=== PATIENT | female | born 1945 | race Caucasian/White ===

== ENCOUNTER 2017-10-21 12:08 | Observation (INO) | payer MEDICARE, MEDICAID ==
[~2017-10-21] VITALS: Ht 160 cm; Wt 92.6 kg
[~2017-10-21 12:08] MED LIST changes: -APIX5TAB PO; -HUM100VI2 SC; -LEVO500T83 PO
[2017-10-21] MEDS ORDERED: NS(*) 0.9% 1000 ML BAG 1,000 ML IV ONE (12:24)
[2017-10-21] MEDS ORDERED: ACETAMINOPHEN(*)1000 MG/100 ML 100 ML IVPB ONE (12:25)
[2017-10-21 12:33] LABS: PLATELET COUNT, AUTOMATED 121 K/uL (150-450)
--- NOTE | 2017-10-21 12:47 | ER Report ---
History and Physical Time Seen By MD: 12:16 Hx. of Stated Complaint: FEVER, AMS HPI/ROS CHIEF COMPLAINT: Fever, altered mental status HISTORY OF PRESENT ILLNESS: 72-year-old female patient presents to emergency room with complaint of altered mental status. Patient states that she is just gotten back from [place]. She was visiting family there. She states that she' s been having a cough. She states she's also had fever. On admission to the emergency room patient had fever 102.5. Patient did take her morning medications with some milk. Other than that she's not had anything to eat or drink. Patient has had no appetite. The niece was there with her who acts as a historian states that she is unsure when the last time the patient ate anything. Patient has been nauseated but denies having any vomiting, diarrhea. REVIEW OF SYSTEMS: Respiratory: As noted above Cardiovascular: No chest pain, no palpitations. Gastrointestinal: No vomiting, no abdominal pain. Musculoskeletal: No back pain. Allergies: Coded Allergies: Penicillins (Verified Allergy, Intermediate, HIVES, 10/21/17) codeine (Verified Allergy, Intermediate, HIVES, 10/21/17) lisinopril (Verified Allergy, Intermediate, ITCHING, RASH, 10/21/17) Iodinated Contrast- Oral and IV Dye (Verified Allergy, Unknown, 10/21/17) fluconazole (Verified Adverse Reaction, Intermediate, DIARRHEA, 10/21/17) hydromorphone HCl (Verified Adverse Reaction, Intermediate, NAUSEA/ VOMITING. "HEAD SPINNING", 10/21/17) Home Meds Active Scripts Clonidine Hcl (CLONIDINE HCL) 0.1 Mg Tablet, 1 TAB PO BID, #180 TAB 0 Refills Prov:SANTOS HAMLIN APRN 10/13/17 Allopurinol (Allopurinol) 300 Mg Tablet, 1 TAB PO QDAY, #90 TAB 2 Refills Prov:SANTOS HAMLIN APRN 10/13/17 Gabapentin (GABAPENTIN) 600 Mg Tablet, 1 TAB PO QHS, #90 TAB 2 Refills Prov:SANTOS HAMLIN APRN-Grace 09/27/17 Lidocaine (Lidocaine) 5 % Adh..patch, 1 PATCH TOP DAILY, #30 PATCH [address] for 12 hours then remove and leave off for 12 hours prior to replacing with a new patch Prov:SANTOS AHMLIN APRNP-C 09/12/17 Atorvastatin Calcium (ATORVASTATIN CALCIUM) 40 Mg Tablet, 1 TAB PO QDAY, #90 TAB 2 Refills Prov:SANTOS HAMLIN APRNP-C 08/12/17 Insulin NPH Hum/Reg Insulin Hm (Humulin 70-30 Vial) 100 Unit/Ml (70-30) Vial, 65 UNITS SUBQ BID, #4 VIAL 5 Refills Sliding Scale Prov:SANTOS HAMLIN APRNP-C 07/25/17 Furosemide (FUROSEMIDE) 40 Mg Tablet, 1 TAB PO BID, #180 TAB 1 Refill Prov:SANTOS HAMLIN APRNP-C 07/21/17 Carvedilol (CARVEDILOL) 12.5 Mg Tablet, 1 TAB PO BID, #180 TAB 3 Refills Prov:SANTOS HAMLIN APRNP-C 05/30/17 Rivaroxaban 15 Mg (XARELTO 15 MG) 15 Mg Tablet, 1 TAB PO DAILY, #90 TAB 1 Refill Prov:SANTOS HAMLIN APRNP-C 05/17/17 Wheelchair (WHEELCHAIR) 1 Each Each, EACH MC, #1 Prov:SANTOS HAMLIN APRNP-C 04/08/17 Amlodipine Besylate (AMLODIPINE BESYLATE) 10 Mg Tablet, 1 TAB PO QDAY, #90 TAB 3 Refills Prov:SANTOS HAMLIN APRN INTEGRATED MARKETING SPECIALIST-C 03/11/17 [Diabetic Supplies] No Conflict Check, 1 [facility] MC 2-3XD, #300 EACH Prov:SANTOS HAMLIN APRN INTEGRATED MARKETING SPECIALIST-C 08/27/16 Reported Medications Oxybutynin Chloride (DITROPAN XL) 10 Mg Tab.er.24, 10 MG PO QDAY, TAB 07/11/17 Potassium Chloride (KLOR-CON M10) 10 Meq Tab.er.prt, 10 MEQ PO QDAY 07/01/17 Nitroglycerin (NITROGLYCERIN) 0.4 Mg Tab.subl, 0.4 MG SL Q5MIN Y for CHEST PAIN 12/09/16 Ipratropium/Albuterol Sulfate (IPRAT-ALBUT 0.5-3(2.5) MG/3 ML) 3 Ml Ampul.neb, 1 VIAL IH Q6H Y for SHORTNESS OF BREATH 12/09/16 Carboxymethylcellulose Sodium (LUBRICANT EYE DROPS) 1 Each Droperette, 1 DROP OP Q4H 12/09/16 Ranitidine Hcl (RANITIDINE HCL) 150 Mg Capsule, 1 CAP PO QDAY, CAPSULE 12/09/16 Vit C/E/Zn/Coppr/Lutein/Zeaxan (Preservision Areds 2 Softgel) 1 Each Capsule, 1 CAP PO BID 12/09/16 Calcium Carb & Cit/Vitamin D3 (CALCIUM + D3 ER TABLET) 1 Each Tablet.er, 1 EACH PO QDAY 12/09/16 Aspirin (ASPIRIN) 81 Mg Tab.chew, 1 TAB PO QDAY, TAB.CHEW 06/02/15 Oxygen (OXYGEN) 2 L Inha, 2 L INH CONTINUOUS, L 02/13/15 Docusate Sodium (Colace 100 Mg) 100 Mg Cap, 1 CAP PO BID, 0 Refills 03/31/12 Past Medical/Surgical History Patient has a past medical history of a cardiac arrest approximately one year ago, [place], angina, CHF, hypertension, hyperlipidemia, shortness of breath with exertion, pneumonia, COPD, 41 year pack history of smoking, chronic constipation , reflux, hiatal hernia, kidney stones, stents, frequent UTIs, arthritis, leg fracture, ankle fracture, back pain, diabetes, bruises easily, skin cancer. Patient has surgical history of aortic valve replacement, pacemaker, abdominal surgery, appendectomy, cholecystectomy, surgery, back surgery, tonsillectomy , cataract surgery, skin cancer removal, hernia repair. Patient has a family medical history of cancer, CAD, diabetes. Reviewed Nurses Notes: Yes Hx Smoking: Yes ("SMOKED A LONG TIME". "I STARTED VERY YOUNG AND QUIT AT AGE 60 ) Smoking Status: Former Smoker Exposure to Second Hand Smoke?: No Hx Substance Use Disorder: No Hx Alcohol Use: No Constitutional Vital Sign - Last 24 Hours 10/21/17 10/21/17 10/21/17 10/21/17 12:16 12:30 12:38 12:38 Temp 102.5 Pulse 99 99 Resp 17 21 B/P (MAP) 124/66 (85) 134/65 (88) 134/65 Pulse Ox 94 95 O2 Delivery Nasal Cannula 10/21/17 10/21/17 10/21/17 10/21/17 13:00 13:08 13:30 13:38 Pulse 97 95 Resp 20 21 B/P (MAP) 137/69 (91) 114/65 (81) Pulse Ox 97 98 10/21/17 10/21/17 14:00 14:55 Temp 99.6 B/P (MAP) 111/54 (73) Physical Exam General Appearance: The patient is alert, has no immediate need for airway protection and no current signs of toxicity. Respiratory: Chest is non tender, lungs are clear to auscultation. Cardiac: regular rate and rhythm Gastrointestinal: Abdomen is soft and non tender, no masses, bowel sounds normal. Musculoskeletal: Neck: Neck is supple and non tender. Extremities have full range of motion and are non tender. Skin: No rashes or lesions. Patient does have some redness to the right side of the abdomen, on exam the skin is warm to the touch, however it is warm all over. DIFFERENTIAL DIAGNOSIS: After history and physical exam differential diagnosis was considered for fever in adults including but not limited to pneumonia, urinary tract infection, viral syndrome, and influenza. Medical Decision Making Data Points Result Diagram: 10/21/17 1206 10/21/17 1206 Laboratory Hematology Test 10/21/17 12:06 10/21/17 12:20 10/21/17 12:34 Red Blood Count 3.50 M/uL (4.17-5.56) Mean Corpuscular Volume 97.7 fL (80.0-96.0) Mean Corpuscular Hemoglobin 32.3 pg (26.0-33.0) Mean Corpuscular Hemoglobin Concent 33.1 g/dL (32.0-36.0) Red Cell Distribution Width 16.6 % (11.5-14.5) Mean Platelet Volume 7.2 fL (7.2-11.1) Neutrophils (%) (Auto) 87.1 % (39.4-72.5) Lymphocytes (%) (Auto) 4.4 % (17.6-49.6) Monocytes (%) (Auto) 7.4 % (4.1-12.4) Eosinophils (%) (Auto) 0.6 % (0.4-6.7) Basophils (%) (Auto) 0.5 % (0.3-1.4) Nucleated RBC Relative Count (auto) 0.0 /100WBC Neutrophils # (Auto) 12.4 K/uL (2.0-7.4) Lymphocytes # (Auto) 0.6 K/uL (1.3-3.6) Monocytes # (Auto) 1.1 K/uL (0.3-1.0) Eosinophils # (Auto) 0.1 K/uL (0.0-0.5) Basophils # (Auto) 0.1 K/uL (0.0-0.1) Nucleated RBC Absolute Count (auto) 0.00 K/uL Erythrocyte Sedimentation Rate 34 mm/HOUR (0-30) Sodium Level 137 mmol/L (137-145) Potassium Level 4.5 mmol/L (3.5-5.0) Chloride Level 97 mmol/L (98-107) Carbon Dioxide Level 31 mmol/L (22-31) Blood Urea Nitrogen 40 mg/dl (7-18) Creatinine 1.10 mg/dl (0.52-1.04) Glomerular Filtration Rate Calc 48.6 Random Glucose 250 mg/dl (75-110) Calcium Level 9.2 mg/dl (8.4-10.2) Total Bilirubin 0.9 mg/dl (0.2-1.3) Aspartate Amino Transf (AST/SGOT) 23 U/L (0-35) Alanine Aminotransferase (ALT/SGPT) 29 U/L (0-56) Alkaline Phosphatase 92 U/L (0-126) C-Reactive Protein 1.4 mg/dl (<1.0) Total Protein 6.7 gm/dl (6.3-8.2) Albumin 3.7 g/dl (3.5-5.0) Influenza Type A Antigen Negative (NEGATIVE) Influenza Type B Antigen Negative (NEGATIVE) Urine Color Yellow Urine Clarity Slightly-cloudy Urine pH 5.0 pH (4.8-9.5) Urine Specific [place] 1.010 Urine Protein 100 mg/dL (NEGATIVE) Urine Glucose (UA) 50 mg/dL (NEGATIVE) Urine Ketones Negative mg/dL (NEGATIVE) Urine Blood Large (NEGATIVE) Urine Nitrite Negative (NEGATIVE) Urine Bilirubin Negative (NEGATIVE) Urine Urobilinogen Negative mg/dL (0.2-1.9) Urine Leukocyte Esterase Moderate (NEGATIVE) Urine RBC 69 /HPF (0-2/HPF) Urine WBC 93 /HPF (0-5/HPF) Urine WBC Clumps Few /HPF Urine Squamous Epithelial Cells Few /LPF (</=FEW) Urine Amorphous Crystals Few /HPF Urine Bacteria Few /HPF (NONE-FEW) Urine Mucus None /HPF (NONE-FEW) Chemistry Test 10/21/17 12:06 10/21/17 12:20 10/21/17 12:34 White Blood Count 14.3 k/uL (4.5-11.0) Red Blood Count 3.50 M/uL (4.17-5.56) Hemoglobin 11.3 g/dL (12.0-16.0) Hematocrit 34.2 % (34.0-47.0) Mean Corpuscular Volume 97.7 fL (80.0-96.0) Mean Corpuscular Hemoglobin 32.3 pg (26.0-33.0) Mean Corpuscular Hemoglobin Concent 33.1 g/dL (32.0-36.0) Red Cell Distribution Width 16.6 % (11.5-14.5) Platelet Count 121 K/uL (150-450) Mean Platelet Volume 7.2 fL (7.2-11.1) Neutrophils (%) (Auto) 87.1 % (39.4-72.5) Lymphocytes (%) (Auto) 4.4 % (17.6-49.6) Monocytes (%) (Auto) 7.4 % (4.1-12.4) Eosinophils (%) (Auto) 0.6 % (0.4-6.7) Basophils (%) (Auto) 0.5 % (0.3-1.4) Nucleated RBC Relative Count (auto) 0.0 /100WBC Neutrophils # (Auto) 12.4 K/uL (2.0-7.4) Lymphocytes # (Auto) 0.6 K/uL (1.3-3.6) Monocytes # (Auto) 1.1 K/uL (0.3-1.0) Eosinophils # (Auto) 0.1 K/uL (0.0-0.5) Basophils # (Auto) 0.1 K/uL (0.0-0.1) Nucleated RBC Absolute Count (auto) 0.00 K/uL Erythrocyte Sedimentation Rate 34 mm/HOUR (0-30) Glomerular Filtration Rate Calc 48.6 Calcium Level 9.2 mg/dl (8.4-10.2) Total Bilirubin 0.9 mg/dl (0.2-1.3) Aspartate Amino Transf (AST/SGOT) 23 U/L (0-35) Alanine Aminotransferase (ALT/SGPT) 29 U/L (0-56) Alkaline Phosphatase 92 U/L (0-126) C-Reactive Protein 1.4 mg/dl (<1.0) Total Protein 6.7 gm/dl (6.3-8.2) Albumin 3.7 g/dl (3.5-5.0) Influenza Type A Antigen Negative (NEGATIVE) Influenza Type B Antigen Negative (NEGATIVE) Urine Color Yellow Urine Clarity Slightly-cloudy Urine pH 5.0 pH (4.8-9.5) Urine Specific [place] 1.010 Urine Protein 100 mg/dL (NEGATIVE) Urine Glucose (UA) 50 mg/dL (NEGATIVE) Urine Ketones Negative mg/dL (NEGATIVE) Urine Blood Large (NEGATIVE) Urine Nitrite Negative (NEGATIVE) Urine Bilirubin Negative (NEGATIVE) Urine Urobilinogen Negative mg/dL (0.2-1.9) Urine Leukocyte Esterase Moderate (NEGATIVE) Urine RBC 69 /HPF (0-2/HPF) Urine WBC 93 /HPF (0-5/HPF) Urine WBC Clumps Few /HPF Urine Squamous Epithelial Cells Few /LPF (</=FEW) Urine Amorphous Crystals Few /HPF Urine Bacteria Few /HPF (NONE-FEW) Urine Mucus None /HPF (NONE-FEW) Urinalysis Test 10/21/17 12:34 Urine Color Yellow Urine Clarity Slightly-cloudy Urine pH 5.0 pH (4.8-9.5) Urine Specific [place] 1.010 Urine Protein 100 mg/dL (NEGATIVE) Urine Glucose (UA) 50 mg/dL (NEGATIVE) Urine Ketones Negative mg/dL (NEGATIVE) Urine Blood Large (NEGATIVE) Urine Nitrite Negative (NEGATIVE) Urine Bilirubin Negative (NEGATIVE) Urine Urobilinogen Negative mg/dL (0.2-1.9) Urine Leukocyte Esterase Moderate (NEGATIVE) Urine RBC 69 /HPF (0-2/HPF) Urine WBC 93 /HPF (0-5/HPF) Urine WBC Clumps Few /HPF Urine Squamous Epithelial Cells Few /LPF (</=FEW) Urine Amorphous Crystals Few /HPF Urine Bacteria Few /HPF (NONE-FEW) Urine Mucus None /HPF (NONE-FEW) EKG/Imaging Imaging EXAMINATION: CT abdomen without IV contrast CT pelvis without IV contrast HISTORY: Fever. Abdominal tenderness. COMPARISON: 08/24/2017. TECHNIQUE: Axial images were taken through the abdomen and pelvis without intravenous contrast. Sagittal and coronal reformatted images are also submitted. One of the following dose optimization techniques was utilized in the performance of this exam: Automated exposure control; adjustment of the mA and/ or kV according to the patient's size; or use of an iterative reconstruction technique. Specific details can be referenced in the facility's radiology CT exam operational policy. FINDINGS: Please note that without intravenous contrast, sensitivity to detection of parenchymal disease is limited. Liver/biliary: Postcholecystectomy. The liver is unremarkable. Pancreas: Pancreas is atrophic. Spleen: Negative. Adrenal glands: Negative. Kidneys: Multiple small nonobstructing calculi in the left kidney, similar to prior examination, the largest measuring 6 mm. Cortical atrophy of both kidneys. There are multiple cysts in both kidneys. Stable stranding in the perinephric fat. No hydronephrosis or ureteral calculi. Pelvic structures: Negative. Bowel: Colonic diverticulosis without evidence of diverticulitis. Appendix is not identified. The bowel is normal caliber without obvious focal wall thickening. Peritoneum/retroperitoneum/mesenteries: Stable stranding in the perinephric fat. No intraperitoneal free air or free fluid. Vessels: Coronary artery calcifications. Extensive calcification of the aorta, iliofemoral arteries, celiac trunk and its branches, and superior and inferior mesenteric arteries. Musculoskeletal/body wall: No significant change in the fluid collection in the lower anterior abdominal wall extending across the anterior abdomen, measuring up to 2.1 cm in AP thickness. There is skin thickening and subcutaneous stranding in the anterior abdominal wall, similar to prior examination. Advanced disc and facet degenerative changes in the thoracolumbar spine. Fusion of the L2 and L3 vertebral bodies, unchanged. Dense material within the subcutaneous soft tissues in the lower back posterior to the spine at the L1 level, unchanged. Laxity in the anterior abdominal wall. Lymph node assessment: Negative. Lower chest: Trace right pleural effusion. Mild subsegmental atelectasis at the lung bases. AICD/pacer leads are partially visualized at the heart. Aortic valve prosthesis. Mitral annulus calcifications. IMPRESSION: No significant change in the fluid collection in the lower anterior abdominal wall. Infection of this fluid collection cannot be excluded on this exam. Small nonobstructing calculi in the left kidney. No hydronephrosis or ureteral calculi. Colonic diverticulosis without evidence of diverticulitis. Trace right pleural effusion. Multiple other chronic findings as detailed in the body of report. Report Dictated By: Martinez Ziegler MD at 10/21/2017 2:28 PM Report E-Signed By: Martinez Ziegler MD at 10/21/2017 2:51 PM CHEST SINGLE AP Indication: Fever, cough and shortness breath for 2 days.. Comparison: 11/06/2016. Findings: Cardiac silhouette remains mildly enlarged but unchanged. Valve replacement changes are again identified. Left subclavian 2-lead pacemaker is in place. Recess silhouette and pulmonary vessels within normal limits. There is no focal infiltrate or lobar consolidation. No pneumothorax or pleural effusion. No nodule. Chronic interstitial changes. Upper abdomen is unremarkable. No acute bony abnormality. IMPRESSION: 1. Stable enlarged cardiac silhouette without indication of edema or infiltrate. Report Dictated By: Jason Nick at 10/21/2017 1:00 PM Report E-Signed By: Jason Nick at 10/21/2017 1:01 PM ED Course/Re-evaluation ED Course Patient was admitted to the exam room, history and physical were obtained. Differential diagnoses were considered. On examination patient has obvious fever she is warm to touch, she also has erythema to the lower abdomen. A CBC, CMP, urinalysis, chest x-ray were done. Patient had obvious urinary tract infection. Patient had a fever 102.5 on admission to the emergency room. Urinalysis was positive for urinary tract infection. Patient had a white count of 14,000 with left shift. A CT scan of abdomen and pelvis was done which showed a collection of fluid in the anterior abdominal wall. I reevaluated the patient, at that time the erythema is warm to the touch. I discussed the findings with the patient and her family. I discussed with them that I felt that she probably should be admitted to the hospital. I spoke with Dr. Banks, hospitalist who agreed to accept the patient for admission. Patient be except the hospital with diagnosis of urinary tract infection, cellulitis and fever. Decision to Disposition Date: Oct 21, 2017 Decision to Disposition Time: 15:22 Depart Departure Latest Vital Signs Vital Signs Date Time Temp Pulse Resp B/P (MAP) Pulse Ox O2 Delivery O2 Flow Rate FiO2 10/21/17 14:55 99.6 10/21/17 14:00 111/54 (73) 10/21/17 13:38 95 21 98 10/21/17 12:38 Nasal Cannula Impression: Primary Impression: UTI (urinary tract infection) Additional Impressions: Cellulitis Fever Condition: Condition Unchanged Disposition: Admitted from ER Referrals: SANTOS HAMLIN APRN INTEGRATED MARKETING SPECIALIST-C (PCP) Problem Qualifiers Primary Impression: UTI (urinary tract infection) Urinary tract infection type: acute cystitis Hematuria presence: with hematuria Qualified Codes: N30.01 - Acute cystitis with hematuria Additional Impressions: Cellulitis Site of cellulitis: trunk Site of cellulitis of trunk: abdominal wall Qualified Codes: L03.311 - Cellulitis of abdominal wall Fever Fever type: unspecified Qualified Codes: R50.9 - Fever, unspecified SCOTTIE PORTER INTEGRATED MARKETING SPECIALIST Oct 21, 2017 12:47
--- NOTE | 2017-10-21 13:05 | RADIOLOGY IMAGING REPORT ---
FACILITY: [facility] PATIENT NAME: Eugenia Rushing : 1945 MR: [id number] V: [id number] EXAM DATE: ORDERING PHYSICIAN: SCOTTIE PORTER TECHNOLOGIST: Location: [facility] [place] Patient: Eugenia Rushing : 1945 Visit/Account:[id number] Date of Sevice: 10/21/2017 CHEST SINGLE AP Indication: Fever, cough and shortness breath for 2 days.. Comparison: 11/06/2016. Findings: Cardiac silhouette remains mildly enlarged but unchanged. Valve replacement changes are again identif ied. Left subclavian 2-lead pacemaker is in place. Recess silhouette and pulmonary vessels within nor mal limits. There is no focal infiltrate or lobar consolidation. No pneumothorax or pleural effusion. No nodule. Chronic interstitial changes. Upper abdomen is unremarkable. No acute bony abnormality. IMPRESSION: 1. Stable enlarged cardiac silhouette without indication of edema or infiltrate. Report Dictated By: Jason Nick at 10/21/2017 1:00 PM Report E-Signed By: Jason Nick at 10/21/2017 1:01 PM WSN:[id number]
[2017-10-21] MEDS ORDERED: IOPAMIDOL 76% 75 ML INFUS BTL 0 ML ONE (13:33)
[2017-10-21] MEDS ORDERED: NS 0.9% 50 ML VIAL 0 ML ONE (13:33)
--- NOTE | 2017-10-21 14:55 | RADIOLOGY IMAGING REPORT ---
[place] [facility] [place]IENT NAME: Eugenia Rushing : 1945 MR: [id number] V: [id number] EXAM DATE: ORDERING PHYSICIAN: SCOTTIE PORTER TECHNOLOGIST: Location: [facility] - [place] Patient: Eugenia Rushing : 1945 Visit/Account:[id number] Date of Sevice: 10/21/2017 EXAMINATION: CT abdomen without IV contrast CT pelvis without IV contrast HISTORY: Fever. Abdominal tenderness. COMPARISON: 08/24/2017. TECHNIQUE: Axial images were taken through the abdomen and pelvis without intravenous contrast. Sag ittal and coronal reformatted images are also submitted. One of the following dose optimization techniques was utilized in the performance of this exam: Autom ated exposure control; adjustment of the mA and/or kV according to the patient's size; or use of an i terative reconstruction technique. Specific details can be referenced in the facility's radiology C T exam operational policy. FINDINGS: Please note that without intravenous contrast, sensitivity to detection of parenchymal disease is francisco ited. Liver/biliary: Postcholecystectomy. The liver is unremarkable. Pancreas: Pancreas is atrophic. Spleen: Negative. Adrenal glands: Negative. Kidneys: Multiple small nonobstructing calculi in the left kidney, similar to prior examination, the largest measuring 6 mm. Cortical atrophy of both kidneys. There are multiple cysts in both kidneys. S table stranding in the perinephric fat. No hydronephrosis or ureteral calculi. Pelvic structures: Negative. Bowel: Colonic diverticulosis without evidence of diverticulitis. Appendix is not identified. The bow el is normal caliber without obvious focal wall thickening. Peritoneum/retroperitoneum/mesenteries: Stable stranding in the perinephric fat. No intraperitoneal f ree air or free fluid. Vessels: Coronary artery calcifications. Extensive calcification of the aorta, iliofemoral arteries, celiac trunk and its branches, and superior and inferior mesenteric arteries. Musculoskeletal/body wall: No significant change in the fluid collection in the lower anterior abdomi nal wall extending across the anterior abdomen, measuring up to 2.1 cm in AP thickness. There is skin thickening and subcutaneous stranding in the anterior abdominal wall, similar to prior examination. Advanced disc and facet degenerative changes in the thoracolumbar spine. Fusion of the L2 and L3 vert ebral bodies, unchanged. Dense material within the subcutaneous soft tissues in the lower back customer support consultant ior to the spine at the L1 level, unchanged. Laxity in the anterior abdominal wall. Lymph node assessment: Negative. Lower chest: Trace right pleural effusion. Mild subsegmental atelectasis at the lung bases. AICD/pace r leads are partially visualized at the heart. Aortic valve prosthesis. Mitral annulus calcifications . IMPRESSION: No significant change in the fluid collection in the lower anterior abdominal wall. Infection of this fluid collection cannot be excluded on this exam. Small nonobstructing calculi in the left kidney. No hydronephrosis or ureteral calculi. Colonic diverticulosis without evidence of diverticulitis. Trace right pleural effusion. Multiple other chronic findings as detailed in the body of report. Report Dictated By: Martinez Ziegler MD at 10/21/2017 2:28 PM Report E-Signed By: Martinez Ziegler MD at 10/21/2017 2:51 PM WSN:[id number]
[2017-10-21 16:36] VITALS: BP 127/63
[2017-10-21] MEDS: INSULIN HUM LISPRO 100 UN/ML 3 ML VIAL SUBQ PRN ×2 (17:37→22:15)
--- NOTE | 2017-10-21 17:54 | History & Physical ---
History of Present Illness Chief Complaint Cough and fever History of Present Illness This patient presented to the emergency room complaining of cough and fever. She reports that her symptoms started approximately 3 days ago when she returned from [place]. She has also had redness of her abdomen. History Problems: (1) DM2 (diabetes mellitus, type 2) (2) Essential hypertension (3) COPD (chronic obstructive pulmonary disease) Status: Chronic (4) Hyperlipidemia Status: Chronic (5) CAD (coronary artery disease) Status: Chronic (6) Gout Status: Chronic (7) Hx of cholecystectomy Status: Chronic (8) Hx of ventral hernia repair Status: Chronic (9) Hx of tonsillectomy Status: Chronic (10) History of aortic valve replacement with bioprosthetic valve Status: Chronic Home Meds Active Scripts Clonidine Hcl (CLONIDINE HCL) 0.1 Mg Tablet, 1 TAB PO BID, #180 TAB 0 Refills Prov:SANTOS HAMLIN APRN-C 10/13/17 Allopurinol (Allopurinol) 300 Mg Tablet, 1 TAB PO QDAY, #90 TAB 2 Refills Prov:SANTOS HAMLIN APRNC 10/13/17 Gabapentin (GABAPENTIN) 600 Mg Tablet, 1 TAB PO QHS, #90 TAB 2 Refills Prov:SANTOS HAMLIN APRN-C 09/27/17 Lidocaine (Lidocaine) 5 % Adh..patch, 1 PATCH TOP DAILY, #30 PATCH [address] in [address] for 12 hours then remove and leave off for 12 hours prior to replacing with a new patch Prov:SANTOS HAMLIN APRN 09/12/17 Atorvastatin Calcium (ATORVASTATIN CALCIUM) 40 Mg Tablet, 1 TAB PO QDAY, #90 TAB 2 Refills Prov:SANTOS HAMLIN APRNC 08/12/17 Insulin NPH Hum/Reg Insulin Hm (Humulin 70-30 Vial) 100 Unit/Ml (70-30) Vial, 65 UNITS SUBQ BID, #4 VIAL 5 Refills Sliding Scale Prov:SANTOS HAMLIN APRN-C 07/25/17 Furosemide (FUROSEMIDE) 40 Mg Tablet, 1 TAB PO BID, #180 TAB 1 Refill Prov:SANTOS HAMLIN APRNC 07/21/17 Carvedilol (CARVEDILOL) 12.5 Mg Tablet, 1 TAB PO BID, #180 TAB 3 Refills Prov:SANTOS HAMLIN APRN-C 05/30/17 Rivaroxaban 15 Mg (XARELTO 15 MG) 15 Mg Tablet, 1 TAB PO DAILY, #90 TAB 1 Refill Prov:SANTOS HAMLIN APRN-C 05/17/17 Wheelchair (WHEELCHAIR) 1 Each Each, EACH MC, #1 Prov:SANTOS HAMLIN APRN-C 04/08/17 Amlodipine Besylate (AMLODIPINE BESYLATE) 10 Mg Tablet, 1 TAB PO QDAY, #90 TAB 3 Refills Prov:SANTOS HAMLIN APRN-C 03/11/17 [Diabetic Supplies] No Conflict Check, 1 [facility] 2-3XD, #300 EACH Prov:SANTOS HAMLIN APRN-C 08/27/16 Reported Medications Oxybutynin Chloride (DITROPAN XL) 10 Mg Tab.er.24, 10 MG PO QDAY, TAB 07/11/17 Potassium Chloride (KLOR-CON M10) 10 Meq Tab.er.prt, 10 MEQ PO QDAY 07/01/17 Nitroglycerin (NITROGLYCERIN) 0.4 Mg Tab.subl, 0.4 MG SL Q5MIN Y for CHEST PAIN 12/09/16 Ipratropium/Albuterol Sulfate (IPRAT-ALBUT 0.5-3(2.5) MG/3 ML) 3 Ml Ampul.neb, 1 VIAL IH Q6H Y for SHORTNESS OF BREATH 12/09/16 Carboxymethylcellulose Sodium (LUBRICANT EYE DROPS) 1 Each Droperette, 1 DROP OP Q4H 12/09/16 Ranitidine Hcl (RANITIDINE HCL) 150 Mg Capsule, 1 CAP PO QDAY, CAPSULE 12/09/16 Vit C/E/Zn/Coppr/Lutein/Zeaxan (Preservision Areds 2 Softgel) 1 Each Capsule, 1 CAP PO BID 12/09/16 Calcium Carb & Cit/Vitamin D3 (CALCIUM + D3 ER TABLET) 1 Each Tablet.er, 1 EACH PO QDAY 12/09/16 Aspirin (ASPIRIN) 81 Mg Tab.chew, 1 TAB PO QDAY, TAB.CHEW 06/02/15 Oxygen (OXYGEN) 2 L Inha, 2 L INH CONTINUOUS, L 02/13/15 Docusate Sodium (Colace 100 Mg) 100 Mg Cap, 1 CAP PO BID, 0 Refills 03/31/12 Allergies: Coded Allergies: Penicillins (Verified Allergy, Intermediate, HIVES, 10/21/17) codeine (Verified Allergy, Intermediate, HIVES, 10/21/17) lisinopril (Verified Allergy, Intermediate, ITCHING, RASH, 10/21/17) Iodinated Contrast- Oral and IV Dye (Verified Allergy, Unknown, 10/21/17) fluconazole (Verified Adverse Reaction, Intermediate, DIARRHEA, 10/21/17) hydromorphone HCl (Verified Adverse Reaction, Intermediate, NAUSEA/ VOMITING. "HEAD SPINNING", 10/21/17) Patient History: FH: diabetes mellitus MOTHER, , Age:72 Hx Smoking: Yes ("SMOKED A LONG TIME". "I STARTED VERY YOUNG AND QUIT AT AGE 60 ) Smoking Status: Former Smoker Exposure to Second Hand Smoke?: No Caffeine Intake: Soda Caffeine/Cups Per Day: 2-3 Hx Alcohol Use: No Hx Substance Use Disorder: No Social Drug Use: Never Review of Systems All Systems Reviewed/Normal: Yes, Except as Noted Constitutional: Fever Respiratory: Shortness of Breath, Cough Exam Vital Signs Vital Signs Date Time Temp Pulse Resp B/P (MAP) Pulse Ox O2 Delivery O2 Flow Rate FiO2 10/21/17 16:36 100.5 93 16 127/63 (84) 94 Nasal Cannula 3.0 Neuro: No Gross deficits Eyes: PERRLA Cardiovascular: Regular Rate and Rhythm Respiratory: Other (Bilateral rhonchi.) GI: Other (Distended, but nontender.) Extremities: Edema Integumentary: Other (petechia on abdominal wall.) Medical Decision Making Data Points Result Diagram: 10/21/17 1206 10/21/17 1206 Item Value Date Time Influenza Type A Antigen Negative 10/21/17 1220 Influenza Type B Antigen Negative 10/21/17 1220 EKG / Imaging Imaging Chest x-ray reviewed CT abdomen/pelvis reviewed. Assessment and Plan Problems: (1) Fever Status: Acute Assessment & Plan: She did present with cough and fever. Her initial chest x- ray is negative, but she does have rhonchi on clinical exam. We have started her on empiric treatment with levofloxacin. Blood cultures are pending. She did recently return from visiting family in [place], therefore, we have ordered testing for coccoides. A repeat chest x-ray has also been ordered. (2) Dermatitis Assessment & Plan: She does have petechia on the abdominal wall, but it doesn' t have the appearance of infection. A CT scan of the abdomen did detect a large fluid collection in the abdominal wall, but this has been present since a previous surgery for panniculitis and is unchanged. (3) Pyuria Assessment & Plan: She did have leukocytes and WBC clumps on her urinalysis, but is not having urinary symptoms. She is on levofloxacin as above. A culture is pending. (4) Essential hypertension Assessment & Plan: She is on chronic treatment for hypertension, but we are awaiting an updated medication list. (5) DM2 (diabetes mellitus, type 2) Assessment & Plan: She is on chronic treatment with 70/30 insulin. We have also started her on sliding scale level #2. (6) Diabetic neuropathy Status: Chronic (7) COPD (chronic obstructive pulmonary disease) Status: Chronic (8) Gout Status: Chronic (9) CAD (coronary artery disease) Status: Chronic (10) Nephrolithiasis Status: Acute (11) Chronic renal disease, stage 3, moderately decreased glomerular filtration rate between 30-59 mL/min/1.73 square meter (12) Obesity (BMI 30-39.9) Copies to: CHARLES GONSALVES MD Venous Thromboembolism Antithrombotics Is Pt On Any Antithrombotics?: Yes Exam Sepsis Risk: No Definite Risk Problem Qualifiers (1) Fever: Fever type: unspecified Qualified Codes: R50.9 - Fever, unspecified JENNY ALFONSO DO Oct 21, 2017 17:54
[2017-10-21] MEDS: NS(*) 0.9% 1000 ML BAG 1,000 ML IV PRN (17:57)
[2017-10-21] MEDS: LEVOFLOXACIN/D5W*500 MG/100 ML 100 ML IVPB SCH (18:11)
[2017-10-21 20:00] VITALS: BP 119/65
[2017-10-21] MEDS: guaiFENesin SYRP 100MG/5ML UDC PO PRN (20:47)
[2017-10-21] MEDS: DOCUSATE SODIUM 100 MG CAP PO SCH (21:58)
[2017-10-21] MEDS: CARVEDILOL 6.25 MG TAB PO SCH (21:58)
[2017-10-21] MEDS: GABAPENTIN 300 MG CAP PO SCH (21:58)
[2017-10-21] MEDS: ACETAMINOPHEN 325 MG TAB PO PRN (21:59)
[2017-10-21] MEDS: cloNIDine HCL 0.1 MG TAB PO SCH (22:00)
[2017-10-21] MEDS: LIDOCAINE 5% PATCH TP SCH (22:00)
[2017-10-21] MEDS: INS HUMAN ISOPH/INS REG 70/30 100 UNIT/ML 3ML VIAL SUBQ SCH (22:18)
[2017-10-21] MEDS: RIVAROXABAN 10 MG TAB PO SCH (22:42)
[2017-10-21 23:30] VITALS: BP 118/75
[2017-10-22 04:59] VITALS: BP 130/71
[2017-10-22] MEDS: guaiFENesin SYRP 100MG/5ML UDC PO PRN (05:06)
[2017-10-22] MEDS: NS(*) 0.9% 1000 ML BAG 1,000 ML IV PRN (05:06)
[2017-10-22 06:04] LABS: PLATELET COUNT, AUTOMATED 108 K/uL (150-450)
--- NOTE | 2017-10-22 06:40 | RADIOLOGY IMAGING REPORT ---
FACILITY: [facility] - [place] PATIENT NAME: Eugenia Rushing : 1945 MR: [id number] V: [id number] EXAM DATE: ORDERING PHYSICIAN: JENNY ALFONSO TECHNOLOGIST: [place] [facility] [place] Patient: Eugenia Rushing : 1945 Visit/Account:[id number] Date of Sevice: 10/22/2017 CHEST PA AND LATERAL 10/22/2017 6:00 AM. INDICATION: Cough. COMPARISON: Yesterday. FINDINGS: Lungs are well-expanded. New peripheral interstitial opacities. No pneumothorax or pleura l effusion. Pulmonary vasculature is unremarkable. Heart size is unchanged. Implanted pacer/defibr illator and aortic valve prosthesis. IMPRESSION: Newly apparent mild pulmonary edema and small pleural effusions; question mild CHF. Report Dictated By: Ramon Garcia MD at 10/22/2017 6:33 AM Report E-Signed By: Ramon Garcia MD at 10/22/2017 6:35 AM WSN:[id number]
[2017-10-22] MEDS ORDERED: ALBUTEROL 2.5 MG/3 ML NEB NEB PRN (08:45)
[2017-10-22] MEDS ORDERED: RIVAROXABAN 10 MG TAB PO SCH (09:00)
[2017-10-22] MEDS ORDERED: FUROSEMIDE 20 MG/2 ML VIAL IVP ONE ×2 (09:00)
[2017-10-22] MEDS ORDERED: LIDOCAINE 5% PATCH TP SCH (09:00)
[2017-10-22 09:38] VITALS: BP 138/57
[2017-10-22] MEDS: CARVEDILOL 6.25 MG TAB PO SCH ×2 (09:42→21:09)
[2017-10-22] MEDS: POTASSIUM CHL 10 MEQ TABCR PO SCH (09:42)
[2017-10-22] MEDS: INS HUMAN ISOPH/INS REG 70/30 100 UNIT/ML 3ML VIAL SUBQ SCH ×2 (09:43→21:10)
[2017-10-22] MEDS: amLODIPine BESYL(*) 5 MG TAB PO SCH (09:43)
[2017-10-22] MEDS: ALLOPURINOL 300 MG TAB PO SCH (09:43)
[2017-10-22] MEDS: OXYBUTYNIN CHL XL 5 MG TABCR PO SCH (09:43)
[2017-10-22] MEDS: RANITIDINE HCL 150 MG TAB PO SCH (09:43)
[2017-10-22] MEDS: PATCH REMOVAL 1 EA TP SCH (09:44)
[2017-10-22] MEDS: cloNIDine HCL 0.1 MG TAB PO SCH ×2 (09:44→21:08)
[2017-10-22] MEDS: DOCUSATE SODIUM 100 MG CAP PO SCH ×2 (09:44→21:08)
[2017-10-22 10:24] VITALS: Ht 160 cm; Wt 92.6 kg
[2017-10-22] MEDS: ALBUTEROL/IPRATROPIUM 3 ML NEB NEB SCH ×2 (11:37→17:48)
--- NOTE | 2017-10-22 12:13 | Hospitalist Progress Note ---
Subjective Progress Notes Subjective The patient states she is breathing better today. Physical Exam Vital Signs Date Time Temp Pulse Resp B/P (MAP) Pulse Ox O2 Delivery O2 Flow Rate FiO2 10/22/17 11:40 75 14 10/22/17 11:35 96 Nasal Cannula 2.0 10/22/17 09:38 98.3 138/57 (84) Intake and Output 10/23/17 07:01 # Voids 1 General Appearance: Alert, Awake, No Acute Distress, Afebrile Neuro: No Gross deficits Cardiovascular: Regular Rate and Rhythm Respiratory: Other (Few very faint crackles L base.) GI: Soft and Non-Tender Extremities: Warm, Perfused, Other (Trace edema.) Integumentary: Skin Intact without Lesion / Mass Psych: Appropriate Mood & Affect Result Diagram: 10/22/1753710/22/17537 Assessment and Plan Problems: (1) Fever Status: Acute Assessment & Plan: She did present with cough and fever. Her initial chest x- ray was negative, but she does have rhonchi on clinical exam. Repeat CXR today does show interstitial changes and the radiologist felt she could have CHF. Clinically, however, her picture is more consistent with an interstitial pneumonia. We have started her on empiric treatment with levofloxacin. Blood cultures are pending. She did recently return from visiting family in [place], therefore, we have ordered testing for coccoides. (2) Dermatitis Assessment & Plan: She does have petechiae on the abdominal wall, but it doesn 't have the appearance of infection. A CT scan of the abdomen did detect a large fluid collection in the abdominal wall, but this has been present since a previous surgery for panniculitis and is unchanged. (3) Pyuria Assessment & Plan: She did have leukocytes and WBC clumps on her urinalysis, but is not having urinary symptoms. She has been on levofloxacin as above. Her urine is growing gram + cocci, greater than 100,000 colonies.HPF. Will add Vanco until ID and sensitivity are available. (4) Essential hypertension Assessment & Plan: She is on chronic treatment for hypertension with carvedilol 12.5mg bid, clonidine 0.1mg bid, amlodipine 10mg daily and Lasix 40mg bid. (5) DM2 (diabetes mellitus, type 2) Assessment & Plan: She is on chronic treatment with 70/30 insulin 65u bid. We have also started her on sliding scale level #2. She is on gabapentin 600mg at HS for diabetic neuropathy. (6) Diabetic neuropathy Status: Chronic Assessment & Plan: Continue gabapentin 600mg at HS. (7) COPD (chronic obstructive pulmonary disease) Status: Chronic Assessment & Plan: Continue O2. The patient has Duonebs at home to use prn. (8) Gout Status: Chronic Assessment & Plan: Continue allopurinol 300mg daily. (9) CAD (coronary artery disease) Status: Chronic Assessment & Plan: Continue ASA 81mg daily and carvedilol 12.5mg bid. NTG prn. (10) Nephrolithiasis Status: Chronic (11) Chronic renal disease, stage 3, moderately decreased glomerular filtration rate between 30-59 mL/min/1.73 square meter Status: Chronic (12) Obesity (BMI 30-39.9) Status: Chronic Time Spent on Plan of Care: < 30 min Copies to: SANTOS HAMLIN APRN DIE MAKER-C Exam Sepsis Risk: No Definite Risk Problem Qualifiers (1) Fever: Fever type: unspecified Qualified Codes: R50.9 - Fever, unspecified FRANCESCA MANSFIELD MD Oct 22, 2017 12:13
[2017-10-22 14:44] VITALS: BP 132/66
[2017-10-22] MEDS: VANCOMYCIN(*) 1 GM VIAL 1 GM, VANCOMYCIN (*) 0.5 GM VIAL 0.25 GM in NS(*) 0.9% 250 ML B... IVPB SCH (14:56)
[2017-10-22] MEDS: LEVOFLOXACIN/D5W*500 MG/100 ML 100 ML IVPB SCH (18:21)
[2017-10-22 19:05] VITALS: BP 119/92
[2017-10-22] MEDS ORDERED: PATCH REMOVAL 1 EA TP SCH (21:00)
[2017-10-22] MEDS: LIDOCAINE 5% PATCH TP SCH (21:07)
[2017-10-22] MEDS: RIVAROXABAN 10 MG TAB PO SCH (21:08)
[2017-10-22] MEDS: GABAPENTIN 300 MG CAP PO SCH (21:08)
[2017-10-22] MEDS: INSULIN HUM LISPRO 100 UN/ML 3 ML VIAL SUBQ PRN (21:14)
[2017-10-22] MEDS: ACETAMINOPHEN 325 MG TAB PO PRN (21:53)
[2017-10-22] MEDS ORDERED: GABA-549 PO (22:48)
[2017-10-22] MEDS ORDERED: HUM100VI2 SC (22:48)
[2017-10-22 22:57] VITALS: BP 119/70
[2017-10-23] MEDS: VANCOMYCIN(*) 1 GM VIAL 1 GM, VANCOMYCIN (*) 0.5 GM VIAL 0.25 GM in NS(*) 0.9% 250 ML B... IVPB SCH (02:15)
[2017-10-23 03:16] VITALS: BP 115/61
[2017-10-23] MEDS: ALBUTEROL/IPRATROPIUM 3 ML NEB NEB SCH ×3 (05:43→17:39)
[2017-10-23 06:10] LABS: PLATELET COUNT, AUTOMATED 125 K/uL (150-450)
[2017-10-23 07:36] VITALS: BP 130/69
[2017-10-23] MEDS: ACETAMINOPHEN 325 MG TAB PO PRN ×2 (07:40→20:16)
[2017-10-23] MEDS: INSULIN HUM LISPRO 100 UN/ML 3 ML VIAL SUBQ PRN ×3 (08:33→21:08)
[2017-10-23] MEDS: PATCH REMOVAL 1 EA TP SCH (08:33)
[2017-10-23] MEDS: cloNIDine HCL 0.1 MG TAB PO SCH ×2 (08:35→21:03)
[2017-10-23] MEDS: ALLOPURINOL 300 MG TAB PO SCH (08:35)
[2017-10-23] MEDS: DOCUSATE SODIUM 100 MG CAP PO SCH ×2 (08:35→21:03)
[2017-10-23] MEDS: RANITIDINE HCL 150 MG TAB PO SCH (08:35)
[2017-10-23] MEDS: amLODIPine BESYL(*) 5 MG TAB PO SCH (08:36)
[2017-10-23] MEDS: POTASSIUM CHL 10 MEQ TABCR PO SCH (08:39)
[2017-10-23] MEDS: CARVEDILOL 6.25 MG TAB PO SCH ×2 (08:39→21:03)
[2017-10-23] MEDS: OXYBUTYNIN CHL XL 5 MG TABCR PO SCH (08:39)
[2017-10-23] MEDS ORDERED: INFLUENZA VIRUS VAC 0.5 ML SYR IM ONLY ONE (09:00)
[2017-10-23] MEDS: INS HUMAN ISOPH/INS REG 70/30 100 UNIT/ML 3ML VIAL SUBQ SCH ×2 (10:54→21:09)
--- NOTE | 2017-10-23 13:04 | Hospitalist Progress Note ---
Subjective Progress Notes Subjective She reports feeling improved. No fever. She has had some left shoulder pain. Physical Exam Vital Signs Date Time Temp Pulse Resp B/P (MAP) Pulse Ox O2 Delivery O2 Flow Rate FiO2 10/23/17 11:33 100 Nasal Cannula 2.0 10/23/17 11:33 69 10/23/17 11:21 16 10/23/17 07:36 98.2 130/69 (89) Intake and Output 10/24/17 07:01 Intake Total 236 ml Balance 236 ml Intake Oral 236 ml General Appearance: Alert, Awake Cardiovascular: Regular Rate and Rhythm (distant tones) Respiratory: Other (few scattered rhonchi) Chest: No Tenderness GI: Soft and Non-Tender Musculoskeletal: Other (some mild left shoulder discomfort with ROM/no trigger points elicited) Extremities: Warm, Perfused Psych: Alert & Oriented X3 Result Diagram: 10/23/17 0549 10/23/17 0549 Assessment and Plan Problems: (1) Fever Status: Acute Assessment & Plan: She did present with cough and fever. Her initial chest x- ray was negative, but she does have rhonchi on exam. Repeat CXR yesterday did show interstitial changes and the radiologist felt she could have CHF. Clinically, however, her picture is more consistent with an interstitial pneumonia. We have started her on empiric treatment with levofloxacin. Blood cultures are pending. She did recently return from visiting family in [place], therefore she may have been exposed to coccidiomycosis. We did order coccidioides titers. Unfortunately, if she did need treatment, she has had an adverse reaction (diarrhea) to fluconazole. (2) Pyuria Assessment & Plan: She did have leukocytes and WBC clumps on her urinalysis, but was not having much in the way of urinary symptoms. She has been on levofloxacin and vancomycin. Her urine is growing group B streptococcus, which is sensitive to the levofloxacin. Will now stop the vancomycin. (3) Dermatitis Assessment & Plan: She does have petechiae on the abdominal wall, but it doesn' t have the appearance of infection. A CT scan of the abdomen did detect a large fluid collection in the abdominal wall, but this has been present since a previous surgery for panniculitis and is unchanged. (4) Essential hypertension Assessment & Plan: She is on chronic treatment for hypertension with carvedilol 12.5mg bid, clonidine 0.1mg bid, amlodipine 10mg daily and Lasix 40mg bid. (5) DM2 (diabetes mellitus, type 2) Assessment & Plan: She has been on chronic treatment with 70/30 insulin 45-50u bid. We have also started her on sliding scale insulin. She is on gabapentin 600mg at HS for diabetic neuropathy. (6) Diabetic neuropathy Status: Chronic Assessment & Plan: Continue gabapentin 600mg at HS. (7) COPD (chronic obstructive pulmonary disease) Status: Chronic Assessment & Plan: Continue O2. The patient has Duo-Neb at home to use prn. (8) Gout Status: Chronic Assessment & Plan: Continue allopurinol 300mg daily. (9) CAD (coronary artery disease) Status: Chronic Assessment & Plan: Continue ASA 81mg daily and carvedilol 12.5mg bid. NTG prn. (10) Nephrolithiasis Status: Chronic (11) Chronic renal disease, stage 3, moderately decreased glomerular filtration rate between 30-59 mL/min/1.73 square meter Status: Chronic Assessment & Plan: Her creatinine is 1.2 today, which is just below her baseline. (12) Obesity (BMI 30-39.9) Status: Chronic Exam Sepsis Risk: No Definite Risk Problem Qualifiers (1) Fever: Fever type: unspecified Qualified Codes: R50.9 - Fever, unspecified JOSE E MANSFIELD MD Oct 23, 2017 13:04
[2017-10-23 14:56] VITALS: BP 129/70
[2017-10-23] MEDS: LEVOFLOXACIN/D5W*500 MG/100 ML 100 ML IVPB SCH (17:30)
[2017-10-23 19:01] VITALS: BP 154/83
[2017-10-23] MEDS: PHENAZOPYRIDINE 200 MG TAB PO SCH (21:03)
[2017-10-23] MEDS: LIDOCAINE 5% PATCH TP SCH (21:04)
[2017-10-23] MEDS: guaiFENesin SYRP 100MG/5ML UDC PO PRN (21:04)
[2017-10-23] MEDS: RIVAROXABAN 10 MG TAB PO SCH (21:04)
[2017-10-23] MEDS: GABAPENTIN 300 MG CAP PO SCH (21:04)
[2017-10-23] MEDS: [UNRECOGNIZED DRUG - OTHER] PO SCH (21:05)
[2017-10-23 22:20] VITALS: BP 126/95
[2017-10-24 04:30] VITALS: BP 128/74
[2017-10-24] MEDS: ALBUTEROL/IPRATROPIUM 3 ML NEB NEB SCH ×2 (05:21→11:02)
[2017-10-24 06:01] LABS: PLATELET COUNT, AUTOMATED 122 K/uL (150-450)
[2017-10-24 07:29] VITALS: BP 132/73
--- NOTE | 2017-10-24 08:33 | RADIOLOGY IMAGING REPORT ---
FACILITY: [facility] - [place] PATIENT NAME: SHANTE ROME : [id number] MR: [id number] V: [id number] EXAM DATE: ORDERING PHYSICIAN: FRANCESCA MANSFIELD TECHNOLOGIST: Stacie Bradley EXAMINATION:TWO-DIMENSIONAL ECHOCARDIOGRAPH REASON:HISTORY OF AORTIC VALVE REPLACECMENT, CONGESTIVE HEART FAILURE, PACE,MALER AMD DEFIBRILLATOR. 2D Measurements (normal values in centimeters) LV endLV endRV endVent.LV PostAorticLeftPercent DiastolicSystolicDiastolicSeptumWallRootAtriumShortening (3.5-5.7)(0.9-2.6)(0.6-1.1)(0.6-1.1)(2.0-3.7)(1.9-4.0)(25-35%) [id number]% STROKE VOLUME: 63 mL ESTIMATED EJECTION FRACTION:57% PARASTERNAL LONG AXIS: Overall left ventricular function appears to be normal. There is mild concentric left ventricular thickening. The right ventricle appears to contract normally. The left atrium appears to be markedly enlarged. The aortic valve appears to be a bioprosthetic valve. Color examination of the valves reveals some mitral insufficiency as well as some tricuspid insufficiency present. Color examination of the aortic valve was unremarkable. PARASTERNAL SHORT AXIS: Overall left ventricular function again appears to be normal. The patient is in a bundle branch or paced rhythm. Mild flattening along the interventricular septum. Mild concentric left ventricular thickening is noted. APICAL FOUR AND TWO CHAMBER: Again, left ventricular systolic function appears to be normal. The right ventricle is enlarged. The right atrium is enlarged. The left atrium is enlarged. Aortic valve area was measured at 1.6 cm2 with mean pressure gradient across the valve of 12 mmHg. The dimensionless index was 0.6. The mitral valve area was measured at 1.8 cm2. Left atrial and right atrial volumes are severely increased at 48 and 43 ml/m2. Color examination of the mitral valve reveals a moderate amount of mitral insufficiency. Color examination of the tricuspid valve revealed mild to moderate tricuspid insufficiency present. Tricuspid regurgitation V-max is measured at 3.5 m/sec. The estimated right atrial pressure is 15 mmHg. Trace to mild amount of pulmonic insufficiency is noted. SUBCOSTAL VIEW: No pericardial effusion was noted. No atrial septal or ventricular septal defects were appreciated. The patient could possibly be underlying rhythm of atrial fibrillation/flutter. No thrombi are noted in any of the chambers but the left atrial appendage was not seen. Doppler examination of the mitral valve in diastole does reveal a normal pattern but the medial and lateral E prime velocities are decreased at 6.4 cm2 respectively. IVC is enlarged at 2.48 cm. OVERALL IMPRESSION: 1. Normal left ventricular ejection fraction of 57%. There is a grade 2/4 decrease in diastolic function. 2. Mild concentric left ventricular thickening with no evidence for any outflow tract obstruction. 3. There is enlargement of the right ventricle,a mild to moderate enlargement with severe enlargement of the right atrium and the left atrium. The left ventricle is normal in size. 4. A bioprosthetic aortic valve with a valve area of 1.6 cm2 with mean pressure gradient across the valve of 12 mmHg and a dimensionless index of 0.6 indicating mild aortic stenosis. No aortic insufficiency was noted. 5. Mitral annular calcification. No mitral stenosis was noted. There is a mild to borderline moderate amount of mitral insufficiency present. 6. A mild amount of tricuspid and pulmonic insufficiency present. The estimated right ventricular systolic pressure is 64 mmHg which does include an estimated right atrial pressure of 15 mmHg indicating severe pulmonary hypertension and increased right ventricular systolic pressures. 7. Pacemaker present in the right sided heart chambers. 8. At times it appears the patient may be in atrial flutter. No thrombi were noted but the left atrial appendage was not seen. 9. In comparison to the examination done on 06/24/16, the only significant change is that the right sided heart pressures have increased substantially. It increased from a normal range of 30 mmHg to 64 mmHg. The right atrial pressure is increased from normal of 5 to 15 mmHg. 10. The aortic valve area appears to be approximately the same as well as the mitral valve area. There is now a pacemaker defibrillator present in the right sided heart chambers Dictated by: Denia March M.D. on 10/22/2017 at 19:52 Transcribed by: BOBO on 10/23/2017 at 20:21 Approved by: Denia March M.D. on 10/24/2017 at 8:31 [facility] [employer]
[2017-10-24] MEDS: PATCH REMOVAL 1 EA TP SCH (08:44)
[2017-10-24] MEDS: PHENAZOPYRIDINE 200 MG TAB PO SCH (08:45)
[2017-10-24] MEDS: amLODIPine BESYL(*) 5 MG TAB PO SCH (08:45)
[2017-10-24] MEDS: OXYBUTYNIN CHL XL 5 MG TABCR PO SCH (08:45)
[2017-10-24] MEDS: cloNIDine HCL 0.1 MG TAB PO SCH (08:45)
[2017-10-24] MEDS: DOCUSATE SODIUM 100 MG CAP PO SCH (08:45)
[2017-10-24] MEDS: POTASSIUM CHL 10 MEQ TABCR PO SCH (08:45)
[2017-10-24] MEDS: CARVEDILOL 6.25 MG TAB PO SCH (08:45)
[2017-10-24] MEDS: ALLOPURINOL 300 MG TAB PO SCH (08:46)
[2017-10-24] MEDS: RANITIDINE HCL 150 MG TAB PO SCH (08:46)
[2017-10-24] MEDS: [UNRECOGNIZED DRUG - OTHER] PO SCH (08:49)
[2017-10-24] MEDS: INS HUMAN ISOPH/INS REG 70/30 100 UNIT/ML 3ML VIAL SUBQ SCH (08:50)
[2017-10-24] MEDS ORDERED: FUROSEMIDE 40 MG TAB PO SCH (09:00)
[2017-10-24] MEDS ORDERED: ASPIRIN 81 MG ENTERIC COATED PO SCH (09:05)
[2017-10-24] MEDS ORDERED: GABAPENTIN 300 MG CAP PO SCH ×2 (09:05→21:00)
[2017-10-24] MEDS ORDERED: LEVO500T83 PO (09:56)
--- NOTE | 2017-10-24 10:04 | Hospitalist Depart ---
Discharge Summary Reason for Hosp/Final Diag: (1) Interstitial pneumonia Hospital Course & Plan: She did present with cough and fever. Her initial chest x-ray was negative, but a subsequent x-ray did show some interstitial changes. We did start her on empiric treatment with levofloxacin. Blood cultures are negative. She did recently return from visiting family in [place], therefore she may have been exposed to coccidiomycosis. We did order testing for coccoides, but these are still pending. She has clinically improved. (2) Pyuria Hospital Course & Plan: She did have leukocytes and WBC clumps on her urinalysis, but did not have urinary symptoms. Her culture grew Staphylococcus epidermidis. She is on levofloxacin as above. (3) Dermatitis Hospital Course & Plan: She did have petechiae on the abdominal wall, but it didn't have the appearance of infection. A CT scan of the abdomen did detect a large fluid collection in the abdominal wall, but this has been present since a previous surgery for panniculitis and is unchanged. (4) Essential hypertension Hospital Course & Plan: She is on chronic treatment for hypertension with carvedilol, clonidine, amlodipine, and Lasix. (5) DM2 (diabetes mellitus, type 2) Hospital Course & Plan: She has been on chronic treatment with 70/30. (6) Diabetic neuropathy Status: Chronic Hospital Course & Plan: She is on chronic treatment with gabapentin. (7) COPD (chronic obstructive pulmonary disease) Status: Chronic Hospital Course & Plan: She is on chronic treatment with oxygen and nebulizers (8) Gout Status: Chronic Hospital Course & Plan: She is on chronic treatment with allopurinol. (9) CAD (coronary artery disease) Status: Chronic Hospital Course & Plan: She is on chronic treatment with aspirin and carvedilol. (10) Nephrolithiasis Status: Chronic (11) Chronic renal disease, stage 3, moderately decreased glomerular filtration rate between 30-59 mL/min/1.73 square meter Status: Chronic (12) Obesity (BMI 30-39.9) Status: Chronic Departure Latest Vital Signs Vital Signs 10/24/17 07:29 Temp 98.0 Pulse 67 Resp 16 B/P (MAP) 132/73 (92) Pulse Ox 94 O2 Delivery Nasal Cannula O2 Flow Rate 2.0 Weight (Pounds): 204 Weight (Ounces): 2.0 Result Diagram: 10/24/1753010/24/17530 Condition: Improved Discharge: Home, Self Care Discharge Instructions Home Meds Active Scripts Levofloxacin 500 Mg Tab (LEVOFLOXACIN 500 MG TAB) 500 Mg Tablet, 500 MG PO QDAY , #4 TAB Prov:JENNY ALFONSO 10/24/17 Clonidine Hcl (CLONIDINE HCL) 0.1 Mg Tablet, 1 TAB PO BID, #180 TAB 0 Refills Prov:[facility]OS HAMLIN [facility] 10/13/17 Allopurinol (Allopurinol) 300 Mg Tablet, 1 TAB PO QDAY, #90 TAB 2 Refills Prov:[facility]OS HAMLIN [facility] 10/13/17 Gabapentin (GABAPENTIN) 600 Mg Tablet, 1 TAB PO QHS, #90 TAB 2 Refills Prov:SANTOS HAMLIN APRN [facility] 09/27/17 Lidocaine (Lidocaine) 5 % Adh..patch, 1 PATCH TOP DAILY, #30 PATCH [address] in [address] for 12 hours then remove and leave off for 12 hours prior to replacing with a new patch Prov:SANTOS HAMLIN [facility] 09/12/17 Atorvastatin Calcium (ATORVASTATIN CALCIUM) 40 Mg Tablet, 1 TAB PO QDAY, #90 TAB 2 Refills Prov:SANTOS HAMLIN [facility] 08/12/17 Furosemide (FUROSEMIDE) 40 Mg Tablet, 1 TAB PO BID, #180 TAB 1 Refill Prov:SANTOS HAMLIN APRN [facility] 07/21/17 Carvedilol (CARVEDILOL) 12.5 Mg Tablet, 1 TAB PO BID, #180 TAB 3 Refills Prov:SANTOS HAMLIN APRN [facility] 05/30/17 Rivaroxaban 15 Mg (XARELTO 15 MG) 15 Mg Tablet, 1 TAB PO DAILY, #90 TAB 1 Refill Prov:[facility]OS [facility]AMLIN [facility] 05/17/17 Wheelchair (WHEELCHAIR) 1 Each Each, EACH , #1 Prov:SANTOS HAMLIN APRNC 04/08/17 Amlodipine Besylate (AMLODIPINE BESYLATE) 10 Mg Tablet, 1 TAB PO QDAY, #90 TAB 3 Refills Prov:SANTOS HAMLIN APRN-C 03/11/17 [Diabetic Supplies] No Conflict Check, 1 [facility] 2-3XD, #300 EACH Prov:SANTOS HAMLIN APRN [employer]-C 08/27/16 Reported Medications Insulin NPH Hum/Reg Insulin Hm (Humulin 70-30 Vial) 100 Unit/Ml (70-30) Vial, 50 SC BID 10/22/17 Gabapentin (GABAPENTIN) 300 Mg Capsule, 300 MG PO DIRECTED, CAPSULE AM and 1500 10/22/17 Oxybutynin Chloride (DITROPAN XL) 10 Mg Tab.er.24, 10 MG PO QDAY, TAB 07/11/17 Potassium Chloride (KLOR-CON M10) 10 Meq Tab.er.prt, 10 MEQ PO QDAY 07/01/17 Nitroglycerin (NITROGLYCERIN) 0.4 Mg Tab.subl, 0.4 MG SL Q5MIN Y for CHEST PAIN 12/09/16 Ipratropium/Albuterol Sulfate (IPRAT-ALBUT 0.5-3(2.5) MG/3 ML) 3 Ml Ampul.neb, 1 VIAL IH Q6H Y for SHORTNESS OF BREATH 12/09/16 Carboxymethylcellulose Sodium (LUBRICANT EYE DROPS) 1 Each Droperette, 1 DROP OP Q4H 12/09/16 Ranitidine Hcl (RANITIDINE HCL) 150 Mg Capsule, 1 CAP PO QDAY, CAPSULE 12/09/16 Vit C/E/Zn/Coppr/Lutein/Zeaxan (Preservision Areds 2 Softgel) 1 Each Capsule, 1 CAP PO BID 12/09/16 Calcium Carb & Cit/Vitamin D3 (CALCIUM + D3 ER TABLET) 1 Each Tablet.er, 1 EACH PO QDAY 12/09/16 Aspirin (ASPIRIN) 81 Mg Tab.chew, 1 TAB PO QDAY, TAB.CHEW 06/02/15 Oxygen (OXYGEN) 2 L Inha, 2 L INH CONTINUOUS, L 02/13/15 Docusate Sodium (Colace 100 Mg) 100 Mg Cap, 1 CAP PO BID, 0 Refills 03/31/12 Discontinued Scripts Insulin NPH Hum/Reg Insulin Hm (Humulin 70-30 Vial) 100 Unit/Ml (70-30) Vial, 65 UNITS SUBQ BID, #4 VIAL 5 Refills Sliding Scale Prov:SANTOS HAMLIN APRN 07/25/17 Diet: Diabetic Activity: As Tolerated Copies to: SANTOS HAMLIN APRN Venous Thromboembolism Antithrombotics Is Pt On Any Antithrombotics?: Yes JENNY ALFONSO DO Oct 24, 2017 10:04
== END 2017-10-24 09:57 | disposition home or self-care (01) ==
LOC: ER 12:08 → INTOOBSV 15:40 → MED 15:40
PROVIDERS: ADMIT Family Medicine; ATTEND Family Medicine
DX: N30.01 Acute cystitis with hematuria (principal); L03.311 Cellulitis of abdominal wall; R50.9 Fever, unspecified; L30.9 Dermatitis, unspecified; I25.10 Atherosclerotic heart disease of native coronary artery without angina pectoris; I10 Essential (primary) hypertension; E11.22 Type 2 diabetes mellitus with diabetic chronic kidney disease; I12.9 Hypertensive chronic kidney disease with stage 1 through stage 4 chronic kidney disease, or unspecified chronic kidney disease; N18.3 Chronic kidney disease, stage 3 (moderate); E66.9 Obesity, unspecified; Z68.30 Body mass index [BMI] 30.0-30.9, adult; N20.0 Calculus of kidney; M1A.9XX0 Chronic gout, unspecified, without tophus (tophi); E11.40 Type 2 diabetes mellitus with diabetic neuropathy, unspecified; Z79.4 Long term (current) use of insulin; J44.9 Chronic obstructive pulmonary disease, unspecified; N39.0 Urinary tract infection, site not specified; J84.9 Interstitial pulmonary disease, unspecified; R06.02 Shortness of breath
CPT/HCPCS: 36415; 36416; 71045; 71046; 74176; 81001; 82948; 83880; 85025; 85651; 86140; 86635; 87040; 87070; 87077; 87088; 87186; 87205; 87502; 93306; 94640; 96372; 99285; A9270; G0378; J0131; J1815; J1940; J1956; J3370; J7030; J7050; J7613; J7620; 82040; 82247; 82310; 82374; 82435; 82565; 82947; 84075; 84132; 84155; 84295; 84450; 84460; 84520; Q9967

== ENCOUNTER → 2017-10-21 | Outpatient (CLI) | payer MEDICARE, MEDICAID ==
[~2017-10-21] MED LIST: ACE325 PO; ALLO-2 PO; AMIO100T PO; AMIO200T47 PO; AMIO200T51 PO; AMLO-96 PO; AMLO-99 PO; ANTIBIOTICS; APIX5TAB PO; ASP325 PO; ASPE325 PO; ASPI81TA15 PO; ASPI81TA94 PO; ATOR40TA69 PO; CAL500 PO; CALC1TAB32 PO; CARB1DRO20 OP; CARV12.578 PO; CEFU250T67 PO; CEP500 PO; CEPH500C24 PO; CIP500 PO; CIPR-214 PO; CIPR250S2 PO; CLON-327 PO; CLOP75TA43 PO; DOC100 PO; DOXY-1 PO; DOXY-179 PO; DOXY-181 PO; DOXY50TA7 PO; Diabetic Supplies MC; FAM20 PO; FAMO20TA28 PO; FEBU40TA2 PO; FLU150 PO; FLUC100T39 PO; FLUC150T40 PO; FLUC200T56 PO; FURO-45 PO; FURO-47 PO; GABA-503 PO; GABA-549 PO; HALO50CR TP; HUM100VI15 SQ; HUM100VI2 SC; HUM100VI2 SUBQ; HUM7030I SC; HYDR-385 PO; HYDR-4308 PO; IBU600 PO; IBUP600T22 PO; INDO-1 PO; INDO25OR3 PO; IPRA3AMP21 IH; LEVO-85 PO; LEVO250T37 PO; LEVO500T83 PO; LEVO750T44 PO; LIDO700A19 TOP; LISI-362 PO; LISI5TAB GT; LOR5 PO; LOR5/325 PO; MECL25TA9 PO; MEPE50TA30 PO; MORP-1 PO; MULT-1203 PO; MULT1CAP41 PO; NIT4 SL; NITR-105 PO; NITR0.4T3 SL; OFLO5DRO45 OT; OTC ACID REDUCER PO; OXYB10TA21 PO; OXYC-865 PO; OXYC1TAB54 PO; OXYGEN; OXYGENHOME INH; PHENA200 PO; PNEI IJ; PNEU0.5D3 IM; POTA-30 PO; POTA20PA10 PO; POTA20TA94 PO; POTC540 PO; PRED-1 PO; PROM-110 PO; RANI-318 PO; RANI-324 PO; RANI150C17 PO; RIVA15TA PO; RIVA20TA PO; SIMV5TAB60 PO; SULF-198 PO; TRIA15CR40 TP; VIT1CAPS9 PO; WHEE1EAC19 MC; [UNRECOGNIZED DRUG - CODE] PO; [UNRECOGNIZED DRUG - CODE] PO; [UNRECOGNIZED DRUG - CODE] PO; [UNRECOGNIZED DRUG - REMARK]
[2017-10-22 10:24] VITALS: BMI 36.1
== END ==
LOC: AMB 11:42
PROVIDERS: ATTEND Nurse Practitioner
DX: R53.1 Weakness (principal); R41.82 Altered mental status, unspecified; R50.9 Fever, unspecified
CPT/HCPCS: A0425; A0427

== ENCOUNTER → 2017-11-02 | Outpatient (CLI) | payer MEDICARE, MEDICAID ==
[2017-10-22 10:24] VITALS: BMI 36.1
[~2017-11-02] MED LIST changes: +APIX5TAB PO; +HUM100VI2 SC; +LEVO500T83 PO
[2017-11-02 10:22] LABS: PLATELET COUNT, AUTOMATED 122 K/uL (150-450)
--- NOTE | 2017-11-02 11:32 | RADIOLOGY IMAGING REPORT ---
FACILITY: [facility] [place] PATIENT NAME: Eugenia Rushing : 1945 MR: [id number] V: [id number] EXAM DATE: ORDERING PHYSICIAN: SANTOS HAMLIN TECHNOLOGIST: Location[place] [facility] [place] Patient: Eugenia Rushing : 1945 Visit/Account:[id number] Date of Sevice: 11/02/2017 Exam type: CHEST PA AND LAT History: Follow-up pneumonia, shortness of breath and coughing Comparison: October 22, 2017. Findings: Mildly prominent bronchovascular markings lower lung young appear some are to the prior study. No n ew areas of consolidation identified. There is no evidence of pleural effusions or overt pulmonary e srini. The cardiac silhouette is mildly enlarged. There is a dual lead cardiac pacemaker/AICD device and prosthetic cardiac valve. IMPRESSION: 1. Mildly prominent bronchial vascular markings in the lower lung young appear similar when compare d the prior study with no new areas of pulmonary consolidation seen Report Dictated By: Negra Mike MD at 11/02/2017 11:26 AM Report E-Signed By: Negra Mike MD at 11/02/2017 11:28 AM WSN:[id number]
== END ==
LOC: RAD 09:59
PROVIDERS: ATTEND Nurse Practitioner Family
DX: R91.8 Other nonspecific abnormal finding of lung field (principal); E87.6 Hypokalemia
CPT/HCPCS: 36415; 71046; 82310; 82374; 82435; 82565; 82947; 84132; 84295; 84520; 85025

== ENCOUNTER 2017-11-21 11:23 | Emergency (ER) | payer MEDICARE, MEDICAID ==
[2017-10-22 10:24] VITALS: Ht 160 cm; Wt 92.6 kg
[~2017-11-21] VITALS: Ht 160 cm; Wt 92.6 kg
--- NOTE | 2017-11-21 11:32 | ER Report ---
History and Physical Time Seen By MD: 11:32 (ARTEM MUNOZ [facility]) HPI/ROS CHIEF COMPLAINT: Cough HISTORY OF PRESENT ILLNESS: This is a 72-year-old female who presents to the emergency department for a cough. Patient states that about 2 days ago she developed a cough had some mild achiness, and has been very tired. Patient states that she's also had some increased oxygen demand she normally wears 2 L of oxygen continuous she's increase that to 3 L of oxygen continuous. Patient also states that she's had some loose stools over the last 2 days as well. Patient denies dysuria, chest pain, shortness of breath, headaches, or a sore throat. Patient is accompanied by her daughter. REVIEW OF SYSTEMS: Constitutional: No fever, no chills. Eyes: No discharge. ENT: No sore throat. Cardiovascular: No chest pain, no palpitations. Respiratory: As above. Gastrointestinal: As above. Genitourinary: No hematuria. Musculoskeletal: As above. Skin: No rashes. Neurological: No headache. (ARTEM MUNOZ [facility]) Allergies: Coded Allergies: Penicillins (Verified Allergy, Intermediate, HIVES, 11/21/17) codeine (Verified Allergy, Intermediate, HIVES, 11/21/17) lisinopril (Verified Allergy, Intermediate, ITCHING, RASH, 11/21/17) Iodinated Contrast- Oral and IV Dye (Verified Allergy, Unknown, 11/21/17) fluconazole (Verified Adverse Reaction, Intermediate, DIARRHEA, 11/21/17) hydromorphone HCl (Verified Adverse Reaction, Intermediate, NAUSEA/ VOMITING. "HEAD SPINNING", 11/21/17) Home Meds Active Scripts Oseltamivir Phosphate (TAMIFLU) 75 Mg Cap, 75 MG PO BID, #10 CAP Prov:ARTEM MUNOZ [facility] 11/21/17 Clonidine Hcl (CLONIDINE HCL) 0.1 Mg Tablet, 1 TAB PO BID, #180 TAB 0 Refills Prov:SANTOS HAMLIN APRNP-C 10/13/17 Allopurinol (Allopurinol) 300 Mg Tablet, 1 TAB PO QDAY, #90 TAB 2 Refills Prov:SANTOS HAMLIN APRNP-C 10/13/17 Gabapentin (GABAPENTIN) 600 Mg Tablet, 1 TAB PO QHS, #90 TAB 2 Refills Prov:SANTOS HAMLIN APRN-C 09/27/17 Lidocaine (Lidocaine) 5 % Adh..patch, 1 PATCH TOP DAILY, #30 PATCH [address] for 12 hours then remove and leave off for 12 hours prior to replacing with a new patch Prov:SANTOS HAMLIN APRN-C 09/12/17 Atorvastatin Calcium (ATORVASTATIN CALCIUM) 40 Mg Tablet, 1 TAB PO QDAY, #90 TAB 2 Refills Prov:SANTOS HAMLIN APRN-C 08/12/17 Furosemide (FUROSEMIDE) 40 Mg Tablet, 1 TAB PO BID, #180 TAB 1 Refill Prov:SANTOS HAMLIN APRN-C 07/21/17 Carvedilol (CARVEDILOL) 12.5 Mg Tablet, 1 TAB PO BID, #180 TAB 3 Refills Prov:SANTOS HAMLIN APRN-C 05/30/17 Wheelchair (WHEELCHAIR) 1 Each Each, EACH MC, #1 Prov:SANTOS HAMLIN APRN-C 04/08/17 Amlodipine Besylate (AMLODIPINE BESYLATE) 10 Mg Tablet, 1 TAB PO QDAY, #90 TAB 3 Refills Prov:SANTOS HAMLIN APRNP-C 03/11/17 [Diabetic Supplies] No Conflict Check, 1 [facility] 2-3XD, #300 EACH Prov:SANTOS HAMLIN APRN-C 08/27/16 Reported Medications Apixaban (ELIQUIS) 5 Mg Tablet, 5 MG PO BID 11/01/17 Insulin NPH Hum/Reg Insulin Hm (Humulin 70-30 Vial) 100 Unit/Ml (70-30) Vial, 50 SC BID 10/22/17 Gabapentin (GABAPENTIN) 300 Mg Capsule, 300 MG PO DIRECTED, CAPSULE AM and 1500 10/22/17 Oxybutynin Chloride (DITROPAN XL) 10 Mg Tab.er.24, 10 MG PO QDAY, TAB 07/11/17 Potassium Chloride (KLOR-CON M10) 10 Meq Tab.er.prt, 10 MEQ PO QDAY 07/01/17 Nitroglycerin (NITROGLYCERIN) 0.4 Mg Tab.subl, 0.4 MG SL Q5MIN Y for CHEST PAIN 12/09/16 Ipratropium/Albuterol Sulfate (IPRAT-ALBUT 0.5-3(2.5) MG/3 ML) 3 Ml Ampul.neb, 1 VIAL IH Q6H Y for SHORTNESS OF BREATH 12/09/16 Carboxymethylcellulose Sodium (LUBRICANT EYE DROPS) 1 Each Droperette, 1 DROP OP Q4H 12/09/16 Ranitidine Hcl (RANITIDINE HCL) 150 Mg Capsule, 1 CAP PO QDAY, CAPSULE 12/09/16 Vit C/E/Zn/Coppr/Lutein/Zeaxan (Preservision Areds 2 Softgel) 1 Each Capsule, 1 CAP PO BID 12/09/16 Calcium Carb & Cit/Vitamin D3 (CALCIUM + D3 ER TABLET) 1 Each Tablet.er, 1 EACH PO QDAY 12/09/16 Aspirin (ASPIRIN) 81 Mg Tab.chew, 1 TAB PO QDAY, TAB.CHEW 06/02/15 Oxygen (OXYGEN) 2 L Inha, 2 L INH CONTINUOUS, L 02/13/15 Docusate Sodium (Colace 100 Mg) 100 Mg Cap, 1 CAP PO BID, 0 Refills 03/31/12 Past Medical/Surgical History Patient has a past medical and surgical history of cardiac arrest in 2017, pacemaker with AICD, angina, congestive heart failure, hypertension, hypercholesterolemia, continuous use of oxygen, COPD, smoker, chronic constipation, GERD, kidney stones, menopause, arthritis, chronic back pain, upper dentures, wears glasses, macular degeneration, insulin-dependent diabetic , skin cancer, abdominal hernia repair, cholecystectomy, appendectomy, tonsillectomy, bilateral cataract surgery, skin cancer removal from lip. (ARTEM MUNOZ-CESAR) Reviewed Nurses Notes: Yes (ARTEM MUNOZ-CESAR) Hx Smoking: Yes ("SMOKED A LONG TIME". "I STARTED VERY YOUNG AND QUIT AT AGE 60 ) Smoking Status: Former Smoker Exposure to Second Hand Smoke?: No Hx Substance Use Disorder: No Hx Alcohol Use: No (ARTEM MUNOZ-BC) Constitutional Vital Sign - Last 24 Hours 11/21/17 11/21/17 11/21/17 11/21/17 11:31 11:31 11:52 11:52 Temp 98.5 Pulse 78 74 Resp 18 18 B/P (MAP) 126/61 Pulse Ox 97 99 O2 Delivery Nasal Cannula Nasal Cannula O2 Flow Rate 3.0 3.0 11/21/17 11/21/17 11:58 11:58 Pulse 78 Resp 18 Pulse Ox 95 O2 Delivery Nasal Cannula O2 Flow Rate 2.0 (EZEQUIEL BILL MD) Physical Exam General Appearance: The patient is alert, has no immediate need for airway protection and no signs of toxicity, smiling and interacting appropriately. Eyes: Pupils equal and round no pallor or injection. ENT, Mouth: Mucous membranes are moist, mild erythema to the posterior oropharynx. Respiratory: There are no retractions, lungs are diminished throughout, expiratory wheezes throughout. Cardiovascular: Distant, regular rate and rhythm. Gastrointestinal: Abdomen is soft and non tender, no masses, bowel sounds normal. Neurological: Alert and oriented 4. Moving all extremities. Following all commands. No focal neuro deficits. Cranial nerves II through XII intact and equal. Skin: Warm and dry, no rashes. Musculoskeletal: Neck is supple non tender. Extremities are nontender, nonswollen and have full range of motion. DIFFERENTIAL DIAGNOSIS: After history and physical exam differential diagnosis was considered for shortness of breath including but not limited to pulmonary infectious process, COPD, asthma, pulmonary embolus and congestive heart failure , influenza. (ARTEM MUNOZ [facility]) Medical Decision Making Data Points Result Diagram: 11/21/17 1134 11/21/17 1134 Laboratory Hematology Test 11/21/17 11:34 Red Blood Count 3.45 M/uL (4.17-5.56) Mean Corpuscular Volume 95.6 fL (80.0-96.0) Mean Corpuscular Hemoglobin 31.9 pg (26.0-33.0) Mean Corpuscular Hemoglobin Concent 33.4 g/dL (32.0-36.0) Red Cell Distribution Width 15.4 % (11.5-14.5) Mean Platelet Volume 7.6 fL (7.2-11.1) Neutrophils (%) (Auto) 64.4 % (39.4-72.5) Lymphocytes (%) (Auto) 16.7 % (17.6-49.6) Monocytes (%) (Auto) 14.8 % (4.1-12.4) Eosinophils (%) (Auto) 3.6 % (0.4-6.7) Basophils (%) (Auto) 0.5 % (0.3-1.4) Nucleated RBC Relative Count (auto) 0.1 /100WBC Neutrophils # (Auto) 3.4 K/uL (2.0-7.4) Lymphocytes # (Auto) 0.9 K/uL (1.3-3.6) Monocytes # (Auto) 0.8 K/uL (0.3-1.0) Eosinophils # (Auto) 0.2 K/uL (0.0-0.5) Basophils # (Auto) 0.0 K/uL (0.0-0.1) Nucleated RBC Absolute Count (auto) 0.00 K/uL Sodium Level 135 mmol/L (137-145) Potassium Level 4.3 mmol/L (3.5-5.0) Chloride Level 94 mmol/L (98-107) Carbon Dioxide Level 29 mmol/L (22-31) Blood Urea Nitrogen 45 mg/dl (7-18) Creatinine 1.30 mg/dl (0.52-1.04) Glomerular Filtration Rate Calc 40.0 Random Glucose 387 mg/dl (75-110) Calcium Level 8.9 mg/dl (8.4-10.2) Total Bilirubin 0.5 mg/dl (0.2-1.3) Aspartate Amino Transf (AST/SGOT) 27 U/L (0-35) Alanine Aminotransferase (ALT/SGPT) 32 U/L (0-56) Alkaline Phosphatase 79 U/L (0-126) B-Type Natriuretic Peptide 269 pg/ml (0-100) Total Protein 6.3 gm/dl (6.3-8.2) Albumin 3.5 g/dl (3.5-5.0) Influenza Virus Type A (PCR) Positive (NEGATIVE) Influenza Virus Type B (PCR) Negative (NEGATIVE) Chemistry Test 11/21/17 11:34 White Blood Count 5.2 k/uL (4.5-11.0) Red Blood Count 3.45 M/uL (4.17-5.56) Hemoglobin 11.0 g/dL (12.0-16.0) Hematocrit 33.0 % (34.0-47.0) Mean Corpuscular Volume 95.6 fL (80.0-96.0) Mean Corpuscular Hemoglobin 31.9 pg (26.0-33.0) Mean Corpuscular Hemoglobin Concent 33.4 g/dL (32.0-36.0) Red Cell Distribution Width 15.4 % (11.5-14.5) Platelet Count 106 K/uL (150-450) Mean Platelet Volume 7.6 fL (7.2-11.1) Neutrophils (%) (Auto) 64.4 % (39.4-72.5) Lymphocytes (%) (Auto) 16.7 % (17.6-49.6) Monocytes (%) (Auto) 14.8 % (4.1-12.4) Eosinophils (%) (Auto) 3.6 % (0.4-6.7) Basophils (%) (Auto) 0.5 % (0.3-1.4) Nucleated RBC Relative Count (auto) 0.1 /100WBC Neutrophils # (Auto) 3.4 K/uL (2.0-7.4) Lymphocytes # (Auto) 0.9 K/uL (1.3-3.6) Monocytes # (Auto) 0.8 K/uL (0.3-1.0) Eosinophils # (Auto) 0.2 K/uL (0.0-0.5) Basophils # (Auto) 0.0 K/uL (0.0-0.1) Nucleated RBC Absolute Count (auto) 0.00 K/uL Glomerular Filtration Rate Calc 40.0 Calcium Level 8.9 mg/dl (8.4-10.2) Total Bilirubin 0.5 mg/dl (0.2-1.3) Aspartate Amino Transf (AST/SGOT) 27 U/L (0-35) Alanine Aminotransferase (ALT/SGPT) 32 U/L (0-56) Alkaline Phosphatase 79 U/L (0-126) B-Type Natriuretic Peptide 269 pg/ml (0-100) Total Protein 6.3 gm/dl (6.3-8.2) Albumin 3.5 g/dl (3.5-5.0) Influenza Virus Type A (PCR) Positive (NEGATIVE) Influenza Virus Type B (PCR) Negative (NEGATIVE) ([facility] SERVICESEZEQUIEL MD) EKG/Imaging Imaging PATIENT NAME: Eugenia Rushing : 1945 MR: [id number] V: [id number] EXAM DATE: ORDERING PHYSICIAN: ARTEM MUNOZ TECHNOLOGIST: Location: [facility] Patient: Eugenia Rushing : 1945 Visit/Account:[id number] Date of Sevice: 11/21/2017 EXAMINATION: Chest radiographs 2 views HISTORY: Productive cough, shortness of breath. History of pneumonia. COMPARISON: 11/02/2017. FINDINGS: PA and lateral views of the chest are submitted. Lines/tubes: Aortic valve replacement. Left subclavian approach AICD/pacer with lead tips in the plane of the right atrium and right ventricle. Lungs/pleura: No focal consolidation or pleural effusion. Heart: Stable heart size. Mediastinum: Calcified plaque of the aortic arch. Stable mediastinal contours. Bony structures/body wall: Multilevel degenerative changes in the spine. IMPRESSION: No radiographic evidence of acute cardiopulmonary disease. Report Dictated By: Martinez Ziegler MD at 11/21/2017 12:27 PM Report E-Signed By: Martinez Ziegler MD at 11/21/2017 12:30 PM WSN:[id number] (ARTEM MUNOZ [employer]-[facility]) ED Course/Re-evaluation Clinical Indication for ER IV: IV Access ED Course The patient was admitted to a room. A history of disc were obtained. Differential diagnoses were considered. An IV was started. A CBC, CMPAnd BNP were obtained. CBC unremarkable, similar to her previous studies. In the history unremarkable except for BUN of 45 creatinine 1.30, random glucose 387, BNP 269. The BUN and creatinine are similar to her previous studies the BNP is within normal limits from her previous studies. Patient was positive for influenza A. Negative two-view chest x-ray. I did review these results with the patient and her niece who is at the bedside. I did tell him that since she was positive for influenza go ahead and start her on Tamiflu. She was concerned about her family and I suggested that she self quarantine and if her family members had any symptoms to follow-up with her primary care providers. A prescription for Tamiflu sent patient's pharmacy. The patient was also encouraged to follow up with her primary care provider in the next 3-5 days for reevaluation. I also encouraged patient to return to the emergency department for any other concerns or worsening symptoms she may have. Patient and her niece had no other questions or concerns or discharged home. Decision to Disposition Date: Nov 21, 2017 Decision to Disposition Time: 13:11 (ARTEM MUNOZP-BC) Depart Departure Latest Vital Signs Vital Signs Date Time Temp Pulse Resp B/P (MAP) Pulse Ox O2 Delivery O2 Flow Rate FiO2 11/21/17 11:58 95 Nasal Cannula 2.0 11/21/17 11:58 78 18 11/21/17 11:31 98.5 126/61 (EZEQUIEL BILL MD) Impression: Primary Impression: Influenza A Condition: Improved Disposition: HOME OR SELF-CARE Referrals: SANTOS HAMLIN APRN-C (PCP) New Scripts Oseltamivir Phosphate (TAMIFLU) 75 Mg Cap 75 MG PO BID, #10 CAP Prov: ARTEM MUNOZ 11/21/17 Patient Instructions: Influenza (ED), Influenza Vaccine (ED) Additional Instructions: Drink plenty of fluids. Get plenty of rest. Follow-up with your primary care provider in 2-5 days. Take ibuprofen or Tylenol for symptom relief. Take the medication as prescribed. May return to the ED for worsening symptoms or any other concerns. EXTENSION SUPERVISOR/PA consult with MD: Verbally (EZEQUIEL BILL MD) ARTEM MUNOZ-BC Nov 21, 2017 11:32 EZEQUIEL BILL MD Nov 21, 2017 13:05
[2017-11-21] MEDS ORDERED: ALBUTEROL/IPRATROPIUM 3 ML NEB NEB ONE (11:45)
[2017-11-21 11:59] LABS: PLATELET COUNT, AUTOMATED 106 K/uL (150-450)
--- NOTE | 2017-11-21 12:33 | RADIOLOGY IMAGING REPORT ---
FACILITY: [facility] [place] PATIENT NAME: Eugenia Rushing : 1945 MR: [id number] V: [id number] EXAM DATE: ORDERING PHYSICIAN: ARTEM MUNOZ TECHNOLOGIST: Location[place] [facility] [place] Patient: Eugenia Rushing : 1945 Visit/Account:[id number] Date of Sevice: 11/21/2017 EXAMINATION: Chest radiographs 2 views HISTORY: Productive cough, shortness of breath. History of pneumonia. COMPARISON: 11/02/2017. FINDINGS: PA and lateral views of the chest are submitted. Lines/tubes: Aortic valve replacement. Left subclavian approach AICD/pacer with lead tips in the alvarado ne of the right atrium and right ventricle. Lungs/pleura: No focal consolidation or pleural effusion. Heart: Stable heart size. Mediastinum: Calcified plaque of the aortic arch. Stable mediastinal contours. Bony structures/body wall: Multilevel degenerative changes in the spine. IMPRESSION: No radiographic evidence of acute cardiopulmonary disease. Report Dictated By: Martinez Ziegler MD at 11/21/2017 12:27 PM Report E-Signed By: Martinez Ziegler MD at 11/21/2017 12:30 PM WSN:[id number]
[2017-11-21] MEDS ORDERED: OSE75 PO (13:12)
[2017-11-21 13:27] VITALS: BP 123/60
== END 2017-11-21 13:30 | disposition home or self-care (01) ==
LOC: ER 11:33
DX: J09.X2 Influenza due to identified novel influenza A virus with other respiratory manifestations (principal); Z87.01 Personal history of pneumonia (recurrent); Z87.891 Personal history of nicotine dependence; R06.02 Shortness of breath
CPT/HCPCS: 71046; 83880; 85025; 87502; 94640; 99284; J7620; 82040; 82247; 82310; 82374; 82435; 82565; 82947; 84075; 84132; 84155; 84295; 84450; 84460; 84520

== ENCOUNTER → 2017-12-06 | Outpatient (CLI) | payer MEDICARE, MEDICAID ==
[2017-10-22 10:24] VITALS: BMI 36.1
[~2017-12-06] MED LIST changes: +OSE75 PO
== END ==
LOC: LAB 08:55
PROVIDERS: ATTEND Nurse Practitioner Family
DX: E11.9 Type 2 diabetes mellitus without complications (principal)
CPT/HCPCS: 36415; 82040; 82247; 82310; 82374; 82435; 82565; 82947; 83036; 84075; 84132; 84155; 84295; 84450; 84460; 84520

== ENCOUNTER → 2018-02-27 | Outpatient (REF) | payer MEDICARE, MEDICAID ==
[2017-10-22 10:24] VITALS: BMI 36.1
[~2018-02-27] MED LIST changes: +BENZ200C15 PO; +CIPDEXPT EACH EAR; +CIPHCO EACH EAR; +CLOP75TA PO; +CORED EACH EAR; +PREG50CA48 PO; -RANI-324 PO; +RANI-366 PO
== END ==
LOC: ZZSENDIN 12:16
PROVIDERS: ATTEND Nurse Practitioner Family
DX: E11.9 Type 2 diabetes mellitus without complications (principal); D64.9 Anemia, unspecified; N18.9 Chronic kidney disease, unspecified
CPT/HCPCS: 82040; 82247; 82310; 82374; 82435; 82565; 82947; 83036; 84075; 84132; 84155; 84295; 84450; 84460; 84520; 85027

== ENCOUNTER → 2018-03-01 | Outpatient (CLI) | payer MEDICARE, MEDICAID ==
[2017-10-22 10:24] VITALS: BMI 36.1
--- NOTE | 2018-03-01 14:40 | RADIOLOGY IMAGING REPORT ---
FACILITY: [facility] - [place], [place] PATIENT NAME: Eugenia Rushing : 1945 MR: [id number] V: [id number] EXAM DATE: ORDERING PHYSICIAN: ANGY LOWE TECHNOLOGIST: Location: [facility] - [place] Patient: Eugenia Rushing : 1945 Visit/Account:[id number] Date of Sevice: 03/01/2018 ABDOMEN PELVIS ESWL CYSTO W/O HISTORY: History of kidney stones TECHNIQUE: Axial images acquired through the abdomen/pelvis. Coronal and sagittal reformatting also performed. No IV contrast administered. Dose Lowering Technique One of the following dose optimization techniques was utilized in the performance of this exam: Autom ated exposure control; adjustment of the mA and/or kV according to the patient's size; or use of an i terative reconstruction technique. Specific details can be referenced in the facility's radiology C T exam operational policy. COMPARISON: October 21, 2017 FINDINGS: Visualized lung bases: Negative. Hepatobiliary: Postsurgical changes from a cholecystectomy, bile duct is dilated up to 1.3 cm which could be related to the postsurgical changes Spleen: Small calcifications within the spleen stable when compared the prior study Adrenals: Negative. Pancreas: Negative. Kidneys ureters and bladder: Bilateral hyper and hypodense renal masses appear unchanged. There are vascular calcifications in both kidneys. Nonobstructing calculi also seen in the left renal collecti ng system with multiple stones ranging in size from 2 mm to 7 mm. No evidence of hydronephrosis or h ydroureter Genitalia: Multiple calcifications seen within the uterus GI: There is diverticulosis left-sided colon although no CT evidence of acute diverticulitis Vessels/spaces/nodes: Extensive vascular calcifications are seen throughout the abdomen and pelvis. Bones/soft tissues: Previously noted fluid collection along the anterior right side of the lower abd ominal wall appears slightly less prominent now measuring approximately 1.45 cm in thickness as oppos ed to 2.1 cm previously. Small elliptical hypodense collection in the right side of the rectus sheat h in the mid abdomen also remains unchanged. . Extensive spondylotic changes in the thoracolumbar spine again seen. Fusion of L2-3 vertebral bodies also again noted. Hyperdense material in the subcutaneous soft tissues just posterior to L1 also ap pears some are to the prior study there are sclerotic changes of the SI joints bilaterally. Additional findings: None pertinent. IMPRESSION: Bilateral hyperinflated hypodense renal masses appear unchanged Nonobstructing calculi in the left renal collecting system again noted with no evidence of hydronephr osis Diverticulosis left-sided colon Postsurgical changes from a cholecystectomy Previous seen noted fluid collections along the anterior abdominal wall inferiorly of appears slightl y decreased.. The small ovoid collection in the right side of the rectus sheath in the midabdomen un changed Extensive spondylotic changes of the thoracolumbar spine. Report Dictated By: Negra Mike MD at 03/01/2018 2:04 PM Report E-Signed By: Negra Mike MD at 03/01/2018 2:36 PM WSN:[id number]
== END ==
LOC: CT 07:33
PROVIDERS: ATTEND Urology
DX: N28.89 Other specified disorders of kidney and ureter (principal); N20.0 Calculus of kidney; K57.30 Diverticulosis of large intestine without perforation or abscess without bleeding; Z90.49 Acquired absence of other specified parts of digestive tract; M47.895 Other spondylosis, thoracolumbar region
CPT/HCPCS: 74176

== ENCOUNTER → 2018-03-21 | Outpatient (CLI) | payer MEDICARE, MEDICAID ==
[2017-10-22 10:24] VITALS: BMI 36.1
[~2018-03-21] MED LIST changes: +CLO10 PO
== END ==
LOC: LAB 14:50
PROVIDERS: ATTEND Nurse Practitioner Family
DX: N18.9 Chronic kidney disease, unspecified (principal)
CPT/HCPCS: 36415; 82310; 82374; 82435; 82565; 82947; 84132; 84295; 84520

== ENCOUNTER 2018-03-31 09:00 | Outpatient (RCR) | payer MEDICARE, MEDICAID ==
[2017-10-22 10:24] VITALS: BMI 36.1
[2018-01-30 15:49] VITALS: BP 130/66
[2018-01-30 15:50] VITALS: BP 126/66
--- NOTE | 2018-01-30 16:23 | CARDIAC REHAB PLAN OF CARE ---
Physician: MD Ileana; OTILIA [place] Patient is being seen: Mary Bhakta Medical Diagnosis: Stent x 3; CHF; COPD Treatment Diagnosis: 01/26/18 Date of Initial Evaluation: 01/30/18 INTERVENTIONS: SHORT TERM GOALS Short Term Goals Due Date: 03/01/18 Short Term Goals: Goals to accomplish over the next month include increasing overall exercise duration and tolerance. Our aim will be to sustain exercise continuously for a total of 20 minutes on the NuStep, with an overall total of 40 minutes accomplished per session. Another goal will be for the patient to be able to walk a total of 3 laps around the track without having to take a break. During exercise we will encourage maintaining a HR between 90-100 bpm, with BP remaining below 180/90mmHg and SPO2 remaining above 88%. Short Term Goals Met: Short Term Goals Not Met Due To: PICTURE FRAMER GOALS Intermediate Goal Due Date: 04/01/18 Grey Percher Goals: Throughout this program intermediate accountant goals include increasing exercise tolerance in order to achieve the recommended duration of exercise ( e.g. 150min/week) which would equal a total of 50 minutes/exercise session. During exercise our goal will be to maintain HR ranges above 90bpm, with a goal of achieving HR targets above 110 at the end of the program. Lastly, another goal will be to improve walking capabilities by improving overall stamina, flexibility in the lower limbs, and overall gait to improve comfort level with walking. Intermediate Goals Met: Grey Percher Goals Not Met Due To: PATIENT'S GOALS Patient Goals Due Date: 03/01/18 Patient Goals: Patient goals through this program include overall quality of life and lose weight to increase comfort levels with daily living. Currently she weighs 192lbs and she would like to ideally weigh 170lbs. More so, she wants to improve her quality of life--to feel more ambitious and improve her overall confidence with physical activity and daily activities. Patient Goals Met: Patient Goals Not Met Due To: Cardiac Rehabilitation Plan of Care Comment: To help accomplish the goals listed above, as a cardiac team we will monitor and progress her exercise at the individual level. Before, during, and after exercise we will monitor HR, BP , SPO2, and ECG for any irregularities. We will also use this information obtained during exercise to continuously update her exercise prescription to progress as the program continues. We will also provide her information on nutrition to help facilitate her healthy behavior change and goal towards losing weight. Lastly, we will help provide social and moral support to help make this a happy and overall positive learning environment by encouraging curiosity and questions. [place]
[2018-02-06 13:33] VITALS: BP 124/62
[2018-02-06 13:37] VITALS: BP 104/62
[2018-02-08 12:53] VITALS: BP_SYST 104; BP_SYST 122; BP_DIAS 58; BP_DIAS 66
[2018-02-10 17:27] VITALS: BP 118/84
[2018-02-10 17:28] VITALS: BP 104/60
[2018-02-13 13:29] VITALS: BP_SYST 118; BP_SYST 132; BP_DIAS 58; BP_DIAS 80
[2018-02-15 13:17] VITALS: BP 122/64
[2018-02-15 13:18] VITALS: BP 100/58
[2018-02-17 13:42] VITALS: BP 126/68
[2018-02-17 13:43] VITALS: BP 104/58
[2018-02-20 13:00] VITALS: BP 124/72
[2018-02-20 13:01] VITALS: BP 110/54
[2018-02-22 13:25] VITALS: BP 122/70
[2018-02-22 13:26] VITALS: BP 104/58
[2018-02-27 13:03] VITALS: BP 120/74
[2018-02-27 13:05] VITALS: BP 115/60
--- NOTE | 2018-02-27 14:20 | CARDIAC REHAB PLAN OF CARE ---
Physician: OTILIA [place] Patient is being seen: LiviaJoeMary Medical Diagnosis: Stent x 3; PM Date of Initial Evaluation: 01/30/18 INTERVENTIONS: SHORT TERM GOALS Short Term Goals Due Date: 03/30/18 Short Term Goals: Goals to accomplish over the next month include increasing overall exercise duration and tolerance. Our aim will be to sustain exercise continuously for a total of 45 minutes on the NuStep, with an overall total of 50 minutes accomplished per session (assuming 5 minutes to complete laps around the track). Another goal will be for the patient to be able to walk a total of 2 laps around the track without having to take a break. During exercise we will encourage maintaining a HR between 85- 90 bpm, with BP remaining below 180/90mmHg and SPO2 remaining above 88%. Short Term Goals Met: The patient has been making gradual progression towards increasing exercise total duration. She has been achieving 35 minutes/session all performed on the NuStep. Her oxygen has remained well saturated during exercise, with no unexpected oxygen drops. Short Term Goals Not Met Due To: The patient is 5 minutes short of reaching our goal of 40 minutes total of exercise. She also does continue to perform at least 1 lap around the track when her back is feeling okay, but it is primarily pain that prevents her from attaining our goal of 3 continuous laps. She also has not been able to achieve her HR target, as her HR during exercise remains around 75-80bpm. SNF GOALS Fpc Goal Due Date: 03/30/18 Configuration Management Administrator Goals: Throughout this program geophysical drafter goals include increasing exercise tolerance in order to achieve the recommended duration of exercise ( e.g. 150min/week) which would equal a total of 50 minutes/exercise session. During exercise our goal will be to maintain HR ranges above 90bpm, with a goal of achieving HR targets above 110 at the end of the program. Lastly, another goal will be to improve walking capabilities by improving overall stamina, flexibility in the lower limbs, and overall gait to improve comfort level with walking. Configuration Management Administrator Goals Met: Fpc Goals Not Met Due To: PATIENT'S GOALS Patient Goals Due Date: 03/30/18 Patient Goals: Patient goals through this program include overall quality of life and lose weight to increase comfort levels with daily living. Currently she weighs 192lbs and she would like to ideally weigh 170lbs. More so, she wants to improve her quality of life--to feel more ambitious and improve her overall confidence with physical activity and daily activities. Patient Goals Met: The patient has feeling better when she comes to exercise, and that positive feeling staying with her when she goes home. Overall improvements thus far have been primarily subjective and psychosocial related. Patient Goals Not Met Due To: Patient has not reported any weightloss, but we will be sure to check this information upon her next visit. She has been discouraged to walk more during her leisure time due to back pain, but says the pain has been subsiding more regularly. This gives hope that we will be able to encourage more leisure time activity. Cardiac Rehabilitation Plan of Care Comment: During the next month we will encourage more ROM exercises as well as flexibility in order to help alleviate any lower back pain. We will also enourage the patient to exercise at higher exercise intensities in hopes of raising her exercising HR range to the perscriped level mentioned above. We will continue to provide information to help her make and create healthy behaviors outside of rehab. [place]
[2018-03-01 12:57] VITALS: BP 122/72
[2018-03-01 12:58] VITALS: BP 118/62
[2018-03-06 13:06] VITALS: BP 110/62
[2018-03-06 13:08] VITALS: BP 98/58
[2018-03-08 13:23] VITALS: BP 118/62
[2018-03-08 13:24] VITALS: BP 112/62
[2018-03-10 13:06] VITALS: BP_SYST 112; BP_SYST 126; BP_DIAS 58; BP_DIAS 72
[2018-03-20 13:10] VITALS: BP 104/68
[2018-03-20 13:11] VITALS: BP 114/62
[2018-03-22 17:05] VITALS: BP 120/68
[2018-03-22 17:06] VITALS: BP 112/58
[2018-03-24 10:44] VITALS: BP 114/68
[2018-03-24 10:45] VITALS: BP 114/66
[2018-03-27 10:31] VITALS: BP 116/64
[2018-03-27 10:32] VITALS: BP 118/70
--- NOTE | 2018-03-29 10:59 | CARDIAC REHAB PLAN OF CARE ---
Physician: JENNY SCHILLING MD Patient is being seen: EMANUEL ACEVES [facility] Diagnosis: STENT X3; PM Date of Initial Evaluation: 30 January 2018 Date patient was last seen: 29 March 2018 Number of treatments: 19 INTERVENTIONS: SHORT TERM GOALS Short Term Goals Due Date: 04/28/18 Short Term Goals: Goals to accomplish over the next month include increasing overall exercise intensity. Our aim will be to sustain exercise continuously for a total of 45 minutes, with a overall total of 50 minutes accomplished per session (assuming 5 minutes to complete laps around the track) . Another goal will be for the patient to be able to walk at least one lap per session around the track taking as many breaks as needed. During exercise we will encourage maintaining a HR between 85-90 bpm, with SPO2 remaining above 88%. Short Term Goals Met: Patient has made a moderate increase in overall exercise duration. She has increased her duration to 41 minutes (up from 35, but not quite to our goal of 45). She has been able to maintain our heart rate goal with an average heart rate between 79 and 90bpm. Short Term Goals Not Met Due To: The patient has failed to increase exercise intensity. She began the program at a resistance level on the NuStep of 5, but has since decreased that to level 4, with only intervals of level 5 from time to time. Her overall RPE has also failed to increase, with a regular reporting of a level 3 effort. Lastly, she has discontinued her laps around the track where she used to be doing 1 lap per session. HALFWAY GOALS Structural Steel Equipment Erector Goal Due Date: 04/28/18 Penitentiary Goals: Throughout this program tank terminal gauger goals include increasing exercise tolerance in order to achieve the recommendeed duration of exercise ( e.g. 150min/week) which would equal a total of 50 minutes/exercise session-- including time spent walking around the track to complete at least 1 lap per session. During exercise our goal will be to maintain HR ranges above 90bpm, with a goal of achieving HR targets above 100bpm at the end of the program. Lastly,we will aim toimprove walking capabilities by improving overall stamina, flexibility in the lower limbs, and overall gait to improve comfort level with walking by encouraging flexibility stretches post exercise and ROM while walking around the track Structural Steel Equipment Erector Goals Met: The patient has gradually increased her exercise duration, and is currently totaling 123 minutes/week of continuous exercise. Penitentiary Goals Not Met Due To: The patient has not been able to maintain HR ranges about 90bpm, so we will adjust our retirement goal (previously 110bpm) to now reaching at least 100bpm on average by the end of the program. Lastly, the patient has not made any strides towards increasing flexibility in the limbs to air conditioner installer helper in walking capabilities. We will move forward by trying to encourage walking around the track and lower limb flexibility exercises to help with ROM. PATIENT'S GOALS Patient Goals Due Date: 04/28/18 Patient Goals: Patient goals through this program include overall quality of life and lose weight to increase comfort levels with daily living. Currently she weighs 192lbs and she would like to ideally weigh 170lbs. More so, she wants to improve her quality of life--to feel more ambitious and improve her overall confidence with physical activity and daily activities. Patient Goals Met: None of the above listed goals have been met. Patient Goals Not Met Due To: As of recent, the patient has appeared to have made degressions in her exercise tolerance. She has not reported any weight loss and she tends to report ill-feelings in recent classes. She appears more tired and lacking ambition when attending exercise sessions. We will further investigate upon her next visit to [facility]. Cardiac Rehabilitation Plan of Care Comment: The current patient needs more individualized attention and encouragement. She needs to have more direction given to her upon entering her cardiac rehab session. From here forward our individualized attention to her will be focused on increasing her resistance level on the NuStep (aiming for level 7 by the end of the next month) and having her take at least one lap around the track during each session--if she does not want to walk one lap then she should continue on the NuStep for an additional 5 minutes (aiming towards 50 minutes of exercise per session). We will continue to monitor her for signs/symptoms of cardiac abnormalities and be sure her BP (below 180/90) and SPO2 (above 88%) remain in safe ranges. We will encourage her HR to be above 90bpm whenever possible. From an emotional and mental health standpoint we will follow up with the patient about her overall mood, energy levels, and affect. We will encourage with positive reinforcement and help provide information to both herself and her granddaughter to air conditioner installer helper in positive mental health at home. [place]
[2018-03-29 13:02] VITALS: BP 116/72
[2018-03-29 13:03] VITALS: BP 120/72
[~2018-03-31 09:00] MED LIST changes: -AMIO200T47 PO; +AMIO200T49 PO; -INDO-1 PO; +INDO-21 PO; +IPRA3AMP10 IH; -IPRA3AMP21 IH
[2018-03-31 13:41] VITALS: BP 110/60
[2018-03-31 13:42] VITALS: BP 122/68
[2018-04-20] MEDS ORDERED: FERR324T16 PO (15:51)
[2018-04-24] MEDS ORDERED: CLON-327 PO (17:09)
[2018-04-28] MEDS ORDERED: FERR325T24 PO (12:07)
[2018-04-28] MEDS ORDERED: CALC625T57 PO (19:17)
[2018-04-29] MEDS ORDERED: POTA20TA94 PO (07:10)
[2018-04-29] MEDS ORDERED: HUM100VI15 SQ (07:10)
[2018-04-29] MEDS ORDERED: CLON-327 PO (07:10)
== END 2018-04-30 ==
LOC: CARD 09:00
PROVIDERS: ATTEND Internal Medicine Cardiovascular Disease
DX: I20.9 Angina pectoris, unspecified (principal); I50.9 Heart failure, unspecified; I25.2 Old myocardial infarction; I10 Essential (primary) hypertension; M06.9 Rheumatoid arthritis, unspecified; Z95.0 Presence of cardiac pacemaker
CPT/HCPCS: 93798

== ENCOUNTER → 2018-04-20 | Outpatient (CLI) | payer MEDICARE, MEDICAID ==
[2017-10-22 10:24] VITALS: BMI 36.1
[~2018-04-20] MED LIST changes: +AMIO200T47 PO; -AMIO200T49 PO; +FERR324T16 PO; +INDO-1 PO; -INDO-21 PO; -IPRA3AMP10 IH; +IPRA3AMP21 IH
[2018-04-20 15:05] LABS: PLATELET COUNT, AUTOMATED 113 K/uL (150-450)
== END ==
LOC: LAB 14:45
PROVIDERS: ATTEND Emergency Medicine
DX: D69.6 Thrombocytopenia, unspecified (principal)
CPT/HCPCS: 36415; 82607; 82746; 83540; 83550; 85025

== ENCOUNTER → 2018-04-25 | Outpatient (REF) | payer MEDICARE, MEDICAID ==
[2017-10-22 10:24] VITALS: BMI 36.1
== END ==
LOC: ZZSENDIN 11:27
PROVIDERS: ATTEND Emergency Medicine
DX: E61.1 Iron deficiency (principal); R19.7 Diarrhea, unspecified
CPT/HCPCS: 87324; 87449; G0328; 82274

== ENCOUNTER 2018-04-28 15:30 | Inpatient (IN) | payer MEDICARE, MEDICAID ==
[~2018-04-28] VITALS: Ht 157.5 cm; Wt 95.1 kg
[~2018-04-28 15:30] MED LIST changes: -CALC625T57 PO
--- NOTE | 2018-04-28 16:02 | ER Report ---
History and Physical Time Seen By MD: 16:02 Hx. of Stated Complaint: SENT FOR CRITICALLY LOW HGB. POSITIVE OCCULT STOOL LAST WEEK. C/O ABDO PAIN WITH PALPATION, "IT FEELS TIGHT AND MISERABLE" (KALPESH PHAN MD) HPI/ROS CHIEF COMPLAINT: low blood count and abdominal pain and bloating HISTORY OF PRESENT ILLNESS: This is a 73 year old female. She has been having several weeks of abdominal symptoms. Was seen in the office by Dr. Sun on the for diarrhea. She had improvement with some Imodium and they thought that this might be gastroenteritis. They ordered stool studies, but these were not obtained until the . Stool positive for occult blood in the stool and negative for C. diff. She has had improvement of the diarrhea, but is now having abdominal bloating and pain. She denies nausea or vomiting at this time. She has urinary urgency all the time, but denies dysuria. No blood in the urine or stool noted by the patient. She does have a chronic anemia, which has been worsening over the last few months and workup for chronic anemia including iron deficiency and anemia or chronic disease. She had a repeat blood test today and showed a critically low H/H. She is always on oxygen, but has had to increase it from 2 liters to 3 liters by nasal canula. She gets extremely short of breath with even light exertion. She is also very pale. She is fatigued with very little energy as well. Has a history of chronic kidney disease. Patient is on Eliquis, Aspirin. REVIEW OF SYSTEMS: Constitutional: No fever or chills. Eyes: very poor vision chronically ENT: No sore throat. Cardiovascular: No chest pain. Respiratory: As above. Gastrointestinal: As above. Genitourinary: As above. Musculoskeletal: No musculoskeletal pain. Skin: No rashes. Neurological: No numbness or focal weakness. (KALPESH PHAN MD) Allergies: Coded Allergies: Penicillins (Verified Allergy, Intermediate, HIVES, 04/28/18) codeine (Verified Allergy, Intermediate, HIVES, 04/28/18) lisinopril (Verified Allergy, Intermediate, ITCHING, RASH, 04/28/18) Iodinated Contrast- Oral and IV Dye (Verified Allergy, Unknown, 04/28/18) fluconazole (Verified Adverse Reaction, Intermediate, DIARRHEA, 04/28/18) hydromorphone HCl (Verified Adverse Reaction, Intermediate, NAUSEA/ VOMITING. "HEAD SPINNING", 04/28/18) Home Meds Active Scripts Ferrous Sulfate (IRON) 325 Mg Tablet, 1 TAB PO BID, #60 TAB 0 Refills Prov:SANTOS HAMLIN APRNP-C 04/28/18 Pregabalin (LYRICA) 50 Mg Capsule, 1 CAP PO TID, #90 CAPSULE 5 Refills Prov:SANTOS HAMLIN APRNP-C 03/22/18 Amlodipine Besylate (AMLODIPINE BESYLATE) 10 Mg Tablet, 1 TAB PO QDAY, #90 TAB 1 Refill Prov:SANTOS HAMLIN APRN-C 03/09/18 Furosemide (FUROSEMIDE) 40 Mg Tablet, 1 TAB PO BID, #180 TAB 2 Refills Prov:SANTOS HAMLIN APRN-C 01/25/18 [Diabetic Supplies] No Conflict Check, 1 [facility] 2-3XD, #300 EACH Prov:SANTOS HAMLIN APRNP-C 12/08/17 Allopurinol (Allopurinol) 300 Mg Tablet, 1 TAB PO QDAY, #90 TAB 2 Refills Prov:SANTOS HAMLIN APRNP-C 10/13/17 Atorvastatin Calcium (ATORVASTATIN CALCIUM) 40 Mg Tablet, 1 TAB PO QDAY, #90 TAB 2 Refills Prov:SANTOS HAMLIN APRNP-C 08/12/17 Carvedilol (CARVEDILOL) 12.5 Mg Tablet, 1 TAB PO BID, #180 TAB 3 Refills Prov:SANTOS HAMLIN APRNP-C 05/30/17 Reported Medications Potassium Chloride (POTASSIUM CHLORIDE) 20 Meq Tab.er.prt, 20 MEQ PO QDAY 04/29/18 Hum Insulin Nph/Reg Insulin Hm (NOVOLIN 70-30 100 UNIT/ML VIAL) 100 Unit/1 Ml Vial, 50 UNIT SQ BID, VIAL 50 units in am, 30 units HS 04/29/18 Clonidine Hcl (CLONIDINE HCL) 0.1 Mg Tablet, 0.1 MG PO BID, TAB 0.5 tab BID 04/29/18 Calcium Polycarbophil (FIBERCON) 625 Mg Tablet, 625 MG PO 04/28/18 Clopidogrel Bisulfate (CLOPIDOGREL) 75 Mg Tablet, 1 TAB PO QDAY, TAB 02/09/18 Apixaban (ELIQUIS) 5 Mg Tablet, 5 MG PO BID 11/01/17 Nitroglycerin (NITROGLYCERIN) 0.4 Mg Tab.subl, 0.4 MG SL Q5MIN Y for CHEST PAIN 12/09/16 Ranitidine Hcl (RANITIDINE HCL) 150 Mg Capsule, 1 CAP PO QDAY, CAPSULE 12/09/16 Vit C/E/Zn/Coppr/Lutein/Zeaxan (Preservision Areds 2 Softgel) 1 Each Capsule, 1 CAP PO BID 12/09/16 Calcium Carb & Cit/Vitamin D3 (CALCIUM + D3 ER TABLET) 1 Each Tablet.er, 1 EACH PO QDAY 12/09/16 Aspirin (ASPIRIN) 81 Mg Tab.chew, 1 TAB PO QDAY, TAB.CHEW 06/02/15 Oxygen (OXYGEN) 2 L Inha, 2 L INH CONTINUOUS, L 02/13/15 Docusate Sodium (Colace 100 Mg) 100 Mg Cap, 1 CAP PO BID, 0 Refills 03/31/12 Discontinued Reported Medications Potassium Chloride (KLOR-CON M10) 10 Meq Tab.er.prt, 10 MEQ PO QDAY 07/01/17 Oxybutynin Chloride (DITROPAN XL) 10 Mg Tab.er.24, 10 MG PO QDAY, TAB 07/11/17 Carboxymethylcellulose Sodium (LUBRICANT EYE DROPS) 1 Each Droperette, 1 DROP OP Q4H 12/09/16 Discontinued Scripts Clonidine Hcl (CLONIDINE HCL) 0.1 Mg Tablet, 1 TAB PO BID, #180 TAB 1 Refill Prov:SANTOS HAMLIN APRN-C 04/24/18 Hum Insulin Nph/Reg Insulin Hm (NOVOLIN 70-30 100 UNIT/ML VIAL) 100 Unit/1 Ml Vial, 55-60 UNIT SQ BID, #3 VIAL 12 Refills 60 units every morning and 55 units every evening Prov:SANTOS HAMLIN APRNP-C 12/23/17 Ferrous Sulfate (FERROUS SULFATE) 324 Mg Tablet.dr, 324 MG PO DAILY, #90 TAB 1 Refill Prov:CHARLES SUN MD 04/20/18 Clotrimazole (CLOTRIMAZOLE) 10 Mg Troc, 1 EACH PO 5XD, #70 ALBERTINA 0 Refills Prov:SANTOS HAMLIN APRN-C 03/21/18 Ipratropium/Albuterol Sulfate (IPRAT-ALBUT 0.5-3(2.5) MG/3 ML) 3 Ml Ampul.neb, 1 VIAL IH Q6H Y for SHORTNESS OF BREATH, #30 VIAL 2 Refills Prov:SANTOS HAMLIN APRN-C 12/23/17 Lidocaine (Lidocaine) 5 % Adh..patch, 1 PATCH TOP DAILY, #30 PATCH [address] for 12 hours then remove and leave off for 12 hours prior to replacing with a new patch Prov:SANTOS HAMLIN APRN-Grace 09/12/17 Past Medical/Surgical History Insulin-dependent diabetes, hypertension, hyperlipidemia, coronary artery disease, atrial fibrillation, congestive heart failure, COPD, age 1 chronic kidney disease, history of multiple kidney stones and stents and lithotripsies, arthritis. Surgical history includes the kidney stents, cardiac stents, defibrillator, appendectomy, cholecystectomy, back surgery, cataract surgery, tonsillectomy, hernia repairs (KALPESH PHAN MD) Reviewed Nurses Notes: Yes (KALPESH PHAN MD) Hx Smoking: Yes ("SMOKED A LONG TIME". "I STARTED VERY YOUNG AND QUIT AT AGE 60 ) Smoking Status: Former Smoker Exposure to Second Hand Smoke?: No Hx Substance Use Disorder: No Hx Alcohol Use: No (KALPESH PHAN MD) Constitutional Vital Sign - Last 24 Hours 04/28/18 04/28/18 04/28/18 04/28/18 15:39 15:39 16:00 17:01 Temp 97.7 Pulse 82 71 Resp 18 B/P (MAP) 104/58 (73) 104/58 115/58 (77) 127/57 (80) Pulse Ox 94 97 O2 Delivery Room Air 04/28/18 04/28/18 04/28/18 04/28/18 17:06 17:21 17:30 17:36 Pulse 85 75 78 B/P (MAP) 117/73 (88) Pulse Ox 99 100 97 04/28/18 04/28/18 04/28/18 04/28/18 17:51 18:00 18:06 18:21 Pulse 77 75 69 B/P (MAP) 108/77 (87) Pulse Ox 98 98 100 04/28/18 04/28/18 04/28/18 04/28/18 18:30 18:36 18:51 18:56 Pulse 76 78 75 B/P (MAP) 123/71 (88) Pulse Ox 97 96 97 04/28/18 04/28/18 04/28/18 04/28/18 19:00 19:11 19:26 19:30 Pulse 77 79 B/P (MAP) 112/64 (80) ???/??? (1665) Pulse Ox 94 99 (COLLEEN BHAKTA DO) Physical Exam General Appearance: The patient is alert. No acute distress. weak and pale. Eyes: Pupils are equal, round. Has pallor, but no injection. Reactive to light. Extraocular movements are intact. ENT: Mucous membranes are dry. Normal oral mucosa. Neck: Supple and non tender. No lymphadenopathy. Respiratory: Lungs are clear to auscultation. Cardiovascular: Regular rate and rhythm. Has a 3/6 systolic murmur. Trace bilateral edema. Gastrointestinal: Abdomen is soft, diffuse discomfort with palpation, no focal pain. Distended. No rebound or guarding. Normal active bowel sounds. No costovertebral angle tenderness with percussion. Neurological: Alert and oriented x3. Poor vision, otherwise no focal changes noted. Skin: Warm and dry. No rashes. Musculoskeletal: Extremities are nontender. Full range of motion. Generalized weakness. DIFFERENTIAL DIAGNOSIS: After history and physical exam, differential diagnosis was considered for anemia, weak and short of breath, recent GI problems with guaiac positive stool, however multiple other medical problems. Suspect GI blood loss causing the worsening anemia which is also multifactorial. ([facility]) Medical Decision Making Data Points Result Diagram: 04/29/18 0533 04/29/18 0533 Laboratory Hematology Test 04/28/18 17:00 04/28/18 18:30 Urine Color Yellow Urine Clarity Slightly-cloudy Urine pH 5.0 pH (4.8-9.5) Urine Specific [place] 1.010 Urine Protein Negative mg/dL (NEGATIVE) Urine Glucose (UA) Negative mg/dL (NEGATIVE) Urine Ketones Negative mg/dL (NEGATIVE) Urine Blood Moderate (NEGATIVE) Urine Nitrite Negative (NEGATIVE) Urine Bilirubin Negative (NEGATIVE) Urine Urobilinogen Negative mg/dL (0.2-1.9) Urine Leukocyte Esterase Large (NEGATIVE) Urine RBC 27 /HPF (0-2/HPF) Urine WBC 148 /HPF (0-5/HPF) Urine WBC Clumps Mod /HPF Urine Squamous Epithelial Cells Many /LPF (</=FEW) Urine Transitional Epithelial Cells Few /LPF (NONE-FEW) Urine Bacteria Few /HPF (NONE-FEW) Urine Hyaline Casts Few /LPF (NONE-FEW) Urine Mucus None /HPF (NONE-FEW) Urine Yeast Few /HPF (NONE) Chemistry Test 04/28/18 17:00 04/28/18 18:30 Urine Color Yellow Urine Clarity Slightly-cloudy Urine pH 5.0 pH (4.8-9.5) Urine Specific [place] 1.010 Urine Protein Negative mg/dL (NEGATIVE) Urine Glucose (UA) Negative mg/dL (NEGATIVE) Urine Ketones Negative mg/dL (NEGATIVE) Urine Blood Moderate (NEGATIVE) Urine Nitrite Negative (NEGATIVE) Urine Bilirubin Negative (NEGATIVE) Urine Urobilinogen Negative mg/dL (0.2-1.9) Urine Leukocyte Esterase Large (NEGATIVE) Urine RBC 27 /HPF (0-2/HPF) Urine WBC 148 /HPF (0-5/HPF) Urine WBC Clumps Mod /HPF Urine Squamous Epithelial Cells Many /LPF (</=FEW) Urine Transitional Epithelial Cells Few /LPF (NONE-FEW) Urine Bacteria Few /HPF (NONE-FEW) Urine Hyaline Casts Few /LPF (NONE-FEW) Urine Mucus None /HPF (NONE-FEW) Urine Yeast Few /HPF (NONE) Urinalysis Test 04/28/18 17:00 Urine Color Yellow Urine Clarity Slightly-cloudy Urine pH 5.0 pH (4.8-9.5) Urine Specific [place] 1.010 Urine Protein Negative mg/dL (NEGATIVE) Urine Glucose (UA) Negative mg/dL (NEGATIVE) Urine Ketones Negative mg/dL (NEGATIVE) Urine Blood Moderate (NEGATIVE) Urine Nitrite Negative (NEGATIVE) Urine Bilirubin Negative (NEGATIVE) Urine Urobilinogen Negative mg/dL (0.2-1.9) Urine Leukocyte Esterase Large (NEGATIVE) Urine RBC 27 /HPF (0-2/HPF) Urine WBC 148 /HPF (0-5/HPF) Urine WBC Clumps Mod /HPF Urine Squamous Epithelial Cells Many /LPF (</=FEW) Urine Transitional Epithelial Cells Few /LPF (NONE-FEW) Urine Bacteria Few /HPF (NONE-FEW) Urine Hyaline Casts Few /LPF (NONE-FEW) Urine Mucus None /HPF (NONE-FEW) Urine Yeast Few /HPF (NONE) (COLLEEN BHAKTA DO) Microbiology Microbiology Date/Time Source Procedure Growth Status 04/28/18 00:00 Clean Catch Midstream Ur Urine Culture - Preliminary NO GROWTH SO FAR, SET LATE. REINCUBATED Resulted (OCLLEEN BHAKTA ) EKG/Imaging Imaging EXAMINATION: CT abdomen and pelvis without IV contrast HISTORY: Abdominal pain and bloating. Nausea. TECHNIQUE: Axial CT images of the abdomen and pelvis were obtained without IV contrast, with coronal and sagittal 2D reconstructed images. One of the following dose optimization techniques was utilized in the performance of this exam: Automated exposure control; adjustment of the mA and/ or kV according to the patient's size; or use of an iterative reconstruction technique. Specific details can be referenced in the facility's radiology CT exam operational policy. COMPARISON: 03/01/2018. FINDINGS: Hepatobiliary: The gallbladder is surgically absent. Stable hepatic size and morphology. New small amount of perihepatic ascites. The hepatic vasculature is poorly evaluated without the benefit of IV contrast. Peripheral portal venous branches in the right and left hepatic lobes however appear more prominent than on prior imaging studies, with increased periportal edema. Portal vein thrombus is not excluded on this noncontrast exam. Spleen: Negative. Pancreas: Negative. Adrenal glands: Negative. Kidneys: Mild diffuse cortical thinning. No hydronephrosis. Stable nonobstructing calculi in the left kidney measuring up to 7 mm, along with vascular calcifications along both renal tory. Small hypodense and hyperdense lesions in both kidneys appear grossly stable and may represent small cysts including complex hemorrhagic cysts. Bowel and peritoneum: The small bowel and colon are normal in caliber. No bowel obstruction. No localized bowel wall thickening by noncontrast CT imaging. Colonic diverticulosis along the descending and sigmoid colon, without evidence of diverticulitis. Trace perihepatic ascites as noted above. No free fluid elsewhere. No free intraperitoneal air. Pelvic structures: Negative. Lymph node assessment: Multiple mildly prominent retroperitoneal lymph nodes are nonspecific and appear stable, measuring up to 1.7 x 1.2 cm. Vessels: Extensive atherosclerotic vascular calcification. Normal caliber abdominal aorta. Musculoskeletal: No acute osseous findings. Advanced multilevel degenerative changes throughout the spine. Prior interbody fusion at L2-L3. Body wall: Prior ventral hernia repair along the lower right abdominal wall. Stable small linear fluid collection along the lower right abdominal wall measuring 1.4 cm in thickness and approximately 10 cm in transverse length. This may represent a chronic postsurgical seroma. Lung bases: New small layering right pleural effusion, with atelectasis in the right lung base. Mild left basilar atelectasis. IMPRESSION: 1. Intrahepatic portal vein branches appear more prominent than on prior examinations with some increased periportal edema. This is not well characterized by noncontrast CT examination, but portal vein thrombus is not excluded. Patient has renal insufficiency and a documented contrast allergy which precludes contrast-enhanced CT imaging. Doppler ultrasound of the liver could be performed for further evaluation to assess for possible portal vein thrombosis. 2. New small amount of perihepatic ascites, along with a new small right pleural effusion. 3. No other new intra-abdominal findings by noncontrast CT imaging. 4. Cholecystectomy. 5. Nonobstructing left renal calculi. 6. Colonic diverticulosis. The small bowel and colon are normal in caliber. Findings were discussed with KALPESH PHAN at 04/28/2018 5:10 PM. Report Dictated By: Roland Nolan MD at 04/28/2018 4:51 PM EXAMINATION: Right upper quadrant abdominal ultrasound with Doppler HISTORY: Abnormal CT. Evaluate for portal vein thrombus. COMPARISON: CT abdomen/pelvis without contrast performed earlier today. FINDINGS: Liver: Normal hepatic echotexture. No focal liver lesions identified. Doppler evaluation demonstrates patency of the main portal vein and right and left portal veins with normal flow direction. Segmentally visualized intrahepatic portal vein branches appear patent. The central hepatic veins also appear patent with normal flow direction. Gallbladder: Surgically absent. Bile Ducts: The common bile duct is mildly dilated measuring 9 mm, which may be due to the postcholecystectomy state. No evidence of intrahepatic ductal dilatation. Pancreas: Poorly visualized, mostly obscured by overlying bowel gas. Right kidney: Diffuse cortical thinning with mild increased echogenicity of the cortical parenchyma compatible with medical renal disease. No hydronephrosis. The right kidney measures 10.9 cm in length. 2.1 cm cyst along the mid right kidney. Aorta: Visualized proximally. Patent and normal in caliber where seen. IVC: Patent. Ascites: Small amount of perihepatic fluid noted on earlier CT is not well demonstrated on this ultrasound exam. IMPRESSION: 1. The portal veins and hepatic veins appear patent by Doppler ultrasound. Appearance on the prior CT could be due to nonspecific periportal edema. 2. Cholecystectomy. Mild dilatation of the common bile duct may be due to the postcholecystectomy state. 3. Cortical thinning of the right kidney with increased echogenicity suggesting medical renal disease. No hydronephrosis. Report Dictated By: Roland Nolan MD at 04/28/2018 6:47 PM ([facility],KALPESH Ann MD) EKG Interpretation 12 lead EK Rhythm: Demand pacemaker, rate of 70 bpm, atrial fibrillation with PAC [place]: Left axis deviation QRS: Incomplete right bundle branch block or fall injury ST segments: normal, comparison to previous EKGs dated 11/06/16 and . There is no significant morphologic change with compared to previous EKG . Imaging Results: Ultrasound of the liver was obtained. The results of the study are EXAMINATION: Right upper quadrant abdominal ultrasound with Doppler HISTORY: Abnormal CT. Evaluate for portal vein thrombus. COMPARISON: CT abdomen/pelvis without contrast performed earlier today. FINDINGS: Liver: Normal hepatic echotexture. No focal liver lesions identified. Doppler evaluation demonstrates patency of the main portal vein and right and left portal veins with normal flow direction. Segmentally visualized intrahepatic portal vein branches appear patent. The central hepatic veins also appear patent with normal flow direction. Gallbladder: Surgically absent. Bile Ducts: The common bile duct is mildly dilated measuring 9 mm, which may be due to the postcholecystectomy state. No evidence of intrahepatic ductal dilatation. Pancreas: Poorly visualized, mostly obscured by overlying bowel gas. Right kidney: Diffuse cortical thinning with mild increased echogenicity of the cortical parenchyma compatible with medical renal disease. No hydronephrosis. The right kidney measures 10.9 cm in length. 2.1 cm cyst along the mid right kidney. Aorta: Visualized proximally. Patent and normal in caliber where seen. IVC: Patent. Ascites: Small amount of perihepatic fluid noted on earlier CT is not well demonstrated on this ultrasound exam. IMPRESSION: 1. The portal veins and hepatic veins appear patent by Doppler ultrasound. Appearance on the prior CT could be due to nonspecific periportal edema. 2. Cholecystectomy. Mild dilatation of the common bile duct may be due to the postcholecystectomy state. 3. Cortical thinning of the right kidney with increased echogenicity suggesting medical renal disease. No hydronephrosis. The study was read by the radiologist. I viewed the images myself on the PACS system. (COLLEEN BHAKTA DO) ED Course/Re-evaluation Clinical Indication for ER IV: IV Access ED Course After my initial evaluation, I talked with the patient and family that she would likely need to stay and get a blood transfusion. She had labs earlier today and I reviewed these with them. Anemia has been chronically decreasing over the last few months, but down to critical level today causing the weakness , fatigue and shortness of breath. Likely GI blood loss. CT scan ordered non- contrast due to allergy and kidney function. This showed some periportal edema. She has diverticulosis, but no inflammation, no changes in large or small bowel , and had non-obstruction kidney stones. Concern for possible portal vein thrombus, but ultrasound done after this did not demonstrate a problem. She is on blood thinners, Eliquis and aspirin. IV started and 2 units of PRBCs were ordered. Troponin and EKG ordered. Discussed case with Dr. Penny who will be admitting as long as no acute coronary syndrome is present. Turned Over The care of the patient was turned over to Dr. Bhakta. Kalpesh Phan M.D. I authorize my typed signature that I authenticated this report. (KALPESH PHAN MD) ED Course Care assumed at shift change from Dr. Phan with pending. EKG and troponin to rule out occult ischemic disease as the etiology of her dizziness and shortness of breath. Her EKG is unchanged from previous EKGs on comparison to old EKGs from 11/06/16. She has a demand pacer rhythm now. Her troponin returns unremarkable. 04/28/2018 7:22:44 pm case discussed with Dr. Shelby Baker who accepts patient for admission. Decision to Disposition Date: Apr 28, 2018 Decision to Disposition Time: 19:14 (COLLEEN BHAKTA DO) Depart Departure Latest Vital Signs Vital Signs Date Time Temp Pulse Resp B/P (MAP) Pulse Ox O2 Delivery O2 Flow Rate FiO2 04/28/18 19:30 ???/??? (1665) 04/28/18 19:26 79 99 04/28/18 15:39 97.7 18 Room Air (COLLEEN BHAKTA DO) Impression: Primary Impression: Anemia Additional Impressions: GI bleed Prerenal acute renal failure Condition: Improved Disposition: Admitted from ER Referrals: SANTOS HAMLIN APRN [employer] [facility] (PCP) Problem Qualifiers Primary Impression: Anemia Anemia type: iron deficiency Iron deficiency anemia type: chronic blood loss Qualified Codes: D50.0 - Iron deficiency anemia secondary to blood loss ( chronic) Additional Impressions: GI bleed GI bleed type/associated pathology: unspecified gastrointestinal hemorrhage type Qualified Codes: K92.2 - Gastrointestinal hemorrhage, unspecified KALPESH PHAN MD Apr 28, 2018 16:02 COLLEEN BHAKTA DO Apr 28, 2018 18:46
--- NOTE | 2018-04-28 17:17 | RADIOLOGY IMAGING REPORT ---
FACILITY: [facility] - [place] PATIENT NAME: Eugenia Rushing : 1945 MR: [id number] V: [id number] EXAM DATE: ORDERING PHYSICIAN: EZEQUIEL BILL TECHNOLOGIST: Location: [facility] [place] Patient: Eugenia Rushing : 1945 Visit/Account:[id number] Date of Sevice: 04/28/2018 EXAMINATION: CT abdomen and pelvis without IV contrast HISTORY: Abdominal pain and bloating. Nausea. TECHNIQUE: Axial CT images of the abdomen and pelvis were obtained without IV contrast, with hickey l and sagittal 2D reconstructed images. One of the following dose optimization techniques was utilized in the performance of this exam: Autom ated exposure control; adjustment of the mA and/or kV according to the patient's size; or use of an i terative reconstruction technique. Specific details can be referenced in the facility's radiology C T exam operational policy. COMPARISON: 03/01/2018. FINDINGS: Hepatobiliary: The gallbladder is surgically absent. Stable hepatic size and morphology. New small am ount of perihepatic ascites. The hepatic vasculature is poorly evaluated without the benefit of IV co ntrast. Peripheral portal venous branches in the right and left hepatic lobes however appear more pro minent than on prior imaging studies, with increased periportal edema. Portal vein thrombus is not ex cluded on this noncontrast exam. Spleen: Negative. Pancreas: Negative. Adrenal glands: Negative. Kidneys: Mild diffuse cortical thinning. No hydronephrosis. Stable nonobstructing calculi in the lef t kidney measuring up to 7 mm, along with vascular calcifications along both renal tory. Small hypode nse and hyperdense lesions in both kidneys appear grossly stable and may represent small cysts includ ing complex hemorrhagic cysts. Bowel and peritoneum: The small bowel and colon are normal in caliber. No bowel obstruction. No loca lized bowel wall thickening by noncontrast CT imaging. Colonic diverticulosis along the descending an d sigmoid colon, without evidence of diverticulitis. Trace perihepatic ascites as noted above. No casie e fluid elsewhere. No free intraperitoneal air. Pelvic structures: Negative. Lymph node assessment: Multiple mildly prominent retroperitoneal lymph nodes are nonspecific and maría ear stable, measuring up to 1.7 x 1.2 cm. Vessels: Extensive atherosclerotic vascular calcification. Normal caliber abdominal aorta. Musculoskeletal: No acute osseous findings. Advanced multilevel degenerative changes throughout the spine. Prior interbody fusion at L2-L3. Body wall: Prior ventral hernia repair along the lower right abdominal wall. Stable small linear flu id collection along the lower right abdominal wall measuring 1.4 cm in thickness and approximately 10 cm in transverse length. This may represent a chronic postsurgical seroma. Lung bases: New small layering right pleural effusion, with atelectasis in the right lung base. Mild left basilar atelectasis. IMPRESSION: 1. Intrahepatic portal vein branches appear more prominent than on prior examinations with some incre ased periportal edema. This is not well characterized by noncontrast CT examination, but portal vein thrombus is not excluded. Patient has renal insufficiency and a documented contrast allergy which pre cludes contrast-enhanced CT imaging. Doppler ultrasound of the liver could be performed for further e valuation to assess for possible portal vein thrombosis. 2. New small amount of perihepatic ascites, along with a new small right pleural effusion. 3. No other new intra-abdominal findings by noncontrast CT imaging. 4. Cholecystectomy. 5. Nonobstructing left renal calculi. 6. Colonic diverticulosis. The small bowel and colon are normal in caliber. Findings were discussed with EZEQUIEL BILL at 04/28/2018 5:10 PM. Report Dictated By: Roland Nolan MD at 04/28/2018 4:51 PM Report E-Signed By: Roland Nolan MD at 04/28/2018 5:13 PM WSN:[id number]
--- NOTE | 2018-04-28 18:57 | RADIOLOGY IMAGING REPORT ---
FACILITY: [facility] [place] PATIENT NAME: Eugenia Rushing : 1945 MR: [id number] V: [id number] EXAM DATE: ORDERING PHYSICIAN: EZEQUIEL BILL TECHNOLOGIST: Location: [facility] [place] Patient: Eugenia Rushing : 1945 Visit/Account:[id number] Date of Sevice: 04/28/2018 EXAMINATION: Right upper quadrant abdominal ultrasound with Doppler HISTORY: Abnormal CT. Evaluate for portal vein thrombus. COMPARISON: CT abdomen/pelvis without contrast performed earlier today. FINDINGS: Liver: Normal hepatic echotexture. No focal liver lesions identified. Doppler evaluation demonstrat es patency of the main portal vein and right and left portal veins with normal flow direction. Segmen tally visualized intrahepatic portal vein branches appear patent. The central hepatic veins also appe ar patent with normal flow direction. Gallbladder: Surgically absent. Bile Ducts: The common bile duct is mildly dilated measuring 9 mm, which may be due to the postcholec ystectomy state. No evidence of intrahepatic ductal dilatation. Pancreas: Poorly visualized, mostly obscured by overlying bowel gas. Right kidney: Diffuse cortical thinning with mild increased echogenicity of the cortical parenchyma c ompatible with medical renal disease. No hydronephrosis. The right kidney measures 10.9 cm in length. 2.1 cm cyst along the mid right kidney. Aorta: Visualized proximally. Patent and normal in caliber where seen. IVC: Patent. Ascites: Small amount of perihepatic fluid noted on earlier CT is not well demonstrated on this ultr asound exam. IMPRESSION: 1. The portal veins and hepatic veins appear patent by Doppler ultrasound. Appearance on the prior CT could be due to nonspecific periportal edema. 2. Cholecystectomy. Mild dilatation of the common bile duct may be due to the postcholecystectomy sta te. 3. Cortical thinning of the right kidney with increased echogenicity suggesting medical renal disease . No hydronephrosis. Report Dictated By: Roland Nolan MD at 04/28/2018 6:47 PM Report E-Signed By: Roland Nolan MD at 04/28/2018 6:54 PM WSN:[id number]
[2018-04-28] MEDS ORDERED: CALC625T57 PO (19:17)
[2018-04-28 20:01] LABS: PLATELET COUNT, AUTOMATED 107 K/uL (150-450)
[2018-04-28 20:09] VITALS: BP 129/84
[2018-04-28] MEDS ORDERED: FLUSH 10 ML SYR IVP PRN (20:40)
[2018-04-28] MEDS ORDERED: INFLUENZA VIRUS VAC 0.5 ML SYR IM ONLY ONE (20:40)
--- NOTE | 2018-04-28 20:44 | EKG ---
FACILITY: [facility] [place] PATIENT NAME: SHANTE ROME : [id number] MR: [id number] V: [id number] EXAM DATE: ORDERING PHYSICIAN: EZEQUIEL BILL TECHNOLOGIST: FRANCOIS Test Reason : DYSPNEA Blood Pressure : / mmHG Vent. Rate : 070 BPM Atrial Rate : 069 BPM P-R Int : 000 ms QRS Dur : 116 ms QT Int : 406 ms P-R-T Axes : 000 -68 064 degrees QTc Int : 438 ms Atrial fibrillation with demand pacemaker Left axis deviation Incomplete right bundle branch block Abnormal ECG Confirmed by JOSE E MANSFIELD ([id number]) on 04/29/2018 5:44:33 AM Referred By: Confirmed By:JOSE E MANSFIELD
[2018-04-28] MEDS: CARVEDILOL 6.25 MG TAB PO SCH (21:00)
--- NOTE | 2018-04-28 21:19 | History & Physical ---
History of Present Illness Chief Complaint Weak and short of breath History of Present Illness 73yo female with extensive PMHx including CAD s/p PTCA and stents, TAVR, a-fib, ventricular fibrillation s/p AICD placement, CRF, type 2 DM. She reports onset of nausea and diarrhea about 10 days ago. She had multiple BMs/day over approximately 2-3 days. She was unable to characterize the stools other than loose as her vision is "not very good". She denied any associated fevers or chills. The GI symptoms have resolved, but she now reports she has had increasing dyspnea and generalized weakness. She denies any CP. She has not had any syncopal or presyncopal sensations. Her AICD has not fired. She denies any cough or sputum. She has not had significant LE edema. She was evaluated in the outpatient clinic and ER. She was found to be anemic and recommended for admission. History Problems: (1) HTN (hypertension) Status: Chronic (2) COPD (chronic obstructive pulmonary disease) Status: Chronic (3) Diabetic neuropathy Status: Chronic (4) Gout Status: Chronic (5) CAD (coronary artery disease) Status: Chronic (6) Nephrolithiasis Status: Chronic (7) Hyperlipidemia Status: Chronic (8) CKD (chronic kidney disease), stage III Status: Chronic (9) Insulin-requiring or dependent type II diabetes mellitus Status: Chronic (10) Obesity (BMI 30.0-34.9) Status: Chronic (11) Persistent atrial fibrillation Status: Chronic (12) Cardiac arrest with ventricular fibrillation Status: Resolved (13) Chronic anticoagulation Status: Chronic (14) Chronic diastolic heart failure Status: Chronic (15) Hx of cholecystectomy Status: Chronic (16) Hx of ventral hernia repair Status: Chronic (17) Hx of tonsillectomy Status: Chronic (18) H/O hernia repair Status: Chronic (19) S/P TAVR (transcatheter aortic valve replacement) Status: Chronic Home Meds Active Scripts Ferrous Sulfate (IRON) 325 Mg Tablet, 1 TAB PO BID, #60 TAB 0 Refills Prov:SANTOS HAMLIN APRN PHARMACY GENERAL MANAGER-C 04/28/18 Clonidine Hcl (CLONIDINE HCL) 0.1 Mg Tablet, 1 TAB PO BID, #180 TAB 1 Refill Prov:SANTOS HAMLIN APRN PHARMACY GENERAL MANAGER-C 04/24/18 Pregabalin (LYRICA) 50 Mg Capsule, 1 CAP PO TID, #90 CAPSULE 5 Refills Prov:SANTOS HAMLIN APRNP-C 03/22/18 Amlodipine Besylate (AMLODIPINE BESYLATE) 10 Mg Tablet, 1 TAB PO QDAY, #90 TAB 1 Refill Prov:SANTOS HAMLIN APRNP-C 03/09/18 Furosemide (FUROSEMIDE) 40 Mg Tablet, 1 TAB PO BID, #180 TAB 2 Refills Prov:SANTOS HAMLIN APRN PHARMACY GENERAL MANAGER-C 01/25/18 Hum Insulin Nph/Reg Insulin Hm (NOVOLIN 70-30 100 UNIT/ML VIAL) 100 Unit/1 Ml Vial, 55-60 UNIT SQ BID, #3 VIAL 12 Refills 60 units every morning and 55 units every evening Prov:SANTOS HAMLIN APRNP-C 12/23/17 [Diabetic Supplies] No Conflict Check, [facility] MC 2-3XD, #300 EACH Prov:SANTOS HAMLIN APRNP-C 12/08/17 Allopurinol (Allopurinol) 300 Mg Tablet, 1 TAB PO QDAY, #90 TAB 2 Refills Prov:SANTOS HAMLIN APRN PHARMACY GENERAL MANAGER-C 10/13/17 Atorvastatin Calcium (ATORVASTATIN CALCIUM) 40 Mg Tablet, 1 TAB PO QDAY, #90 TAB 2 Refills Prov:SANTOS HAMLIN APRN PHARMACY GENERAL MANAGER-C 08/12/17 Carvedilol (CARVEDILOL) 12.5 Mg Tablet, 1 TAB PO BID, #180 TAB 3 Refills Prov:SANTOS HAMLIN APRN [facility] 05/30/17 Reported Medications Calcium Polycarbophil (FIBERCON) 625 Mg Tablet, 625 MG PO 04/28/18 Clopidogrel Bisulfate (CLOPIDOGREL) 75 Mg Tablet, 1 TAB PO QDAY, TAB 02/09/18 Apixaban (ELIQUIS) 5 Mg Tablet, 5 MG PO BID 11/01/17 Potassium Chloride (KLOR-CON M10) 10 Meq Tab.er.prt, 10 MEQ PO QDAY 07/01/17 Nitroglycerin (NITROGLYCERIN) 0.4 Mg Tab.subl, 0.4 MG SL Q5MIN Y for CHEST PAIN 12/09/16 Ranitidine Hcl (RANITIDINE HCL) 150 Mg Capsule, 1 CAP PO QDAY, CAPSULE 12/09/16 Vit C/E/Zn/Coppr/Lutein/Zeaxan (Preservision Areds 2 Softgel) 1 Each Capsule, 1 CAP PO BID 12/09/16 Calcium Carb & Cit/Vitamin D3 (CALCIUM + D3 ER TABLET) 1 Each Tablet.er, 1 EACH PO QDAY 12/09/16 Aspirin (ASPIRIN) 81 Mg Tab.chew, 1 TAB PO QDAY, TAB.CHEW 06/02/15 Oxygen (OXYGEN) 2 L Inha, 2 L INH CONTINUOUS, L 02/13/15 Docusate Sodium (Colace 100 Mg) 100 Mg Cap, 1 CAP PO BID, 0 Refills 03/31/12 Discontinued Reported Medications Oxybutynin Chloride (DITROPAN XL) 10 Mg Tab.er.24, 10 MG PO QDAY, TAB 07/11/17 Carboxymethylcellulose Sodium (LUBRICANT EYE DROPS) 1 Each Droperette, 1 DROP OP Q4H 12/09/16 Discontinued Scripts Ferrous Sulfate (FERROUS SULFATE) 324 Mg Tablet.dr, 324 MG PO DAILY, #90 TAB 1 Refill Prov:CHARLES GONSALVES MD 04/20/18 Clotrimazole (CLOTRIMAZOLE) 10 Mg Troc, 1 EACH PO 5XD, #70 ALBERTINA 0 Refills Prov:SANTOS HAMLIN APRN-Grace 03/21/18 Ipratropium/Albuterol Sulfate (IPRAT-ALBUT 0.5-3(2.5) MG/3 ML) 3 Ml Ampul.neb, 1 VIAL IH Q6H Y for SHORTNESS OF BREATH, #30 VIAL 2 Refills Prov:SANTOS HAMLIN APRN-C 12/23/17 Lidocaine (Lidocaine) 5 % Adh..patch, 1 PATCH TOP DAILY, #30 PATCH [address] for 12 hours then remove and leave off for 12 hours prior to replacing with a new patch Prov:SANTOS HAMLIN APRN 09/12/17 Allergies: Coded Allergies: Penicillins (Verified Allergy, Intermediate, HIVES, 04/28/18) codeine (Verified Allergy, Intermediate, HIVES, 04/28/18) lisinopril (Verified Allergy, Intermediate, ITCHING, RASH, 04/28/18) Iodinated Contrast- Oral and IV Dye (Verified Allergy, Unknown, 04/28/18) fluconazole (Verified Adverse Reaction, Intermediate, DIARRHEA, 04/28/18) hydromorphone HCl (Verified Adverse Reaction, Intermediate, NAUSEA/ VOMITING. "HEAD SPINNING", 04/28/18) Patient History: FH: diabetes mellitus MOTHER, , Age:72 Hx Smoking: Yes Smoking Status: Former Smoker Exposure to Second Hand Smoke?: No Caffeine Intake: Soda Caffeine/Cups Per Day: occasional Hx Alcohol Use: No Hx Substance Use Disorder: No Social Drug Use: Never Review of Systems Constitutional: No Fever, No Chills Cardiovascular: No Chest Pain, No Palpitations Respiratory: Shortness of Breath, No Cough, No Wheezing Gastrointestinal: Nausea, No Vomiting, Diarrhea, No Abdominal Pain Genitourinary: Urinary Incontinence, No Dysuria, No Hematuria Exam Vital Signs Vital Signs Date Time Temp Pulse Resp B/P (MAP) Pulse Ox O2 Delivery O2 Flow Rate FiO2 04/28/18 20:09 97.9 78 15 129/84 (99) 97 Nasal Cannula 3.0 General Appearance: Alert, Awake Neuro: Other (No focal motor deficits) Eyes: Other (vision diminished) ENT: Oropharynx Clear, Other (face symmetric) Neck: Other (short/thick/difficult to assess for JVD) Cardiovascular: Regular Rate and Rhythm (with systolic murmur) Respiratory: Other (diminished throughout/no wheezes) Chest: No Tenderness, Other (pacer/defibrillator left upper chest) GI: Other (Obese/slightly distended/some mild diffuse tendrness reported with palpation) Extremities: Warm, Perfused Integumentary: Generalized Fragile Skin Psych: Alert & Oriented X3 Medical Decision Making Data Points Result Diagram: 04/28/18 1830 04/28/18 183 Item Value Date Time Albumin 3.6 g/dl 04/28/181829 Total Protein 6.0 g/dl L 04/28/181829 Troponin I < 0.012 ng/ml 04/28/18 183 Alkaline Phosphatase 64 U/L 04/28/18 183 Alanine Aminotransferase (ALT/SGPT) 18 U/L 04/28/18 183 Aspartate Amino Transf (AST/SGOT) 24 U/L 04/28/18 183 Total Bilirubin 0.5 mg/dl 04/28/18 1830 Calcium Level 8.4 mg/dl 04/28/18 1830 Hemoglobin A1c 6.9 % H 04/28/18 1440 White Blood Count 5.5 k/uL 04/28/18 1440 Hemoglobin 8.9 g/dL *L 04/28/18 1440 Hematocrit 28.6 % L 04/28/18 1440 Platelet Count 101 K/uL L 04/28/18 1440 Urine Yeast Few /HPF H 04/28/18 1700 Urine Mucus None /HPF 04/28/18 1700 Urine Hyaline Casts Few /LPF 04/28/18 1700 Urine Bacteria Few /HPF 04/28/18 1700 Urine Transitional Epithelial Cells Few /LPF 04/28/18 1700 Urine Squamous Epithelial Cells Many /LPF H 04/28/18 1700 Urine WBC Clumps Mod /HPF 04/28/18 1700 Urine WBC 148 /HPF 04/28/18 1700 Urine RBC 27 /HPF 04/28/18 1700 Urine Leukocyte Esterase Large H 04/28/18 1700 Urine Urobilinogen Negative mg/dL 04/28/18 1700 Urine Bilirubin Negative 04/28/18 1700 Urine Nitrite Negative 04/28/18 1700 Urine Blood Moderate 04/28/18 1700 Urine Ketones Negative mg/dL 04/28/18 1700 Urine Glucose (UA) Negative mg/dL 04/28/18 1700 Urine Protein Negative mg/dL 04/28/18 1700 Urine Specific [place] 1.010 04/28/18 1700 Urine pH 5.0 pH 04/28/18 1700 Urine Clarity Slightly-cloudy 04/28/18 1700 Urine Color Yellow 04/28/18 1700 Stool Occult Blood Screen Positive H 04/25/18 1043 Clostridium Difficile Toxin A & B Negative 04/25/18 1043 Clostridium difficile Antigen Negative 04/25/18 1043 EKG / Imaging Imaging PATIENT NAME: Eugenia Rushing : 1945 MR: [id number] V: [id number] EXAM DATE: ORDERING PHYSICIAN: EZEQUIEL BILL TECHNOLOGIST: Location: [facility] [place] Patient: Eugenia Rushing : 1945 Visit/Account:[id number] Date of Sevice: 04/28/2018 EXAMINATION: CT abdomen and pelvis without IV contrast HISTORY: Abdominal pain and bloating. Nausea. TECHNIQUE: Axial CT images of the abdomen and pelvis were obtained without IV contrast, with coronal and sagittal 2D reconstructed images. One of the following dose optimization techniques was utilized in the performance of this exam: Automated exposure control; adjustment of the mA and/ or kV according to the patient's size; or use of an iterative reconstruction technique. Specific details can be referenced in the facility's radiology CT exam operational policy. COMPARISON: 03/01/2018. FINDINGS: Hepatobiliary: The gallbladder is surgically absent. Stable hepatic size and morphology. New small amount of perihepatic ascites. The hepatic vasculature is poorly evaluated without the benefit of IV contrast. Peripheral portal venous branches in the right and left hepatic lobes however appear more prominent than on prior imaging studies, with increased periportal edema. Portal vein thrombus is not excluded on this noncontrast exam. Spleen: Negative. Pancreas: Negative. Adrenal glands: Negative. Kidneys: Mild diffuse cortical thinning. No hydronephrosis. Stable nonobstructing calculi in the left kidney measuring up to 7 mm, along with vascular calcifications along both renal tory. Small hypodense and hyperdense lesions in both kidneys appear grossly stable and may represent small cysts including complex hemorrhagic cysts. Bowel and peritoneum: The small bowel and colon are normal in caliber. No bowel obstruction. No localized bowel wall thickening by noncontrast CT imaging. Colonic diverticulosis along the descending and sigmoid colon, without evidence of diverticulitis. Trace perihepatic ascites as noted above. No free fluid elsewhere. No free intraperitoneal air. Pelvic structures: Negative. Lymph node assessment: Multiple mildly prominent retroperitoneal lymph nodes are nonspecific and appear stable, measuring up to 1.7 x 1.2 cm. Vessels: Extensive atherosclerotic vascular calcification. Normal caliber abdominal aorta. Musculoskeletal: No acute osseous findings. Advanced multilevel degenerative changes throughout the spine. Prior interbody fusion at L2-L3. Body wall: Prior ventral hernia repair along the lower right abdominal wall. Stable small linear fluid collection along the lower right abdominal wall measuring 1.4 cm in thickness and approximately 10 cm in transverse length. This may represent a chronic postsurgical seroma. Lung bases: New small layering right pleural effusion, with atelectasis in the right lung base. Mild left basilar atelectasis. IMPRESSION: 1. Intrahepatic portal vein branches appear more prominent than on prior examinations with some increased periportal edema. This is not well characterized by noncontrast CT examination, but portal vein thrombus is not excluded. Patient has renal insufficiency and a documented contrast allergy which precludes contrast-enhanced CT imaging. Doppler ultrasound of the liver could be performed for further evaluation to assess for possible portal vein thrombosis. 2. New small amount of perihepatic ascites, along with a new small right pleural effusion. 3. No other new intra-abdominal findings by noncontrast CT imaging. 4. Cholecystectomy. 5. Nonobstructing left renal calculi. 6. Colonic diverticulosis. The small bowel and colon are normal in caliber. Findings were discussed with EZEQUIEL BILL at 04/28/2018 5:10 PM. Report Dictated By: Roland Nolan MD at 04/28/2018 4:51 PM Report E-Signed By: Roland Nolan MD at 04/28/2018 5:13 PM WSN:[id number] PATIENT NAME: Eugenia Rushing : 1945 MR: [id number] V: [id number] EXAM DATE: ORDERING PHYSICIAN: EZEQUIEL BILL TECHNOLOGIST: Location: [facility] [place] Patient: Eugenia Rushing : 1945 Visit/Account:[id number] Date of Sevice: 04/28/2018 EXAMINATION: Right upper quadrant abdominal ultrasound with Doppler HISTORY: Abnormal CT. Evaluate for portal vein thrombus. COMPARISON: CT abdomen/pelvis without contrast performed earlier today. FINDINGS: Liver: Normal hepatic echotexture. No focal liver lesions identified. Doppler evaluation demonstrates patency of the main portal vein and right and left portal veins with normal flow direction. Segmentally visualized intrahepatic portal vein branches appear patent. The central hepatic veins also appear patent with normal flow direction. Gallbladder: Surgically absent. Bile Ducts: The common bile duct is mildly dilated measuring 9 mm, which may be due to the postcholecystectomy state. No evidence of intrahepatic ductal dilatation. Pancreas: Poorly visualized, mostly obscured by overlying bowel gas. Right kidney: Diffuse cortical thinning with mild increased echogenicity of the cortical parenchyma compatible with medical renal disease. No hydronephrosis. The right kidney measures 10.9 cm in length. 2.1 cm cyst along the mid right kidney. Aorta: Visualized proximally. Patent and normal in caliber where seen. IVC: Patent. Ascites: Small amount of perihepatic fluid noted on earlier CT is not well demonstrated on this ultrasound exam. IMPRESSION: 1. The portal veins and hepatic veins appear patent by Doppler ultrasound. Appearance on the prior CT could be due to nonspecific periportal edema. 2. Cholecystectomy. Mild dilatation of the common bile duct may be due to the postcholecystectomy state. 3. Cortical thinning of the right kidney with increased echogenicity suggesting medical renal disease. No hydronephrosis. Report Dictated By: Roland Nolan MD at 04/28/2018 6:47 PM Report E-Signed By: Roland Nolan MD at 04/28/2018 6:54 PM WSN:[id number] Assessment and Plan Problems: (1) Symptomatic anemia Status: Acute Assessment & Plan: She has had a drop in her Hgb/Hct over past few weeks. She did have a heme positive stool as an outpatient a couple of days ago. Will re- check stool. Will hold her aspirin, Plavix, and Eliquis for now. Will check erythropoietin level as she does have chronic renal failure. Watch labs closely. Will transfuse if she trends down any further. May need to consider endoscopy as well. (2) Chronic diastolic heart failure Status: Chronic Assessment & Plan: It appears she may have a mild exacerbation, which could be related to the anemia as well. May need to consider transfusion due to her significant concomitant illnesses. Will check echocardiogram (most recent approximately 6 months ago with EF ~57%/pulmonary hypertension). (3) CAD (coronary artery disease) Status: Chronic Assessment & Plan: She appears reasonably stable from this standpoint. Will need to hold her aspirin and Plavix initially, but will need to consider re- starting very soon as she had PTCA with stenting just a little over 2 months ago. Will continue her beta kait and statin therapy. (4) Persistent atrial fibrillation Status: Chronic Assessment & Plan: She has been anticoagulated with Eliquis. Will need to hold acutely due to potential for GI bleeding. (5) Insulin-requiring or dependent type II diabetes mellitus Status: Chronic Assessment & Plan: ADA diet, monitor glucoses, continue insulin regimen, use SSI as needed. (6) CKD (chronic kidney disease), stage III Status: Chronic Assessment & Plan: Her creatinine is 1.3 today, which is her baseline. Will monitor. Check erythropoietin level as noted above. (7) UTI (urinary tract infection) Status: Acute Assessment & Plan: It appears she may have UTI, but sample may be contaminated (many squamous epis). Will culture and cover acutely with Levaquin. Copies to: CHARLES GONSALVES MD Venous Thromboembolism Antithrombotics Is Pt On Any Antithrombotics?: Yes (but will be held) Prophylaxis Tx Contraindicated Pharmacological Contraindicati: Active Bleeding Exam Sepsis Risk: No Definite Risk JOSE E MANSFIELD MD Apr 28, 2018 21:19
[2018-04-28] MEDS: cloNIDine HCL 0.1 MG TAB PO SCH (21:45)
[2018-04-28] MEDS: RANITIDINE HCL 150 MG TAB PO SCH (21:45)
[2018-04-28] MEDS: PREGABALIN 50 MG CAP PO SCH (21:48)
[2018-04-28] MEDS: PANTOPRAZOLE SOD 40 MG IV VIAL IVP SCH (21:48)
[2018-04-28] MEDS: LEVOFLOXACIN 500 MG TAB PO SCH (21:52)
[2018-04-28] MEDS: NS(*) 0.9% 1000 ML BAG 1,000 ML IV PRN (21:52)
[2018-04-29] VITALS (7 sets, daily range): BP systolic 104–141; BP diastolic 48–84; BMI 37.5
[2018-04-29 06:22] LABS: PLATELET COUNT, AUTOMATED 101 K/uL (150-450)
[2018-04-29] MEDS ORDERED: HUM100VI15 SQ (07:10)
[2018-04-29] MEDS ORDERED: POTA20TA94 PO (07:10)
[2018-04-29] MEDS ORDERED: CLON-327 PO (07:10)
[2018-04-29] MEDS: amLODIPine BESYL(*) 5 MG TAB PO SCH (09:00)
[2018-04-29] MEDS: ATORVASTATIN 40 MG TAB PO SCH (09:06)
[2018-04-29] MEDS: ALLOPURINOL 300 MG TAB PO SCH (09:06)
[2018-04-29] MEDS: PREGABALIN 50 MG CAP PO SCH ×3 (09:06→21:02)
[2018-04-29] MEDS: RANITIDINE HCL 150 MG TAB PO SCH ×2 (09:06→21:02)
[2018-04-29] MEDS: CARVEDILOL 6.25 MG TAB PO SCH ×2 (09:06→21:03)
[2018-04-29] MEDS: LEVOFLOXACIN 500 MG TAB PO SCH (09:07)
[2018-04-29] MEDS: cloNIDine HCL 0.1 MG TAB PO SCH ×2 (09:08→21:01)
[2018-04-29] MEDS: PANTOPRAZOLE SOD 40 MG IV VIAL IVP SCH ×2 (09:09→21:06)
[2018-04-29] MEDS: INS HUMAN ISOPH/INS REG 70/30 100 UNIT/ML 3ML VIAL SUBQ SCH ×2 (09:10→16:49)
[2018-04-29] MEDS: INSULIN HUM LISPRO 100 UN/ML 3 ML VIAL SUBQ PRN ×3 (09:10→16:49)
--- NOTE | 2018-04-29 10:11 | Hospitalist Progress Note ---
Subjective Progress Notes Subjective The patient complains of ongoing abdominal discomfort. Nausea is better. No further diarrhea. Physical Exam Vital Signs Date Time Temp Pulse Resp B/P (MAP) Pulse Ox O2 Delivery O2 Flow Rate FiO2 04/29/18 07:53 98.1 80 16 109/67 (81) 96 Nasal Cannula 1.5 General Appearance: Alert, Awake, No Acute Distress, Afebrile Neuro: No Gross deficits Cardiovascular: Other (Irregularly irregular) Respiratory: No Respiratory Distress, Clear to Auscultation GI: Soft and Non-Tender Extremities: Warm, Perfused Psych: Alert & Oriented X3, Appropriate Mood & Affect Result Diagram: 04/29/1853204/29/18532 Assessment and Plan Problems: (1) Symptomatic anemia Status: Acute Assessment & Plan: She has had a drop in her Hgb/Hct over past few weeks. She did have a heme positive stool as an outpatient a couple of days ago. Will re- check stool. Will hold her aspirin, Plavix, and Eliquis for now. Will check erythropoietin level as she does have chronic renal failure. Watch labs closely. Will transfuse if she trends down any further. May need to consider endoscopy as well. (2) Chronic diastolic heart failure Status: Chronic Assessment & Plan: It appears she may have a mild exacerbation, which could be related to the anemia as well. She feels a bit better today. Consider transfusion due to her significant concomitant illnesses if she continues to be symptomatic. Will check echocardiogram (most recent approximately 6 months ago with EF ~57%/pulmonary hypertension). (3) CAD (coronary artery disease) Status: Chronic Assessment & Plan: She appears reasonably stable from this standpoint. Will need to hold her aspirin and Plavix initially, but will need to consider re- starting very soon as she had PTCA with stenting just a little over 2 months ago. Will continue her beta kait and statin therapy. (4) Persistent atrial fibrillation Status: Chronic Assessment & Plan: She has been anticoagulated with Eliquis. Will need to hold acutely due to potential for GI bleeding. (5) Insulin-requiring or dependent type II diabetes mellitus Status: Chronic Assessment & Plan: ADA diet, monitor glucoses, continue insulin regimen, use SSI as needed. (6) CKD (chronic kidney disease), stage III Status: Chronic Assessment & Plan: Her creatinine is 1.1 today, which is her baseline. Will monitor. Check erythropoietin level as noted above. (7) UTI (urinary tract infection) Status: Acute Assessment & Plan: It appears she may have UTI, but sample may be contaminated (many squamous epis). Will culture and cover acutely with Levaquin. Time Spent on Plan of Care: < 30 min Exam Sepsis Risk: No Definite Risk FRANCESCA MANSFIELD MD Apr 29, 2018 10:11
[2018-04-29] MEDS: LUTEIN PO SCH ×2 (10:26→21:02)
[2018-04-29] MEDS: ZEAXANTHIN PO SCH ×2 (10:26→21:02)
[2018-04-29] MEDS ORDERED: MAGNESIUM SUL* 2 GM/50 ML IVPB 50 ML IVPB ONE (20:00)
[2018-04-29] MEDS: ACETAMINOPHEN 325 MG TAB PO PRN (21:14)
--- NOTE | 2018-04-29 22:50 | EKG ---
FACILITY: [facility] - [place] PATIENT NAME: SHANTE ROME : [id number] MR: [id number] V: [id number] EXAM DATE: ORDERING PHYSICIAN: FRANCESCA MANSFIELD TECHNOLOGIST: FRANCOIS Test Reason : ? PROLONGED QT Blood Pressure : / mmHG Vent. Rate : 084 BPM Atrial Rate : 094 BPM P-R Int : 000 ms QRS Dur : 110 ms QT Int : 390 ms P-R-T Axes : 000 -70 088 degrees QTc Int : 460 ms Atrial fibrillation Left axis deviation Anterolateral infarct (cited on or before 29-APR-2018) Abnormal ECG Confirmed by FRANCESCA LOBO ([id number]) on 04/30/2018 6:51:19 AM Referred By: Confirmed By:FRANCESCA LOBO
[2018-04-30] VITALS (13 sets, daily range): BP systolic 108–183; BP diastolic 48–113
[2018-04-30 06:15] LABS: PLATELET COUNT, AUTOMATED 93 K/uL (150-450)
[2018-04-30] MEDS: INS HUMAN ISOPH/INS REG 70/30 100 UNIT/ML 3ML VIAL SUBQ SCH ×2 (08:17→17:30)
[2018-04-30] MEDS: INSULIN HUM LISPRO 100 UN/ML 3 ML VIAL SUBQ PRN ×3 (08:18→21:11)
[2018-04-30] MEDS: amLODIPine BESYL(*) 5 MG TAB PO SCH (09:00)
[2018-04-30] MEDS: ATORVASTATIN 40 MG TAB PO SCH (09:37)
[2018-04-30] MEDS: ALLOPURINOL 300 MG TAB PO SCH (09:37)
[2018-04-30] MEDS: RANITIDINE HCL 150 MG TAB PO SCH ×2 (09:37→21:11)
[2018-04-30] MEDS: cloNIDine HCL 0.1 MG TAB PO SCH ×2 (09:37→21:11)
[2018-04-30] MEDS: PREGABALIN 50 MG CAP PO SCH ×3 (09:38→21:11)
[2018-04-30] MEDS: PANTOPRAZOLE SOD 40 MG IV VIAL IVP SCH ×2 (09:38→21:11)
[2018-04-30] MEDS: CARVEDILOL 6.25 MG TAB PO SCH ×2 (09:40→21:11)
[2018-04-30] MEDS: ZEAXANTHIN PO SCH ×2 (10:23→21:11)
[2018-04-30] MEDS: LUTEIN PO SCH ×2 (10:23→21:11)
--- NOTE | 2018-04-30 10:35 | Hospitalist Progress Note ---
Subjective Progress Notes Subjective She denies any CP/SOB. She did not appreciate any symptoms with burst of v-tach/ Torsades late yesterday. AICD did not fire. Physical Exam Vital Signs Date Time Temp Pulse Resp B/P (MAP) Pulse Ox O2 Delivery O2 Flow Rate FiO2 04/30/18 09:39 128/52 (77) 04/30/18 07:32 98.4 81 11 92 Nasal Cannula 1.5 Intake and Output 05/01/18 07:00 Intake Total 320 ml Balance 320 ml Intake Oral 320 ml # Voids 1 # Bowel Movements 1 General Appearance: Alert, Awake Cardiovascular: Other (Regular with systolic murmur) Respiratory: Clear to Auscultation GI: Soft and Non-Tender Extremities: Warm, Perfused Psych: Alert & Oriented X3 Result Diagram: 04/30/18 0510 04/30/18 0510 Assessment and Plan Problems: (1) Torsades de pointes Status: Acute Assessment & Plan: Short burst yesterday. She did get magnesium and Levaquin stopped. AICD did not fire. Will continue monitoring. Discuss with cardiology. (2) Symptomatic anemia Status: Acute Assessment & Plan: She has had a drop in her Hgb/Hct over past few weeks. She did have a heme positive stool as an outpatient a couple of days ago and re- check here is positive. Will continue to hold her aspirin, Plavix, and Eliquis. Erythropoietin level pending. Watch labs closely. Will transfuse 2 units PRBC ( to keep Hgb >10) as she has significant cardiac disease. We do need to consider endoscopy as well, but given her current cardiac issues will hold off for now. She does not appear to be having significant active bleeding, but we will need to restart her anti-platelet and anticoagulation soon. (3) Chronic diastolic heart failure Status: Chronic Assessment & Plan: It appears she may have a mild exacerbation, which could be related to the anemia as well. Will transfuse as noted above due to her significant concomitant illnesses. Repeat echocardiogram pending (most recent approximately 6 months ago with EF ~57%/pulmonary hypertension). (4) CAD (coronary artery disease) Status: Chronic Assessment & Plan: She appears reasonably stable from this standpoint. Will need to hold her aspirin and Plavix initially, but will need to consider re- starting very soon as she had PTCA with stenting just a little over 2 months ago. Will continue her beta kait and statin therapy. (5) Persistent atrial fibrillation Status: Chronic Assessment & Plan: She has been anticoagulated with Eliquis. Will need to hold acutely due to potential for GI bleeding. (6) Insulin-requiring or dependent type II diabetes mellitus Status: Chronic Assessment & Plan: ADA diet, monitor glucoses, continue insulin regimen, use SSI as needed. (7) CKD (chronic kidney disease), stage III Status: Chronic Assessment & Plan: Her creatinine is 1.2 today, which is near her baseline. Will monitor. Checking erythropoietin level as noted above. (8) UTI (urinary tract infection) Status: Acute Assessment & Plan: It appears she may have UTI, but sample may be contaminated (many squamous epis). Await culture. She did get a dose of Levaquin, but it has been stopped due to short burst of Torsades/V-tach. Exam Sepsis Risk: No Definite Risk JOSE E MANSFIELD MD Apr 30, 2018 10:35
[2018-04-30] MEDS ORDERED: NS(*) 0.9% 500 ML BAG 500 ML ONE (11:02)
[2018-04-30] MEDS: NS(*) 0.9% 1000 ML BAG 1,000 ML IV PRN (11:42)
--- NOTE | 2018-04-30 13:08 | Miscellaneous Provider Note ---
Miscellaneous Provider Note Note I spoke with Dr. Rodriguez (cardiology). He was able to review the monitor strips and the pacer/AICD interrogation. The event was not recorded by her device. He now feels it may have been artifact. He will have Dr. Narvaez review this as well. JOSE E MANSFIELD MD Apr 30, 2018 13:08
[2018-04-30] MEDS ORDERED: FUROSEMIDE 20 MG/2 ML VIAL IVP PRN (13:10)
[2018-04-30] MEDS ORDERED: PEG (High)/E-LYTE SOLN 4000 ML PO ONE (14:00)
[2018-04-30] MEDS: ACETAMINOPHEN 325 MG TAB PO PRN (16:18)
[2018-05-01] VITALS (7 sets, daily range): BP systolic 115–142; BP diastolic 64–92
[2018-05-01 06:10] LABS: PLATELET COUNT, AUTOMATED 91 K/uL (150-450)
[2018-05-01] MEDS: INS HUMAN ISOPH/INS REG 70/30 100 UNIT/ML 3ML VIAL SUBQ SCH ×2 (08:00→16:39)
--- NOTE | 2018-05-01 08:31 | General Surgery Consultation ---
History of Present Illness Requesting Physician Dr. Baker, hospitalist service Reason for Consult Anemia, positive fecal occult blood test Chief Complaint Feeling poorly History of Present Illness 73-year-old female is admitted to the hospitalist service for several days with worsening anemia. The anemia has been worsening over the last couple of months. The patient has not noticed any blood in her stools but her vision is poor. A fecal occult blood test was completed which was positive. She's never had a history of peptic ulcer disease or upper GI complaints. Her last colonoscopy was 6 years ago and was normal. No abdominal pain. She does have a history of atrial fibrillation and a aortic valve replacement. She is chronically on Plavix , aspirin, and Eliquis. These have been stopped for this admission. History Problems: (1) HTN (hypertension) Status: Chronic (2) COPD (chronic obstructive pulmonary disease) Status: Chronic (3) Diabetic neuropathy Status: Chronic (4) Gout Status: Chronic (5) CAD (coronary artery disease) Status: Chronic (6) Nephrolithiasis Status: Chronic (7) Hyperlipidemia Status: Chronic (8) CKD (chronic kidney disease), stage III Status: Chronic (9) Obesity (BMI 30.0-34.9) Status: Chronic (10) Insulin-requiring or dependent type II diabetes mellitus Status: Chronic (11) Persistent atrial fibrillation Status: Chronic (12) Chronic anticoagulation Status: Chronic (13) Urinary incontinence Status: Chronic (14) Chronic diastolic heart failure Status: Chronic (15) Chronic respiratory failure with hypoxia Status: Chronic (16) S/P TAVR (transcatheter aortic valve replacement) Status: Chronic (17) Hx of cholecystectomy Status: Chronic (18) Hx of ventral hernia repair Status: Chronic (19) Hx of tonsillectomy Status: Chronic (20) History of aortic valve replacement with bioprosthetic valve Status: Chronic (21) H/O hernia repair Status: Chronic (22) History of aortic valve replacement * Optional Permanent Comment*: For Aortic stenosis , s/p TAVR in 2013 Last Edited By: Sherine Sun MD on Mar 25, 2017 14:36 Status: Acute Home Meds Active Scripts Ferrous Sulfate (IRON) 325 Mg Tablet, 1 TAB PO BID, #60 TAB 0 Refills Prov:SANTOS HAMLIN APRN [employer] WORK[employer] 04/28/18 Pregabalin (LYRICA) 50 Mg Capsule, 1 CAP PO TID, #90 CAPSULE 5 Refills Prov:LEAHSANTOS WEST APRN [employer] WORKER-C 03/22/18 Amlodipine Besylate (AMLODIPINE BESYLATE) 10 Mg Tablet, 1 TAB PO QDAY, #90 TAB 1 Refill Prov:SANTOS HAMLIN APRN [employer] WORK[employer] 03/09/18 Furosemide (FUROSEMIDE) 40 Mg Tablet, 1 TAB PO BID, #180 TAB 2 Refills Prov:SANTOS HAMLIN APRN [facility] 01/25/18 [Diabetic Supplies] No Conflict Check, 1 [facility] 2-3XD, #300 EACH Prov:SANTOS HAMLIN APRN [employer] WORKER[employer]C 12/08/17 Allopurinol (Allopurinol) 300 Mg Tablet, 1 TAB PO QDAY, #90 TAB 2 Refills Prov:SANTOS HAMLIN APRN [employer] WORK[employer] 10/13/17 Atorvastatin Calcium (ATORVASTATIN CALCIUM) 40 Mg Tablet, 1 TAB PO QDAY, #90 TAB 2 Refills Prov:SANTOS HAMLIN APRN [facility] 08/12/17 Carvedilol (CARVEDILOL) 12.5 Mg Tablet, 1 TAB PO BID, #180 TAB 3 Refills Prov:SANTOS HAMLIN APRN [employer] WORK[employer] 05/30/17 Reported Medications Potassium Chloride (POTASSIUM CHLORIDE) 20 Meq Tab.er.prt, 20 MEQ PO QDAY 04/29/18 Hum Insulin Nph/Reg Insulin Hm (NOVOLIN 70-30 100 UNIT/ML VIAL) 100 Unit/1 Ml Vial, 50 UNIT SQ BID, VIAL 50 units in am, 30 units HS 04/29/18 Clonidine Hcl (CLONIDINE HCL) 0.1 Mg Tablet, 0.1 MG PO BID, TAB 0.5 tab BID 04/29/18 Calcium Polycarbophil (FIBERCON) 625 Mg Tablet, 625 MG PO 04/28/18 Clopidogrel Bisulfate (CLOPIDOGREL) 75 Mg Tablet, 1 TAB PO QDAY, TAB 02/09/18 Apixaban (ELIQUIS) 5 Mg Tablet, 5 MG PO BID 11/01/17 Nitroglycerin (NITROGLYCERIN) 0.4 Mg Tab.subl, 0.4 MG SL Q5MIN Y for CHEST PAIN 12/09/16 Ranitidine Hcl (RANITIDINE HCL) 150 Mg Capsule, 1 CAP PO QDAY, CAPSULE 12/09/16 Vit C/E/Zn/Coppr/Lutein/Zeaxan (Preservision Areds 2 Softgel) 1 Each Capsule, 1 CAP PO BID 12/09/16 Calcium Carb & Cit/Vitamin D3 (CALCIUM + D3 ER TABLET) 1 Each Tablet.er, 1 EACH PO QDAY 12/09/16 Aspirin (ASPIRIN) 81 Mg Tab.chew, 1 TAB PO QDAY, TAB.CHEW 06/02/15 Oxygen (OXYGEN) 2 L Inha, 2 L INH CONTINUOUS, L 02/13/15 Docusate Sodium (Colace 100 Mg) 100 Mg Cap, 1 CAP PO BID, 0 Refills 03/31/12 Discontinued Reported Medications Potassium Chloride (KLOR-CON M10) 10 Meq Tab.er.prt, 10 MEQ PO QDAY 07/01/17 Oxybutynin Chloride (DITROPAN XL) 10 Mg Tab.er.24, 10 MG PO QDAY, TAB 07/11/17 Carboxymethylcellulose Sodium (LUBRICANT EYE DROPS) 1 Each Droperette, 1 DROP OP Q4H 12/09/16 Discontinued Scripts Clonidine Hcl (CLONIDINE HCL) 0.1 Mg Tablet, 1 TAB PO BID, #180 TAB 1 Refill Prov:SANTOS HAMLIN APRN 04/24/18 Hum Insulin Nph/Reg Insulin Hm (NOVOLIN 70-30 100 UNIT/ML VIAL) 100 Unit/1 Ml Vial, 55-60 UNIT SQ BID, #3 VIAL 12 Refills 60 units every morning and 55 units every evening Prov:SANTOS HAMLIN APRN 12/23/17 Ferrous Sulfate (FERROUS SULFATE) 324 Mg Tablet.dr, 324 MG PO DAILY, #90 TAB 1 Refill Prov:SHERINE SUN MD 04/20/18 Clotrimazole (CLOTRIMAZOLE) 10 Mg Troc, 1 EACH PO 5XD, #70 ALBERTINA 0 Refills Prov:SANTOS HAMLIN APRN 03/21/18 Ipratropium/Albuterol Sulfate (IPRAT-ALBUT 0.5-3(2.5) MG/3 ML) 3 Ml Ampul.neb, 1 VIAL IH Q6H Y for SHORTNESS OF BREATH, #30 VIAL 2 Refills Prov:SANTOS HAMLIN NELIA END WORKER-C 12/23/17 Lidocaine (Lidocaine) 5 % Adh..patch, 1 PATCH TOP DAILY, #30 PATCH [address] for 12 hours then remove and leave off for 12 hours prior to replacing with a new patch Prov:SANTOS HAMLIN NELIA END WORKER-C 09/12/17 Allergies: Coded Allergies: Penicillins (Verified Allergy, Intermediate, HIVES, 04/28/18) codeine (Verified Allergy, Intermediate, HIVES, 04/28/18) lisinopril (Verified Allergy, Intermediate, ITCHING, RASH, 04/28/18) Iodinated Contrast- Oral and IV Dye (Verified Allergy, Unknown, 04/28/18) fluconazole (Verified Adverse Reaction, Intermediate, DIARRHEA, 04/28/18) hydromorphone HCl (Verified Adverse Reaction, Intermediate, NAUSEA/ VOMITING. "HEAD SPINNING", 04/28/18) Family History: FH: diabetes mellitus MOTHER, , Age:72 Review of Systems All Systems Reviewed/Normal: Yes, Except as Noted Exam Vital Signs Vital Signs Date Time Temp Pulse Resp B/P (MAP) Pulse Ox O2 Delivery O2 Flow Rate FiO2 05/01/18 07:59 98.0 85 20 138/82 (100) 90 Nasal Cannula 2.0 General Appearance: Alert, Awake, No Acute Distress, Afebrile GI: Abd Soft and Non-Tender Extremities: Warm, Perfused Medical Decision Making Data Points Result Diagram: 05/01/18 0546 05/01/18 0546 Assessment and Plan Problems: (1) Anemia Status: Chronic Assessment & Plan: 05/01/18: She is admitted to the hospitalist service. They have given her 2 units of packed red blood cells and she has had a good response to this. Her hemoglobin is up to 11.5 this morning. It was down in the 9 range. Since she had a positive fecal occult blood testing conjunction with her anemia, we will go ahead and proceed with EGD and colonoscopy this afternoon. The hospitalist actually contacted me yesterday and so we started her bowel prep yesterday afternoon. I have explained this plan to the patient and she seems agreeable with it. I have explained the procedures to her in detail as well as the alternatives and the risks. She indicates her understanding of the PAR discussion and her questions have been answered. She would like to proceed with EGD and colonoscopy. (2) Positive fecal occult blood test Status: Acute Condition Stable Time Spent: < 30 min Venous Thromboembolism Antithrombotics Is Pt On Any Antithrombotics?: Yes (but will be held) Problem Qualifiers (1) Anemia: Anemia type: unspecified type Qualified Codes: D64.9 - Anemia, unspecified JENNY HERNANDEZ MD May 01, 2018 08:31
[2018-05-01] MEDS: amLODIPine BESYL(*) 5 MG TAB PO SCH (09:00)
[2018-05-01] MEDS: PREGABALIN 50 MG CAP PO SCH ×3 (09:31→21:23)
[2018-05-01] MEDS: ATORVASTATIN 40 MG TAB PO SCH (09:31)
[2018-05-01] MEDS: RANITIDINE HCL 150 MG TAB PO SCH ×2 (09:31→21:23)
[2018-05-01] MEDS: cloNIDine HCL 0.1 MG TAB PO SCH ×2 (09:32→21:23)
[2018-05-01] MEDS: ALLOPURINOL 300 MG TAB PO SCH (09:32)
[2018-05-01] MEDS: PANTOPRAZOLE SOD 40 MG IV VIAL IVP SCH ×2 (09:32→21:25)
[2018-05-01] MEDS: LUTEIN PO SCH ×2 (09:33→21:22)
[2018-05-01] MEDS: CARVEDILOL 6.25 MG TAB PO SCH ×2 (09:33→21:22)
[2018-05-01] MEDS: ZEAXANTHIN PO SCH ×2 (09:33→21:22)
--- NOTE | 2018-05-01 10:39 | Hospitalist Progress Note ---
Subjective Progress Notes Subjective She was admitted with GI Bleed and dehydration. She has no complaints this morning. She had no acute events overnight. Patient Complains of: Cardiovascular: No: Chest Pain Respiratory: No: Shortness of Breath Physical Exam Vital Signs Date Time Temp Pulse Resp B/P (MAP) Pulse Ox O2 Delivery O2 Flow Rate FiO2 05/01/18 08:00 90 Nasal Cannula 2.0 05/01/18 07:59 98.0 85 20 138/82 (100) Intake and Output 05/02/18 01:00 Intake Total 760 ml Balance 760 ml Intake Oral 760 ml # Voids 1 # Bowel Movements 1 General Appearance: Alert, Awake, No Acute Distress, Afebrile Neuro: No Gross deficits Cardiovascular: Regular Rate and Rhythm Respiratory: No Respiratory Distress, Other (diminished lung sounds) GI: Soft and Non-Tender Psych: Alert & Oriented X3, Appropriate Mood & Affect Result Diagram: 05/01/18 0546 05/01/18 0546 Assessment and Plan Problems: (1) Torsades de pointes Status: Acute Assessment & Plan: Short burst 04/29. She did get magnesium and Levaquin stopped. AICD did not fire. Will continue monitoring. Cardiology interrogated pacemaker, made some adjustments. (2) Symptomatic anemia Status: Acute Assessment & Plan: She has had a drop in her Hgb/Hct over past few weeks. She did have a heme positive stool as an outpatient a couple of days ago and re- check here is positive. Will continue to hold her aspirin, Plavix, and Eliquis. Erythropoietin level is 183. Watch labs closely. She was transfused 2 units PRBC (to keep Hgb >10) as she has significant cardiac disease. Dr. Frederick plans EGD and Colonoscopy today. We will need to restart her anti-platelet and anticoagulation soon. (3) Chronic diastolic heart failure Status: Chronic Assessment & Plan: It appears she may have a mild exacerbation, which could be related to the anemia as well. Will transfuse as noted above due to her significant concomitant illnesses. Repeat echocardiogram pending (most recent approximately 6 months ago with EF ~57%/pulmonary hypertension). (4) CAD (coronary artery disease) Status: Chronic Assessment & Plan: She appears reasonably stable from this standpoint. Will need to hold her aspirin and Plavix initially, but will need to consider re- starting very soon as she had PTCA with stenting just a little over 2 months ago. Will continue her beta kait and statin therapy. (5) Persistent atrial fibrillation Status: Chronic Assessment & Plan: She has been anticoagulated with Eliquis. Will need to hold acutely due to potential for GI bleeding. (6) Insulin-requiring or dependent type II diabetes mellitus Status: Chronic Assessment & Plan: ADA diet, monitor glucoses, continue insulin regimen, use SSI as needed. (7) CKD (chronic kidney disease), stage III Status: Chronic Assessment & Plan: Her creatinine is 1.0 today, which is near her baseline. Will monitor. (8) UTI (urinary tract infection) Status: Acute Assessment & Plan: She is asymptomatic of UTI symptoms and the sample appears to be contaminated (many squamous epis). Culture notes contamination. She did get a dose of Levaquin, but it has been stopped due to short burst of Torsades/V -tach. Since she has no symptoms, fever or elevated WBC, we will hold off on antibiotics at this time. If she develops symptoms, we will repeat a UA at that time. Exam Sepsis Risk: No Definite Risk YULI MOORE [employer] COMMANDING OFFICER May 01, 2018 10:39
[2018-05-01] MEDS ORDERED: NORMOSOL R SOLN(*) 1000 ML BAG 1,000 ML IV ONE ×2 (11:15→15:55)
[2018-05-01] MEDS: INSULIN HUM LISPRO 100 UN/ML 3 ML VIAL SUBQ PRN ×2 (12:26→21:25)
[2018-05-01] MEDS ORDERED: KETAMINE HCL 200 MG/20 ML MDV ONE (16:32)
[2018-05-01] MEDS ORDERED: LIDOCAINE MPF 1% 5 ML VIAL ONE (16:36)
[2018-05-01] MEDS ORDERED: PROPOFOL EMUL(*) 10MG/ML 20 ML 40 ML ONE (16:36)
[2018-05-02] MEDS ORDERED: FUROSEMIDE 20 MG/2 ML VIAL IVP ONE (00:05)
[2018-05-02 03:49] VITALS: BP 135/84
[2018-05-02 06:35] LABS: PLATELET COUNT, AUTOMATED 99 K/uL (150-450)
--- NOTE | 2018-05-02 08:17 | General Surgery Progress Note ---
Subjective Progress Notes Subjective No complaints this morning. Physical Exam Vital Signs Date Time Temp Pulse Resp B/P (MAP) Pulse Ox O2 Delivery O2 Flow Rate FiO2 05/02/18 03:57 73 05/02/18 03:49 98.4 16 135/84 (101) 97 Nasal Cannula 3.0 General Appearance: Alert, Awake, No Acute Distress, Afebrile GI: Soft and Non-Tender Extremities: Warm, Perfused Result Diagram: 05/02/18 0622 05/02/18 06 Assessment and Plan Problems: (1) Anemia Status: Chronic Assessment & Plan: 05/01/18: She is admitted to the hospitalist service. They have given her 2 units of packed red blood cells and she has had a good response to this. Her hemoglobin is up to 11.5 this morning. It was down in the 9 range. Since she had a positive fecal occult blood testing conjunction with her anemia, we will go ahead and proceed with EGD and colonoscopy this afternoon. The hospitalist actually contacted me yesterday and so we started her bowel prep yesterday afternoon. I have explained this plan to the patient and she seems agreeable with it. I have explained the procedures to her in detail as well as the alternatives and the risks. She indicates her understanding of the PAR discussion and her questions have been answered. She would like to proceed with EGD and colonoscopy. 05/02/18: EGD and colonoscopy completed without problems. Mild gastritis but no PUD, IBD, neoplasm or signs of chronic blood loss. OK to restart blood thinners and will need to follow H/H over long chain beamer. If H/H continues to trend down, may need SBFT and/or small bowel capsule endoscopy as well as hematology consultation to look for other causes of anemia. (2) Positive fecal occult blood test Status: Acute Condition Stable. Time Spent: < 30 min Exam Sepsis Risk: No Definite Risk Problem Qualifiers (1) Anemia: Anemia type: unspecified type Qualified Codes: D64.9 - Anemia, unspecified JENNY HERNANDEZ MD May 02, 2018 08:17
[2018-05-02 08:50] VITALS: BP 136/74
[2018-05-02] MEDS: ALLOPURINOL 300 MG TAB PO SCH (09:04)
[2018-05-02] MEDS: RANITIDINE HCL 150 MG TAB PO SCH ×2 (09:04→21:32)
[2018-05-02] MEDS: cloNIDine HCL 0.1 MG TAB PO SCH ×2 (09:04→21:32)
[2018-05-02] MEDS: amLODIPine BESYL(*) 5 MG TAB PO SCH ×2 (09:04→09:09)
[2018-05-02] MEDS: CARVEDILOL 6.25 MG TAB PO SCH ×2 (09:04→21:33)
[2018-05-02] MEDS: ATORVASTATIN 40 MG TAB PO SCH (09:04)
[2018-05-02] MEDS: ZEAXANTHIN PO SCH ×2 (09:05→21:33)
[2018-05-02] MEDS: PANTOPRAZOLE SOD 40 MG IV VIAL IVP SCH ×2 (09:05→21:33)
[2018-05-02] MEDS: PREGABALIN 50 MG CAP PO SCH ×3 (09:05→21:32)
[2018-05-02] MEDS: LUTEIN PO SCH ×2 (09:05→21:33)
[2018-05-02] MEDS: INS HUMAN ISOPH/INS REG 70/30 100 UNIT/ML 3ML VIAL SUBQ SCH ×2 (09:06→18:39)
[2018-05-02] MEDS ORDERED: FUROSEMIDE 40 MG TAB PO SCH (10:20)
[2018-05-02 10:56] VITALS: BP 137/81
[2018-05-02] MEDS: APIXABAN 2.5 MG TABLET PO SCH ×2 (11:59→21:32)
[2018-05-02] MEDS: FUROSEMIDE 40 MG/4 ML VIAL IVP SCH ×2 (12:00→15:28)
--- NOTE | 2018-05-02 12:13 | Hospitalist Progress Note ---
Subjective Progress Notes Subjective She reports mild improvement in tiredness from admission. She did have worsening SOB o/n and received IV Lasix. Physical Exam Vital Signs Date Time Temp Pulse Resp B/P (MAP) Pulse Ox O2 Delivery O2 Flow Rate FiO2 05/02/18 10:56 99.0 79 16 137/81 (99) 97 Nasal Cannula 3.0 Intake and Output 05/03/18 07:00 Intake Total 50 ml Balance 50 ml Intake Oral 50 ml General Appearance: Alert, Awake Respiratory: Other (Bibasilar insp crackles. Mild wob) Extremities: Edema (RLE gaviria with 1 + pitting, which she reports happens intermittently when she gets edema) Result Diagram: 05/02/1862105/02/18621 Assessment and Plan Problems: (1) Symptomatic anemia Status: Acute Assessment & Plan: She has had a drop in her Hgb/Hct over past few weeks. She did have a heme positive stool as an outpatient a couple of days ago and re- check here is positive. Erythropoietin level is 183. She was transfused 2 units PRBC (to keep Hgb >10) as she has significant cardiac disease. EGD and Colonoscopy only showed mild gastritis. Her aspirin, Plavix, and Eliquis have been held. Dr. Narvaez (Cardiology) said the patient could go on either ASA/ Plavix or Eliquis/Plavix. . Will restart Eliquis and Plavix because of the gastritis. She was on ranitidine and now on Protonix/Rantidine. (2) Torsades de pointes Status: Acute Assessment & Plan: Noted on telemetry on 04/29. Cardiology interrogated pacemaker, and think that it was artifact. She did get magnesium and Levaquin stopped. AICD did not fire. Will continue monitoring. (3) Chronic diastolic heart failure Status: Chronic Assessment & Plan: It appears she may have a mild exacerbation, secondary to getting transfusions. She will get scheduled IV Lasix. Repeat echocardiogram pending (most recent approximately 6 months ago with EF ~57%/pulmonary hypertension). (4) CAD (coronary artery disease) Status: Chronic Assessment & Plan: She appears reasonably stable from this standpoint. Continue her beta kait and statin therapy. Restarting Eliquis with Plavix as above. (5) Persistent atrial fibrillation Status: Chronic Assessment & Plan: Rate controlled with Coreg and is intermittently paced. She has been anticoagulated with Eliquis. See above. (6) Insulin-requiring or dependent type II diabetes mellitus Status: Chronic Assessment & Plan: ADA diet, monitor glucoses, continue insulin regimen, use SSI as needed. (7) CKD (chronic kidney disease), stage III Status: Chronic Assessment & Plan: Her creatinine is 1.1 today, which is near her baseline. Will monitor. (8) UTI (urinary tract infection) Status: Acute Assessment & Plan: She is asymptomatic of UTI symptoms and the sample appears to be contaminated (many squamous epis). Culture notes contamination. She did get a dose of Levaquin, but it has been stopped due to short burst of Torsades/V -tach. Since she has no symptoms, fever or elevated WBC, we will hold off on antibiotics at this time. If she develops symptoms, we will repeat a UA at that time. Exam Sepsis Risk: No Definite Risk BENJAMIN HOLLY MD May 02, 2018 12:13
[2018-05-02] MEDS: CLOPIDOGREL BISULFATE 75MG TAB PO SCH (13:35)
[2018-05-02 19:40] VITALS: BP 115/73
[2018-05-02 21:36] VITALS: BP 134/68
[2018-05-02] MEDS: INSULIN HUM LISPRO 100 UN/ML 3 ML VIAL SUBQ PRN (21:49)
[2018-05-02 23:32] VITALS: BP 127/71
[2018-05-03 03:06] VITALS: BP 135/75
[2018-05-03] MEDS: ACETAMINOPHEN 325 MG TAB PO PRN (03:12)
[2018-05-03 05:53] LABS: PLATELET COUNT, AUTOMATED 84 K/uL (150-450)
[2018-05-03 07:39] VITALS: BP 127/91
[2018-05-03] MEDS: INS HUMAN ISOPH/INS REG 70/30 100 UNIT/ML 3ML VIAL SUBQ SCH (08:35)
[2018-05-03] MEDS: PANTOPRAZOLE SOD 40 MG IV VIAL IVP SCH (09:00)
[2018-05-03] MEDS: RANITIDINE HCL 150 MG TAB PO SCH (09:22)
[2018-05-03] MEDS: FUROSEMIDE 40 MG/4 ML VIAL IVP SCH (09:22)
[2018-05-03] MEDS: ALLOPURINOL 300 MG TAB PO SCH (09:22)
[2018-05-03] MEDS: ATORVASTATIN 40 MG TAB PO SCH (09:23)
[2018-05-03] MEDS: LUTEIN PO SCH (09:23)
[2018-05-03] MEDS: ZEAXANTHIN PO SCH (09:23)
[2018-05-03] MEDS: CARVEDILOL 6.25 MG TAB PO SCH (09:23)
[2018-05-03] MEDS: PREGABALIN 50 MG CAP PO SCH (09:23)
[2018-05-03] MEDS: APIXABAN 2.5 MG TABLET PO SCH (09:23)
[2018-05-03] MEDS: CLOPIDOGREL BISULFATE 75MG TAB PO SCH (09:23)
[2018-05-03] MEDS: cloNIDine HCL 0.1 MG TAB PO SCH (09:23)
[2018-05-03] MEDS ORDERED: FUROSEMIDE 40 MG TAB PO SCH (09:55)
[2018-05-03 11:13] VITALS: Ht 157.5 cm; Wt 95.1 kg
--- NOTE | 2018-05-03 11:21 | Medical Nutrition Therapy ---
Nutritional Education Nutrition Education Topic: Diabetic Nutrition, Congested Heart Failure Learning Readiness: Not Interested Teaching Recipient: Patient Nutrition Counseling: Discussed CHF and ADA diet with pt. Pt states has macular degeneration and has someone to go to the store with her. Pt states she does look at the Na content of foods and tries to limit high Na foods. Encoruaged pt to consider foods over 300mg Na/serving as high NA. Discussed lower Na versions of common foods. Pt states for her diabetes, she eats what she wants and adjust the insulin as needed. Pt was not interested in diet education for diabetes or CHF. Handout on CHF was left to assist her helper in identifying lower Na foods. AMINAH MARTINES May 03, 2018 11:21
[2018-05-03] MEDS ORDERED: PANT40TA65 PO (12:53)
--- NOTE | 2018-05-03 13:14 | Hospitalist Depart ---
Discharge Summary Reason for Hosp/Final Diag: (1) Symptomatic anemia Status: Resolved Hospital Course & Plan: She has had a drop in her Hgb/Hct over past few weeks. She did have a heme positive stool as an outpatient and re-check was positive. She was transfused 2 units PRBC (to keep Hgb >10) as she has significant cardiac disease. EGD and Colonoscopy showed mild gastritis. . Will restart Eliquis and Plavix, cardiology believed ASA may contribute to gastritis and were ok with stopping it. She was on ranitidine and was switched to BID Protonix. Follow up with PCP for titration of PPI. (2) Chronic diastolic heart failure Status: Chronic Hospital Course & Plan: Mild exacerbation, secondary to getting transfusions. She received IV Lasix. Repeat echocardiogram primarily unchanged with Grade III diastolic dysfunction and moderate tricuspid regurgitation. Resumed home Lasix dosing on dc. (3) CAD (coronary artery disease) Status: Chronic Hospital Course & Plan: Continue her beta kait and statin therapy. Restarting Eliquis with Plavix as above. (4) Persistent atrial fibrillation Status: Chronic Hospital Course & Plan: Rate controlled with Coreg and is intermittently paced. She has been anticoagulated with Eliquis. (5) Insulin-requiring or dependent type II diabetes mellitus Status: Chronic Hospital Course & Plan: ADA diet, monitor glucose, continue insulin regimen. (6) CKD (chronic kidney disease), stage III Status: Chronic Hospital Course & Plan: Her creatinine is 1.1 today, which is near her baseline. Will monitor. (7) Asymptomatic bacteriuria Hospital Course & Plan: UA appeared to be infected but was poor sample based on many epithelial cells in addition to bacteria. Denied symptoms therefor no repeat UA was done as asymptomatic bacteriuria does not need treatment. Departure Weight (Pounds): 209 Weight (Ounces): 9.0 Result Diagram: 05/03/1852705/03/18527 Condition: Improved Discharge: Home, Home Health Home Health RN Follow Up For: Nursing Assessment Home Health SUPPLIER ENGINEER Follow Up For: ADL Assistance Discharge Instructions Home Meds Active Scripts Pantoprazole Sodium (PANTOPRAZOLE SODIUM) 40 Mg Tablet., 40 MG PO BID for 30 Days, #60 TAB.SR Prov:TRUNG LOPEZ DO 05/03/18 Ferrous Sulfate (IRON) 325 Mg Tablet, 1 TAB PO BID, #60 TAB 0 Refills Prov:SANTOS HAMLIN APRN [employer] ATTENDANT-C 04/28/18 Pregabalin (LYRICA) 50 Mg Capsule, 1 CAP PO TID, #90 CAPSULE 5 Refills Prov:SANTOS HAMLIN APRN [employer] ATTENDANT-C 03/22/18 Amlodipine Besylate (AMLODIPINE BESYLATE) 10 Mg Tablet, 1 TAB PO QDAY, #90 TAB 1 Refill Prov:SANTOS HAMLIN APRN S[employer] B[employer] ATTENDANT-C 03/09/18 Furosemide (FUROSEMIDE) 40 Mg Tablet, 1 TAB PO BID, #180 TAB 2 Refills Prov:SANTOS HAMLIN APRN [facility] 01/25/18 [Diabetic Supplies] No Conflict Check, 1 [facility] 2-3XD, #300 EACH Prov:SANTOS HAMLIN APRN S[employer] BOX ATTENDANT-C 12/08/17 Allopurinol (Allopurinol) 300 Mg Tablet, 1 TAB PO QDAY, #90 TAB 2 Refills Prov:SANTOS HAMLIN APRN [facility] 10/13/17 Atorvastatin Calcium (ATORVASTATIN CALCIUM) 40 Mg Tablet, 1 TAB PO QDAY, #90 TAB 2 Refills Prov:SANTOS HAMLIN APRN [facility] 08/12/17 Carvedilol (CARVEDILOL) 12.5 Mg Tablet, 1 TAB PO BID, #180 TAB 3 Refills Prov:SANTOS HAMLIN APRN [facility] 05/30/17 Reported Medications Potassium Chloride (POTASSIUM CHLORIDE) 20 Meq Tab.er.prt, 20 MEQ PO QDAY 04/29/18 Hum Insulin Nph/Reg Insulin Hm (NOVOLIN 70-30 100 UNIT/ML VIAL) 100 Unit/1 Ml Vial, 50 UNIT SQ BID, VIAL 50 units in am, 30 units HS 04/29/18 Clonidine Hcl (CLONIDINE HCL) 0.1 Mg Tablet, 0.1 MG PO BID, TAB 0.5 tab BID 04/29/18 Calcium Polycarbophil (FIBERCON) 625 Mg Tablet, 625 MG PO 04/28/18 Clopidogrel Bisulfate (CLOPIDOGREL) 75 Mg Tablet, 1 TAB PO QDAY, TAB 02/09/18 Apixaban (ELIQUIS) 5 Mg Tablet, 5 MG PO BID 11/01/17 Nitroglycerin (NITROGLYCERIN) 0.4 Mg Tab.subl, 0.4 MG SL Q5MIN Y for CHEST PAIN 12/09/16 Vit C/E/Zn/Coppr/Lutein/Zeaxan (Preservision Areds 2 Softgel) 1 Each Capsule, 1 CAP PO BID 12/09/16 Calcium Carb & Cit/Vitamin D3 (CALCIUM + D3 ER TABLET) 1 Each Tablet.er, 1 EACH PO QDAY 12/09/16 Oxygen (OXYGEN) 2 L Inha, 2 L INH CONTINUOUS, L 02/13/15 Docusate Sodium (Colace 100 Mg) 100 Mg Cap, 1 CAP PO BID, 0 Refills 03/31/12 Discontinued Reported Medications Ranitidine Hcl (RANITIDINE HCL) 150 Mg Capsule, 1 CAP PO QDAY, CAPSULE 12/09/16 Aspirin (ASPIRIN) 81 Mg Tab.chew, 1 TAB PO QDAY, TAB.CHEW 06/02/15 Potassium Chloride (KLOR-CON M10) 10 Meq Tab.er.prt, 10 MEQ PO QDAY 07/01/17 Oxybutynin Chloride (DITROPAN XL) 10 Mg Tab.er.24, 10 MG PO QDAY, TAB 07/11/17 Carboxymethylcellulose Sodium (LUBRICANT EYE DROPS) 1 Each Droperette, 1 DROP OP Q4H 12/09/16 Discontinued Scripts Clonidine Hcl (CLONIDINE HCL) 0.1 Mg Tablet, 1 TAB PO BID, #180 TAB 1 Refill Prov:SANTOS HAMLIN APRNP-C 04/24/18 Hum Insulin Nph/Reg Insulin Hm (NOVOLIN 70-30 100 UNIT/ML VIAL) 100 Unit/1 Ml Vial, 55-60 UNIT SQ BID, #3 VIAL 12 Refills 60 units every morning and 55 units every evening Prov:SANTOS HAMLIN APRNP-C 12/23/17 Ferrous Sulfate (FERROUS SULFATE) 324 Mg Tablet.dr, 324 MG PO DAILY, #90 TAB 1 Refill Prov:CHARLES GONSALVES MD 04/20/18 Clotrimazole (CLOTRIMAZOLE) 10 Mg Troc, 1 EACH PO 5XD, #70 ALBERTINA 0 Refills Prov:SANTOS HAMLIN APRNP-C 03/21/18 Ipratropium/Albuterol Sulfate (IPRAT-ALBUT 0.5-3(2.5) MG/3 ML) 3 Ml Ampul.neb, 1 VIAL IH Q6H Y for SHORTNESS OF BREATH, #30 VIAL 2 Refills Prov:SANTOS HAMLIN APRN-C 12/23/17 Lidocaine (Lidocaine) 5 % Adh..patch, 1 PATCH TOP DAILY, #30 PATCH [address] for 12 hours then remove and leave off for 12 hours prior to replacing with a new patch Prov:SANTOS HAMLIN APRN-C 09/12/17 Diet: Diabetic, 2 Gram Sodium (NA) Activity: As Tolerated Venous Thromboembolism Antithrombotics Is Pt On Any Antithrombotics?: Yes (but will be held) Srof-ib-Arek Certification Face to Face Home Health Certification Institutional Provider conducted the [id number] encounter. Electronic Undersigning Physician Certifies Home Health. I certify that the patient has been under my care and that I had a [id number] encounter that meets the physician [id number] encounter requirements with this patient. This patient is home-bound due to safety issues and continues to require assistance with ADL's. I certify that based on my findings, that Nursing, Aides and the following Home Health services are medically necessary: Medical Necessity: Nursing Date Face to Face Conducted: May 03, 2018 TRUNG LOPEZ DO May 03, 2018 13:14
== END 2018-05-03 14:00 | disposition home health service (06) | DRG 811 ==
LOC: ER 15:44 → MED 19:31
PROVIDERS: ADMIT Internal Medicine; ATTEND Internal Medicine
PROC: 30233N1 Transfusion of Nonautologous Red Blood Cells into Peripheral Vein, Percutaneous Approach (ICD-10-PCS; 2018-04-30)
PROC: 0DJ08ZZ Inspection of Upper Intestinal Tract, Via Natural or Artificial Opening Endoscopic (ICD-10-PCS; principal; 2018-05-01 17:13)
PROC: 0DJD8ZZ Inspection of Lower Intestinal Tract, Via Natural or Artificial Opening Endoscopic (ICD-10-PCS; 2018-05-01 17:13)
DX: D50.0 Iron deficiency anemia secondary to blood loss (chronic) (principal); I50.33 Acute on chronic diastolic (congestive) heart failure; I48.1 Persistent atrial fibrillation; I13.0 Hypertensive heart and chronic kidney disease with heart failure and stage 1 through stage 4 chronic kidney disease, or unspecified chronic kidney disease; K57.30 Diverticulosis of large intestine without perforation or abscess without bleeding; E11.22 Type 2 diabetes mellitus with diabetic chronic kidney disease; K29.70 Gastritis, unspecified, without bleeding; I25.10 Atherosclerotic heart disease of native coronary artery without angina pectoris; E87.5 Hyperkalemia; J44.9 Chronic obstructive pulmonary disease, unspecified; E11.40 Type 2 diabetes mellitus with diabetic neuropathy, unspecified; M10.9 Gout, unspecified; E86.0 Dehydration; G47.33 Obstructive sleep apnea (adult) (pediatric); K21.9 Gastro-esophageal reflux disease without esophagitis; N18.3 Chronic kidney disease, stage 3 (moderate); R82.71 Bacteriuria; Z99.81 Dependence on supplemental oxygen; Z88.0 Allergy status to penicillin; Z88.5 Allergy status to narcotic agent; Z88.8 Allergy status to other drugs, medicaments and biological substances; Z79.4 Long term (current) use of insulin; Z87.891 Personal history of nicotine dependence; Z79.01 Long term (current) use of anticoagulants; Z79.82 Long term (current) use of aspirin; Z95.810 Presence of automatic (implantable) cardiac defibrillator; Z95.5 Presence of coronary angioplasty implant and graft
CPT/HCPCS: 36415; 36416; 36430; 74176; 76705; 81001; 82040; 82247; 82274; 82310; 82374; 82435; 82565; 82668; 82947; 82948; 83036; 83516; 83735; 83880; 84075; 84132; 84155; 84295; 84443; 84450; 84460; 84484; 84520; 85025; 86677; 86850; 86900; 86901; 86920; 87088; 93005; 93306; 99284; C9113; J1940; J2001; J2704; J3475; J3490; J7030; J7040; P9016

== ENCOUNTER → 2018-04-28 | Outpatient (CLI) | payer MEDICARE, MEDICAID ==
[2017-10-22 10:24] VITALS: BMI 36.1
[~2018-04-28] MED LIST changes: -AMIO200T47 PO; +AMIO200T49 PO; +CALC625T57 PO; +FERR325T24 PO; -INDO-1 PO; +INDO-21 PO; +IPRA3AMP10 IH; -IPRA3AMP21 IH
[2018-04-28 14:46] LABS: PLATELET COUNT, AUTOMATED 101 K/uL (150-450)
== END ==
LOC: LAB 14:33
PROVIDERS: ATTEND Nurse Practitioner Family
DX: I12.9 Hypertensive chronic kidney disease with stage 1 through stage 4 chronic kidney disease, or unspecified chronic kidney disease (principal); N18.3 Chronic kidney disease, stage 3 (moderate); E11.9 Type 2 diabetes mellitus without complications
CPT/HCPCS: 36415; 82040; 82247; 82310; 82374; 82435; 82565; 82947; 83036; 84075; 84132; 84155; 84295; 84443; 84450; 84460; 84520; 85025

== ENCOUNTER → 2018-05-08 | Outpatient (CLI) | payer MEDICARE, MEDICAID ==
[2018-04-29 10:58] VITALS: BMI 37.5
[~2018-05-08] MED LIST changes: +CALC625T57 PO; +PANT40TA65 PO
[2018-05-08 12:24] LABS: PLATELET COUNT, AUTOMATED 85 K/uL (150-450)
== END ==
LOC: LAB 11:19
PROVIDERS: ATTEND Nurse Practitioner Family
DX: D64.9 Anemia, unspecified (principal); I50.32 Chronic diastolic (congestive) heart failure; N18.3 Chronic kidney disease, stage 3 (moderate)
CPT/HCPCS: 36415; 82040; 82247; 82310; 82374; 82435; 82565; 82947; 83880; 84075; 84132; 84155; 84295; 84450; 84460; 84520; 85025

== ENCOUNTER → 2018-05-16 | Outpatient (CLI) | payer MEDICARE, MEDICAID ==
[2018-04-29 10:58] VITALS: BMI 37.5
[2018-05-16 12:12] LABS: PLATELET COUNT, AUTOMATED 83 K/uL (150-450)
--- NOTE | 2018-05-16 14:32 | RADIOLOGY IMAGING REPORT ---
FACILITY: [facility] PATIENT NAME: Eugenia Rushing : 1945 MR: [id number] V: [id number] EXAM DATE: ORDERING PHYSICIAN: SANTOS HAMLIN TECHNOLOGIST: Location: [facility] Patient: Eugenia Rushing : 1945 Visit/Account:[id number] Date of Sevice: 05/16/2018 Exam type: ACUTE ABDOMEN SERIES 3 VIEW History: Abdomen pain, constipation and diarrhea Comparison: KUB April 22, [address] abdomen and pelvis April 28, 2018. And chest PA and lateral Febru riana2017 Findings: Bowel gas pattern is grossly nonspecific. There are surgical clips in the right upper quadrant of ab domen. Extensive spondylotic changes lumbar spine are present. Numerous calcifications project over the lower pole the left kidney. Extensive vascular calcifications are present. There are small bilateral pleural effusions, right greater than left. There is fullness of the pulmo nary vascular markings suggesting mild pulmonary edema. Cardiac silhouette is enlarged but unchanged . Dual lead cardiac pacemaker again noted. IMPRESSION: 1. By gas pattern is grossly nonspecific Small bilateral pleural effusions, right greater than left and fullness of the pulmonary vascular mar kings suggesting mild pulmonary edema Cardiomegaly unchanged Report Dictated By: Negra Mike MD at 05/16/2018 2:24 PM Report E-Signed By: Negra Mike MD at 05/16/2018 2:28 PM WSN:[email or web address]
== END ==
LOC: LAB 11:44
PROVIDERS: ATTEND Nurse Practitioner Family
DX: I51.7 Cardiomegaly (principal); J90 Pleural effusion, not elsewhere classified; R10.9 Unspecified abdominal pain
CPT/HCPCS: 36415; 74022; 82040; 82247; 82310; 82374; 82435; 82565; 82947; 84075; 84132; 84155; 84295; 84443; 84450; 84460; 84520; 85025

== ENCOUNTER → 2018-05-18 | Outpatient (CLI) | payer MEDICARE, MEDICAID ==
[2018-04-29 10:58] VITALS: BMI 37.5
[~2018-05-18] MED LIST changes: +LEVO250T55 PO
== END ==
LOC: LAB 09:41
PROVIDERS: ATTEND Nurse Practitioner Family
DX: N39.0 Urinary tract infection, site not specified (principal); B96.89 Other specified bacterial agents as the cause of diseases classified elsewhere
CPT/HCPCS: 81001; 87045; 87077; 87088; 87186; 87205; 87324; 87449

== ENCOUNTER → 2018-05-30 | Outpatient (CLI) | payer MEDICARE, MEDICAID ==
[2018-04-29 10:58] VITALS: BMI 37.5
[~2018-05-30] MED LIST changes: +BLOO-1511 MC; -POTA20PA10 PO; +POTA20PA31 PO
[2018-05-30 10:59] LABS: PLATELET COUNT, AUTOMATED 81 K/uL (150-450)
== END ==
LOC: LAB 10:14
PROVIDERS: ATTEND Nurse Practitioner Family
DX: I50.32 Chronic diastolic (congestive) heart failure (principal); D64.9 Anemia, unspecified; N18.3 Chronic kidney disease, stage 3 (moderate)
CPT/HCPCS: 36415; 82040; 82247; 82310; 82374; 82435; 82565; 82947; 83880; 84075; 84132; 84155; 84295; 84450; 84460; 84520; 85025

== ENCOUNTER → 2018-06-02 | Outpatient (CLI) | payer MEDICARE, MEDICAID ==
[2018-04-29 10:58] VITALS: BMI 37.5
== END ==
LOC: LAB 09:24
PROVIDERS: ATTEND Nurse Practitioner Family
DX: R35.0 Frequency of micturition (principal)
CPT/HCPCS: 81001; 87088

== ENCOUNTER → 2018-07-04 | Outpatient (CLI) | payer MEDICARE, MEDICAID ==
[2018-04-29 10:58] VITALS: BMI 37.5
[~2018-07-04] MED LIST changes: +AMLO-111 PO; +AMLO-113 PO; -AMLO-96 PO; -AMLO-99 PO; -MEPE50TA30 PO; +MEPE50TA41 PO; +NEED-601 MC
[2018-07-04 11:29] LABS: PLATELET COUNT, AUTOMATED 100 K/uL (150-450)
== END ==
LOC: LAB 11:04
PROVIDERS: ATTEND Nurse Practitioner Family
DX: D50.9 Iron deficiency anemia, unspecified (principal)
CPT/HCPCS: 36415; 82728; 83540; 83550; 85025

== ENCOUNTER → 2018-07-14 | Outpatient (CLI) | payer MEDICARE, MEDICAID ==
[2018-04-29 10:58] VITALS: BMI 37.5
[2018-07-14 14:02] LABS: PLATELET COUNT, AUTOMATED 74 K/uL (150-450)
== END ==
LOC: LAB 13:47
PROVIDERS: ATTEND Nurse Practitioner Family
DX: D64.9 Anemia, unspecified (principal)
CPT/HCPCS: 36415; 85025

== ENCOUNTER → 2018-08-04 | Outpatient (CLI) | payer MEDICARE, MEDICAID ==
[2018-04-29 10:58] VITALS: BMI 37.5
[~2018-08-04] MED LIST changes: +FLU180SY11 IM; -HYDR-4308 PO; +HYDR-654 PO
[2018-08-04 10:15] LABS: PLATELET COUNT, AUTOMATED 81 K/uL (150-450)
== END ==
LOC: LAB 09:23
PROVIDERS: ATTEND Nurse Practitioner Family
DX: K92.2 Gastrointestinal hemorrhage, unspecified (principal); D64.9 Anemia, unspecified; E11.9 Type 2 diabetes mellitus without complications; N18.3 Chronic kidney disease, stage 3 (moderate)
CPT/HCPCS: 36415; 82040; 82247; 82310; 82374; 82435; 82465; 82565; 82728; 82947; 83036; 83540; 83550; 83718; 84075; 84132; 84155; 84295; 84450; 84460; 84478; 84520; 85025

== ENCOUNTER → 2018-08-24 | Outpatient (CLI) | payer MEDICARE, MEDICAID ==
[2018-04-29 10:58] VITALS: BMI 37.5
[2018-08-24 09:55] LABS: PLATELET COUNT, AUTOMATED 80 K/uL (150-450)
== END ==
LOC: LAB 09:34
PROVIDERS: ATTEND Nurse Practitioner Family
DX: D64.9 Anemia, unspecified (principal)
CPT/HCPCS: 36415; 82607; 82728; 82746; 83540; 83550; 85025

== ENCOUNTER → 2018-09-25 | Outpatient (CLI) | payer MEDICARE, MEDICAID ==
[2018-04-29 10:58] VITALS: BMI 37.5
[2018-09-25 14:18] LABS: PLATELET COUNT, AUTOMATED 89 K/uL (150-450)
== END ==
LOC: LAB 13:50
PROVIDERS: ATTEND Nurse Practitioner Family
DX: K92.2 Gastrointestinal hemorrhage, unspecified (principal); D64.9 Anemia, unspecified; R71.8 Other abnormality of red blood cells; N18.3 Chronic kidney disease, stage 3 (moderate); R25.2 Cramp and spasm
CPT/HCPCS: 36415; 82040; 82247; 82310; 82374; 82435; 82565; 82607; 82728; 82746; 82947; 83540; 83550; 83735; 84075; 84132; 84155; 84295; 84450; 84460; 84520; 85025

== ENCOUNTER 2018-10-19 12:24 | Emergency (ER) | payer MEDICARE, MEDICAID ==
[2018-04-29 10:58] VITALS: Wt 95.1 kg
--- NOTE | 2018-10-19 13:02 | EKG ---
FACILITY: [facility] PATIENT NAME: SHANTE ROME : [id number] MR: [id number] V: [id number] EXAM DATE: ORDERING PHYSICIAN: RAFA STONE TECHNOLOGIST: ARNOLD Cui Reason : REPIRATORY Blood Pressure : / mmHG Vent. Rate : 095 BPM Atrial Rate : 147 BPM P-R Int : 000 ms QRS Dur : 114 ms QT Int : 376 ms P-R-T Axes : 000 -69 021 degrees QTc Int : 472 ms Atrial fibrillation Left axis deviation Nonspecific interventricular conduction delay Abnormal ECG Confirmed by JOSE E MANSFIELD ([id number]) on 10/19/2018 3:56:14 PM Referred By: BERTHA Confirmed By:JOSE E MANSFIELD
[2018-10-19 13:10] LABS: PLATELET COUNT, AUTOMATED 105 K/uL (150-450)
--- NOTE | 2018-10-19 13:28 | RADIOLOGY IMAGING REPORT ---
FACILITY: [facility] PATIENT NAME: Eugenia Rushing : 1945 MR: [id number] V: [id number] EXAM DATE: ORDERING PHYSICIAN: RAFA STONE TECHNOLOGIST: Location: [facility] Patient: Eugenia Rushing : 1945 Visit/Account:[id number] Date of Sevice: 10/19/2018 CHEST PA AND LAT History: dyspnea FINDINGS: Comparison studies: Comparison radiographs 10/12/2018 and November 21, 2017. Tubes and Lines: None. Lungs and pleura: There is very subtle increased pulmonary interstitium at the right lung base. Mediastinum: normal. Cardiac silhouette: Cardiac silhouette borderline enlarged. Pacemaker and TAPVR unchanged. Osseous structures: Unremarkable for age . IMPRESSION: Very subtle asymmetric congestive heart failure versus early developing right lower lobe infiltrate Report Dictated By: Ernst Valdez MD at 10/19/2018 1:21 PM Report E-Signed By: Ernst Valdez MD at 10/19/2018 1:24 PM WSN:[email or web address]
--- NOTE | 2018-10-19 13:42 | ER Report ---
History and Physical Time Seen By MD: 12:35 Hx. of Stated Complaint: SOB SEV DAYS, HPI/ROS CHIEF COMPLAINT: shortness of breath HISTORY OF PRESENT ILLNESS: 73 f presents with shortness of breath that has been gradually worsening x at least 3 days, with significantly increased fatigue. She was seen here recently and dx'd with presumptive viral illness, but has had increasing fatigue and dyspnea. Dyspnea is mild-moderate at rest, slightly worse with exertion but pt admits she has been mostly sleeping. No chest pain, no noted fevers, non productive cough, no vomiting, no change in urination, no leg swelling or pain, no recent travel, no abx. REVIEW OF SYSTEMS: Constitutional: No fever, no chills. Eyes: No discharge. ENT: No sore throat. Cardiovascular: No chest pain, no palpitations. Respiratory: above Gastrointestinal: No abdominal pain, no vomiting. Genitourinary: no dysuria Musculoskeletal: No back pain. Skin: No rashes. Neurological: No headache. Remainder of the 14 system rev: Yes Allergies: Coded Allergies: Penicillins (Verified Allergy, Intermediate, HIVES, 10/12/18) codeine (Verified Allergy, Intermediate, HIVES, 10/12/18) lisinopril (Verified Allergy, Intermediate, ITCHING, RASH, 10/12/18) Iodinated Contrast- Oral and IV Dye (Verified Allergy, Unknown, 10/12/18) fluconazole (Verified Adverse Reaction, Intermediate, DIARRHEA, 10/12/18) hydromorphone HCl (Verified Adverse Reaction, Intermediate, NAUSEA/VOMIT ING. "HEAD SPINNING", 10/12/18) Home Meds Active Scripts Azithromycin (ZITHROMAX) 250 Mg Tablet, 1 TAB PO QDAY for 4 Days, #4 TAB Prov:RAFA STONE MD 10/19/18 Clonidine Hcl (CLONIDINE HCL) 0.1 Mg Tablet, 0.5 TAB PO BID, #90 TAB 0 Refills 0.5 mg tab BID Prov:SANTOS HAMLIN APRN 10/18/18 Pregabalin (LYRICA) 50 Mg Capsule, 1 CAP PO TID, #90 CAPSULE 5 Refills Prov:SANTOS HAMLIN APRN 09/26/18 Pantoprazole Sodium (PANTOPRAZOLE SODIUM) 40 Mg Tablet.dr, 1 TAB PO BID for 30 Days, #180 TAB.SR 0 Refills Prov:SANTOS HAMLIN APRN [employer]ELING MACHINE OPERATOR-C 08/07/18 Amlodipine Besylate (AMLODIPINE BESYLATE) 10 Mg Tablet, 1 TAB PO QDAY, #90 TAB 0 Refills Prov:SANTOS HAMLIN APRN [employer] PEELING MACHINE OPERATOR-C 08/07/18 Furosemide (FUROSEMIDE) 40 Mg Tablet, 1 TAB PO BID, #180 TAB 0 Refills Prov:SANTOS HAMLIN APRN [employer] PEELING MACHINE OPERATOR-C 08/07/18 Allopurinol (Allopurinol) 300 Mg Tablet, 1 TAB PO QDAY, #90 TAB 0 Refills Prov:SANTOS HAMLIN APRN [facility] 08/07/18 [place], Disposable (NEEDLES) 1 Each Dis.needle, SYR MC BID, #100 2 Refills Prov:SANTOS HAMLIN APRN [facility] 06/20/18 Carvedilol (CARVEDILOL) 12.5 Mg Tablet, 1 TAB PO BID, #180 TAB 3 Refills Prov:SANTOS HAMLIN APRN [facility] 06/07/18 Blood Sugar Diagnostic (GLUCOSE TEST STRIP) 1 Each Strip, 250 EACH MC 2-3XD, #250 STRIP 3 Refills Prov:SANTOS HAMLIN APRN [employer] PEELING MACHINE OPERATOR-C 06/01/18 Atorvastatin Calcium (ATORVASTATIN CALCIUM) 40 Mg Tablet, 1 TAB PO QDAY, #90 TAB 2 Refills Prov:SANTOS HAMLIN APRN [employer] PEELING MACHINE OPERATOR-C 05/16/18 Reported Medications Potassium Chloride (POTASSIUM CHLORIDE) 20 Meq Tab.er.prt, 20 MEQ PO QDAY 04/29/18 Hum Insulin Nph/Reg Insulin Hm (NOVOLIN 70-30 100 UNIT/ML VIAL) 100 Unit/1 Ml Vial, 50 UNIT SQ BID, VIAL 50 units in am, 30 units HS 04/29/18 Calcium Polycarbophil (FIBERCON) 625 Mg Tablet, 625 MG PO 04/28/18 Clopidogrel Bisulfate (CLOPIDOGREL) 75 Mg Tablet, 1 TAB PO QDAY, TAB 02/09/18 Nitroglycerin (NITROGLYCERIN) 0.4 Mg Tab.subl, 0.4 MG SL Q5MIN PRN for CHEST PAIN 12/09/16 Vit C/E/Zn/Coppr/Lutein/Zeaxan (Preservision Areds 2 Softgel) 1 Each Capsule, 1 CAP PO BID 12/09/16 Calcium Carb & Cit/Vitamin D3 (CALCIUM + D3 ER TABLET) 1 Each Tablet.er, 1 EACH PO QDAY 12/09/16 Oxygen (OXYGEN) 2 L Inha, 2 L INH CONTINUOUS, L 02/13/15 Docusate Sodium (Colace 100 Mg) 100 Mg Cap, 1 CAP PO BID, 0 Refills 03/31/12 Discontinued Reported Medications Clonidine Hcl (CLONIDINE HCL) 0.1 Mg Tablet, 0.1 MG PO BID, TAB 0.5 tab BID 04/29/18 Reviewed Nurses Notes: Yes Old Medical Records Reviewed: Yes Hx Smoking: Yes Smoking Status: Former Smoker Exposure to Second Hand Smoke?: No Hx Substance Use Disorder: No Hx Alcohol Use: No Constitutional Vital Sign - Last 24 Hours 10/19/18 10/19/18 10/19/18 10/19/18 12:24 12:32 12:32 12:39 Pulse ??? 92 92 Resp 18 B/P (MAP) 110/73 (85) 110/73 Pulse Ox 70 89 O2 Delivery Nasal Cannula 10/19/18 10/19/18 10/19/18 10/19/18 12:54 13:00 13:09 13:20 Pulse 91 ??? B/P (MAP) ???/??? (1665) 113/67 (82) Pulse Ox 91 10/19/18 10/19/18 10/19/18 10/19/18 13:24 13:39 13:40 13:48 Pulse 96 89 B/P (MAP) ???/??? (1665) 109/66 (80) Pulse Ox 90 90 10/19/18 10/19/18 10/19/18 10/19/18 13:54 14:00 14:09 14:20 Pulse 95 90 B/P (MAP) 105/58 (74) 112/54 (73) Pulse Ox 92 94 10/19/18 10/19/18 10/19/18 10/19/18 14:25 14:40 14:55 15:00 Pulse 94 88 91 B/P (MAP) 127/61 (83) 117/68 (84) Pulse Ox 92 94 92 10/19/18 10/19/18 10/19/18 10/19/18 15:10 15:20 15:25 15:40 Pulse 92 91 88 B/P (MAP) 109/74 (86) 107/73 (84) Pulse Ox 93 91 96 10/19/18 10/19/18 10/19/18 10/19/18 15:55 16:00 16:10 16:20 Pulse 99 ??? B/P (MAP) 123/86 (98) 114/79 (91) Pulse Ox 89 85 10/19/18 10/19/18 10/19/18 10/19/18 16:25 16:26 16:40 16:55 Temp 98.0 Pulse 92 85 83 B/P (MAP) 107/75 (86) Pulse Ox 91 93 92 10/19/18 10/19/18 10/19/18 10/19/18 17:00 17:10 17:20 17:25 Pulse 87 85 B/P (MAP) 111/80 (90) 125/78 (94) Pulse Ox 90 94 10/19/18 10/19/18 10/19/18 10/19/18 17:40 17:55 18:00 18:10 Pulse 86 98 ??? B/P (MAP) 122/68 (86) 129/79 (96) Pulse Ox 94 93 Physical Exam General Appearance: The patient is alert, has no immediate need for airway protection and no signs of toxicity. Eyes: Pupils equal and round no pallor or injection. ENT, Mouth: Mucous membranes are moist. Respiratory: occ ronchi that clear, decreased breath sounds, no wheezes Cardiovascular: Regular rate and rhythm. ii/vi murmur Gastrointestinal: Abdomen is soft and non tender, no masses, bowel sounds normal. Neurological: alert, moves all ext Skin: warm and dry, bilat le edema, no ttp, baseline per pt Musculoskeletal: moves all ext DIFFERENTIAL DIAGNOSIS: After history and physical exam differential diagnosis was considered for shortness of breath including but not limited to pulmonary infectious process, COPD, asthma, pulmonary embolus and congestive heart failure. Medical Decision Making Data Points Result Diagram: 10/19/18 1255 10/19/18 1255 Laboratory Hematology Test 10/19/18 12:55 10/19/18 13:45 Red Blood Count 3.29 M/uL (4.17-5.56) Mean Corpuscular Volume 101.2 fL (80.0-96.0) Mean Corpuscular Hemoglobin 32.8 pg (26.0-33.0) Mean Corpuscular Hemoglobin Concent 32.4 g/dL (32.0-36.0) Red Cell Distribution Width 16.5 % (11.5-14.5) Mean Platelet Volume 7.9 fL (7.2-11.1) Neutrophils (%) (Auto) 71.9 % (39.4-72.5) Lymphocytes (%) (Auto) 16.5 % (17.6-49.6) Monocytes (%) (Auto) 10.2 % (4.1-12.4) Eosinophils (%) (Auto) 1.0 % (0.4-6.7) Basophils (%) (Auto) 0.4 % (0.3-1.4) Nucleated RBC Relative Count (auto) 0.3 /100WBC Neutrophils # (Auto) 5.4 K/uL (2.0-7.4) Lymphocytes # (Auto) 1.2 K/uL (1.3-3.6) Monocytes # (Auto) 0.8 K/uL (0.3-1.0) Eosinophils # (Auto) 0.1 K/uL (0.0-0.5) Basophils # (Auto) 0.0 K/uL (0.0-0.1) Nucleated RBC Absolute Count (auto) 0.02 K/uL Sodium Level 140 mmol/L (137-145) Potassium Level 4.4 mmol/L (3.5-5.0) Chloride Level 99 mmol/L (98-107) Carbon Dioxide Level 37 mmol/L (22-31) Blood Urea Nitrogen 54 mg/dl (7-18) Creatinine 1.60 mg/dl (0.52-1.04) Glomerular Filtration Rate Calc 31.4 Random Glucose 147 mg/dl (75-110) Calcium Level 9.1 mg/dl (8.4-10.2) Total Bilirubin 0.8 mg/dl (0.2-1.3) Aspartate Amino Transf (AST/SGOT) 15 U/L (0-35) Alanine Aminotransferase (ALT/SGPT) 19 U/L (0-56) Alkaline Phosphatase 70 U/L (0-126) Troponin I 0.015 ng/ml B-Type Natriuretic Peptide 263 pg/ml (0-100) Total Protein 6.3 g/dl (6.3-8.2) Albumin 3.7 g/dl (3.5-5.0) Urine Color Yellow Urine Clarity Slightly-cloudy Urine pH 5.0 pH (4.8-9.5) Urine Specific [place] 1.012 Urine Protein 30 mg/dL (NEGATIVE) Urine Glucose (UA) Negative mg/dL (NEGATIVE) Urine Ketones Negative mg/dL (NEGATIVE) Urine Blood Small (NEGATIVE) Urine Nitrite Negative (NEGATIVE) Urine Bilirubin Negative (NEGATIVE) Urine Urobilinogen Negative mg/dL (0.2-1.9) Urine Leukocyte Esterase Large (NEGATIVE) Urine RBC 16 /HPF (0-2/HPF) Urine WBC 82 /HPF (0-5/HPF) Urine Squamous Epithelial Cells Many /LPF (</=FEW) Urine Transitional Epithelial Cells Many /LPF (NONE-FEW) Urine Bacteria Negative /HPF (NONE-FEW) Urine Hyaline Casts Few /LPF (NONE-FEW) Urine Mucus None /HPF (NONE-FEW) Urine Yeast (Budding) Few /HPF Chemistry Test 10/19/18 12:55 10/19/18 13:45 White Blood Count 7.6 k/uL (4.5-11.0) Red Blood Count 3.29 M/uL (4.17-5.56) Hemoglobin 10.8 g/dL (12.0-16.0) Hematocrit 33.3 % (34.0-47.0) Mean Corpuscular Volume 101.2 fL (80.0-96.0) Mean Corpuscular Hemoglobin 32.8 pg (26.0-33.0) Mean Corpuscular Hemoglobin Concent 32.4 g/dL (32.0-36.0) Red Cell Distribution Width 16.5 % (11.5-14.5) Platelet Count 105 K/uL (150-450) Mean Platelet Volume 7.9 fL (7.2-11.1) Neutrophils (%) (Auto) 71.9 % (39.4-72.5) Lymphocytes (%) (Auto) 16.5 % (17.6-49.6) Monocytes (%) (Auto) 10.2 % (4.1-12.4) Eosinophils (%) (Auto) 1.0 % (0.4-6.7) Basophils (%) (Auto) 0.4 % (0.3-1.4) Nucleated RBC Relative Count (auto) 0.3 /100WBC Neutrophils # (Auto) 5.4 K/uL (2.0-7.4) Lymphocytes # (Auto) 1.2 K/uL (1.3-3.6) Monocytes # (Auto) 0.8 K/uL (0.3-1.0) Eosinophils # (Auto) 0.1 K/uL (0.0-0.5) Basophils # (Auto) 0.0 K/uL (0.0-0.1) Nucleated RBC Absolute Count (auto) 0.02 K/uL Glomerular Filtration Rate Calc 31.4 Calcium Level 9.1 mg/dl (8.4-10.2) Total Bilirubin 0.8 mg/dl (0.2-1.3) Aspartate Amino Transf (AST/SGOT) 15 U/L (0-35) Alanine Aminotransferase (ALT/SGPT) 19 U/L (0-56) Alkaline Phosphatase 70 U/L (0-126) Troponin I 0.015 ng/ml B-Type Natriuretic Peptide 263 pg/ml (0-100) Total Protein 6.3 g/dl (6.3-8.2) Albumin 3.7 g/dl (3.5-5.0) Urine Color Yellow Urine Clarity Slightly-cloudy Urine pH 5.0 pH (4.8-9.5) Urine Specific [place] 1.012 Urine Protein 30 mg/dL (NEGATIVE) Urine Glucose (UA) Negative mg/dL (NEGATIVE) Urine Ketones Negative mg/dL (NEGATIVE) Urine Blood Small (NEGATIVE) Urine Nitrite Negative (NEGATIVE) Urine Bilirubin Negative (NEGATIVE) Urine Urobilinogen Negative mg/dL (0.2-1.9) Urine Leukocyte Esterase Large (NEGATIVE) Urine RBC 16 /HPF (0-2/HPF) Urine WBC 82 /HPF (0-5/HPF) Urine Squamous Epithelial Cells Many /LPF (</=FEW) Urine Transitional Epithelial Cells Many /LPF (NONE-FEW) Urine Bacteria Negative /HPF (NONE-FEW) Urine Hyaline Casts Few /LPF (NONE-FEW) Urine Mucus None /HPF (NONE-FEW) Urine Yeast (Budding) Few /HPF Urinalysis Test 10/19/18 13:45 Urine Color Yellow Urine Clarity Slightly-cloudy Urine pH 5.0 pH (4.8-9.5) Urine Specific [place] 1.012 Urine Protein 30 mg/dL (NEGATIVE) Urine Glucose (UA) Negative mg/dL (NEGATIVE) Urine Ketones Negative mg/dL (NEGATIVE) Urine Blood Small (NEGATIVE) Urine Nitrite Negative (NEGATIVE) Urine Bilirubin Negative (NEGATIVE) Urine Urobilinogen Negative mg/dL (0.2-1.9) Urine Leukocyte Esterase Large (NEGATIVE) Urine RBC 16 /HPF (0-2/HPF) Urine WBC 82 /HPF (0-5/HPF) Urine Squamous Epithelial Cells Many /LPF (</=FEW) Urine Transitional Epithelial Cells Many /LPF (NONE-FEW) Urine Bacteria Negative /HPF (NONE-FEW) Urine Hyaline Casts Few /LPF (NONE-FEW) Urine Mucus None /HPF (NONE-FEW) Urine Yeast (Budding) Few /HPF ED Course/Re-evaluation ED Course CXR shows: subtle asymmetric CHF vs early developing RLL infiltrate; pt's sgs/symptoms are more c/w pneumonia, fatigue and mild dehydration, latasha given her fluid restriction and increased insensible losses with the resp infection; after 500mL pt is notably more energetic. Reasonable for d/c, latasha as she lives with family and has home health care. Will dc with abx and temporary increase in fluid intake. Pt understands SRP's. Decision to Disposition Date: Oct 19, 2018 Decision to Disposition Time: 17:35 Depart Departure Latest Vital Signs Vital Signs Date Time Temp Pulse Resp B/P (MAP) Pulse Ox O2 Delivery O2 Flow Rate FiO2 10/19/18 18:10 ??? 10/19/18 18:00 129/79 (96) 10/19/18 17:55 93 10/19/18 16:26 98.0 10/19/18 12:32 18 Nasal Cannula Impression: Primary Impression: Community acquired bacterial pneumonia Condition: Improved Disposition: HOME OR SELF-CARE Referrals: SANTOS HAMLIN APRN [employer] PEELING MACHINE OPERATOR-C (PCP) New Scripts Azithromycin (ZITHROMAX) 250 Mg Tablet 1 TAB PO QDAY for 4 Days, #4 TAB Prov: RAFA STONE MD 10/19/18 Patient Instructions: Bacterial Pneumonia (ED) Additional Instructions: As we discussed, you may increase your fluid intake by about 1/4 to 1/3 while you are fighting the infection. If you notice swelling in the legs, decrease your fluid intake. If you have worsening difficulty breathing, chest pain, or any other concerns, please return immediately RAFA STONE MD Oct 19, 2018 13:42
[2018-10-19] MEDS ORDERED: AZITHROMYCIN(*) 500 MG 500 MG in NS(*) 0.9% 250 ML BAG 250 ML IVPB ONE (14:45)
[2018-10-19] MEDS ORDERED: cefTRIAXone(*) 1 GM VIAL 1 GM in NS(*) 0.9% 100 ML ADDVANT BAG 100 ML IVPB ONE (14:45)
[2018-10-19] MEDS ORDERED: NS(*) 0.9% 500 ML BAG 500 ML IV ONE (14:45)
[2018-10-19] MEDS ORDERED: AZIT-1 PO (17:31)
[2018-10-19 18:00] VITALS: BP 129/79
== END 2018-10-19 18:12 | disposition home or self-care (01) ==
LOC: ER 12:24
DX: J15.9 Unspecified bacterial pneumonia (principal); I48.91 Unspecified atrial fibrillation
CPT/HCPCS: 71046; 81001; 83880; 84484; 85025; 93005; 96365; 96368; 99284; J0456; J0696; J7040; J7050; 82040; 82247; 82310; 82374; 82435; 82565; 82947; 84075; 84132; 84155; 84295; 84450; 84460; 84520

== ENCOUNTER → 2018-10-24 | Outpatient (REF) | payer MEDICARE, MEDICAID ==
[2018-04-29 10:58] VITALS: BMI 37.5
[~2018-10-24] MED LIST changes: +AZIT-1 PO
[2018-10-24 12:11] LABS: PLATELET COUNT, AUTOMATED 110 K/uL (150-450)
== END ==
LOC: ZZSENDIN 11:55
PROVIDERS: ATTEND Nurse Practitioner Family
DX: D50.9 Iron deficiency anemia, unspecified (principal); R71.8 Other abnormality of red blood cells; N18.9 Chronic kidney disease, unspecified
CPT/HCPCS: 82607; 82728; 82746; 83540; 83550; 85025

== ENCOUNTER → 2018-11-20 | Outpatient (CLI) | payer MEDICARE, MEDICAID ==
[2018-04-29 10:58] VITALS: BMI 37.5
[~2018-11-20] MED LIST changes: -AMLO-111 PO; -AMLO-113 PO; +AMLO-125 PO; +AMLO-127 PO; -GABA-503 PO; +GABA-533 PO; -SIMV5TAB60 PO; +SIMV5TAB69 PO
[2018-11-20 17:11] LABS: PLATELET COUNT, AUTOMATED 72 K/uL (150-450)
== END ==
LOC: LAB 15:15
PROVIDERS: ATTEND Nurse Practitioner Family
DX: D64.9 Anemia, unspecified (principal); I50.9 Heart failure, unspecified; R53.83 Other fatigue
CPT/HCPCS: 36415; 82040; 82247; 82310; 82374; 82435; 82565; 82728; 82947; 83540; 83550; 83880; 84075; 84132; 84155; 84295; 84443; 84450; 84460; 84520; 85025

== ENCOUNTER → 2018-11-22 | Outpatient (REF) | payer MEDICARE, MEDICAID ==
[2018-04-29 10:58] VITALS: BMI 37.5
[2018-11-22 10:39] LABS: PLATELET COUNT, AUTOMATED 74 K/uL (150-450)
== END ==
LOC: ZZSENDIN 10:17
PROVIDERS: ATTEND Nurse Practitioner Family
DX: D64.9 Anemia, unspecified (principal); I51.9 Heart disease, unspecified
CPT/HCPCS: 82040; 82247; 82310; 82374; 82435; 82565; 82947; 83880; 84075; 84132; 84155; 84295; 84450; 84460; 84520; 85025

== ENCOUNTER 2018-11-24 11:01 | Emergency (ER) | payer MEDICARE, MEDICAID ==
[2018-04-29 10:58] VITALS: Wt 88.9 kg
--- NOTE | 2018-11-24 11:15 | ER Report ---
History and Physical Time Seen By MD: 11:10 HPI/ROS CHIEF COMPLAINT: Fatigue HISTORY OF PRESENT ILLNESS: This is a 73-year-old female who presents to the emergency department for fatigue. The patient has been "dealing with pneumonia", for roughly 1-2 months. She's also had dark melena type stools for the last couple months as well. Patient states that she's been very fatigued over the last several days. She denies chest pain or shortness of breath. She does have lightheadedness when she is standing or moving about. She denies fevers or ch ills. No nausea or vomiting. No headaches or rashes. No abdominal pain. She wears oxygen, 3 L/m [id number], recent diagnosis of congestive heart failure as well. She does have some mild shortness of breath but this is been roughly the same for the last several weeks. REVIEW OF SYSTEMS: Constitutional: No fever, no chills. Eyes: No discharge. ENT: No sore throat. Cardiovascular: As above. Respiratory: As above. Gastrointestinal: No abdominal pain, no vomiting. Genitourinary: No hematuria. Musculoskeletal: No back pain. Skin: No rashes. Neurological: As above. Allergies: Coded Allergies: Penicillins (Verified Allergy, Intermediate, HIVES, 10/12/18) codeine (Verified Allergy, Intermediate, HIVES, 10/12/18) lisinopril (Verified Allergy, Intermediate, ITCHING, RASH, 10/12/18) Iodinated Contrast- Oral and IV Dye (Verified Allergy, Unknown, 10/12/18) fluconazole (Verified Adverse Reaction, Intermediate, DIARRHEA, 10/12/18) hydromorphone HCl (Verified Adverse Reaction, Intermediate, NAUSEA/VOMITING. "HEAD SPINNING", 10/12/18) Home Meds Active Scripts Sulfamethoxazole/Trimet 800-160 Mg Tab (BACTRIM DS TABLET) 1 Each Tablet, 1 TAB PO Q12H for 7 Days, #14 TAB 0 Refills Prov:ARTEM MUNOZ [employer]-BC 11/24/18 Furosemide (FUROSEMIDE) 40 Mg Tablet, 1-2 TAB PO BID, #270 TAB 0 Refills 2 tabs in the morning and 1 tab in the afternoon Prov:SANTOS HAMLIN APRN [employer]-C 11/20/18 [place], Disposable (NEEDLES) 1 Each Dis.needle, SYR MC BID, #100 1 Refill Prov:SANTOS HAMLIN APRNC 11/17/18 Allopurinol (Allopurinol) 300 Mg Tablet, 1 TAB PO QDAY, #90 TAB 3 Refills Prov:SANTOS HAMLIN APRNC 11/08/18 Ferrous Sulfate (IRON) 325 Mg Tablet, 1 TAB PO BID, #60 TAB 0 Refills Prov:SANTOS HAMLIN APRN 10/26/18 Azithromycin (ZITHROMAX) 250 Mg Tablet, 1 TAB PO QDAY for 4 Days, #4 TAB Prov:RAFA STONE MD 10/19/18 Clonidine Hcl (CLONIDINE HCL) 0.1 Mg Tablet, 0.5 TAB PO BID, #90 TAB 0 Refills 0.5 mg tab BID Prov:SANTOS HAMLIN APRN 10/18/18 Pregabalin (LYRICA) 50 Mg Capsule, 1 CAP PO TID, #90 CAPSULE 5 [facility] 09/[facility]/18 Pantoprazole Sodium (PANTOPRAZOLE SODIUM) 40 Mg Tablet.dr, 1 TAB PO BID for 30 Days, #180 TAB.SR 0 Refills Prov:SANTOS HAMLIN APRN-C 08/07/18 Amlodipine Besylate (AMLODIPINE BESYLATE) 10 Mg Tablet, 1 TAB PO QDAY, #90 TAB 0 Refills Prov:SANTOS HAMLIN APRNC 08/07/18 Carvedilol (CARVEDILOL) 12.5 Mg Tablet, 1 TAB PO BID, #180 TAB 3 Refills Prov:SANTOS HAMLIN APRNC 06/07/18 Blood Sugar Diagnostic (GLUCOSE TEST STRIP) 1 Each Strip, 250 EACH MC 2-3XD, #250 STRIP 3 Refills Prov:SANTOS HAMLIN APRNC 06/01/18 Atorvastatin Calcium (ATORVASTATIN CALCIUM) 40 Mg Tablet, 1 TAB PO QDAY, #90 TAB 2 Refills Prov:SANTOS HAMLIN APRN 05/16/18 Reported Medications Apixaban (ELIQUIS) 5 Mg Tablet, 1 TAB PO BID 11/20/18 Potassium Chloride (POTASSIUM CHLORIDE) 20 Meq Tab.er.prt, 20 MEQ PO QDAY 04/29/18 Hum Insulin Nph/Reg Insulin Hm (NOVOLIN 70-30 100 UNIT/ML VIAL) 100 Unit/1 Ml Vial, 50 UNIT SQ BID, VIAL 50 units in am, 30 units HS 04/29/18 Calcium Polycarbophil (FIBERCON) 625 Mg Tablet, 625 MG PO 04/28/18 Clopidogrel Bisulfate (CLOPIDOGREL) 75 Mg Tablet, 1 TAB PO QDAY, TAB 02/09/18 Nitroglycerin (NITROGLYCERIN) 0.4 Mg Tab.subl, 0.4 MG SL Q5MIN PRN for CHEST PAIN 12/09/16 Vit C/E/Zn/Coppr/Lutein/Zeaxan (Preservision Areds 2 Softgel) 1 Each Capsule, 1 CAP PO BID 12/09/16 Calcium Carb & Cit/Vitamin D3 (CALCIUM + D3 ER TABLET) 1 Each Tablet.er, 1 EACH PO QDAY 12/09/16 Oxygen (OXYGEN) 2 L Inha, 2 L INH CONTINUOUS, L 02/13/15 Docusate Sodium (Colace 100 Mg) 100 Mg Cap, 1 CAP PO BID, 0 Refills 03/31/12 Past Medical/Surgical History The patient has a past medical and surgical history of congestive heart failure, heart attack, angina, atrial fibrillation, DVT, hypertension, hyper cholesterolemia, COPD, smoked for 41 years, chronic constipation, GERD, hiatal hernia, multiple kidney stones with stents, arthritis, leg and ankle fracture, bulging disc in the lower back, multiple compression issues in the back, wears glasses, wears dentures, insulin-dependent diabetic, bruises easily, skin cancer excision, 3 coronary artery stents, pacemaker, defibrillator, appendectomy, cholecystectomy, cataract surgery, hernia repair. Hx Smoking: Yes Smoking Status: Former Smoker Exposure to Second Hand Smoke?: No Hx Substance Use Disorder: No Hx Alcohol Use: No Constitutional Vital Sign - Last 24 Hours 11/24/18 11/24/18 11/24/18 11/24/18 11:10 11:10 11:18 11:30 Temp 97.6 97.5 Pulse 72 68 Resp 18 16 B/P (MAP) 100/55 (70) 100/55 100/55 (70) 96/56 (69) Pulse Ox 98 98 O2 Delivery Nasal Cannula Nasal Cannula O2 Flow Rate 2 11/24/18 11/24/18 11/24/18 11/24/18 11:31 11:38 12:00 12:01 Pulse 75 67 Resp 17 12 B/P (MAP) 101/54 (70) Pulse Ox 97 97 O2 Flow Rate 2.0 11/24/18 11/24/18 11/24/18 11/24/18 12:06 12:30 12:36 13:00 Pulse 72 75 Resp 16 19 B/P (MAP) 103/65 (78) 108/59 (75) Pulse Ox 87 97 11/24/18 13:06 Pulse 72 Resp 9 Pulse Ox 98 Physical Exam General Appearance: The patient is alert, has no immediate need for airway protection and no signs of toxicity. Eyes: Pupils equal and round no pallor or injection. ENT, Mouth: Mucous membranes are moist. Respiratory: There are no retractions, lungs are clear to auscultation. Cardiovascular: Irregular rate and rhythm, no murmurs, clicks or rubs. Gastrointestinal: Abdomen is soft and non tender, no masses, bowel sounds normal. Neurological: Alert and oriented 4. Moving all extremities. Following all commands. No focal neuro deficits. Skin: Warm and dry, no rashes. Musculoskeletal: Neck is supple non tender. Extremities are nontender, nonswollen and have full range of motion. DIFFERENTIAL DIAGNOSIS: After history and physical exam differential diagnosis was considered for anemia, fatigue, pneumonia, urinary tract infection, stroke, TIA, dehydration. Medical Decision Making Data Points Result Diagram: 11/24/18 1114 11/24/18 1114 Laboratory Hematology Test 11/24/18 00:00 11/24/18 11:14 11/24/18 12:16 Magnesium Level 2.3 mg/dl (1.7-2.2) Red Blood Count 2.86 M/uL (4.17-5.56) Mean Corpuscular Volume 103.8 fL (80.0-96.0) Mean Corpuscular Hemoglobin 32.1 pg (26.0-33.0) Mean Corpuscular Hemoglobin Concent 30.9 g/dL (32.0-36.0) Red Cell Distribution Width 19.8 % (11.5-14.5) Mean Platelet Volume 9.3 fL (7.2-11.1) Neutrophils (%) (Auto) 69.1 % (39.4-72.5) Lymphocytes (%) (Auto) 14.6 % (17.6-49.6) Monocytes (%) (Auto) 11.1 % (4.1-12.4) Eosinophils (%) (Auto) 4.7 % (0.4-6.7) Basophils (%) (Auto) 0.5 % (0.3-1.4) Nucleated RBC Relative Count (auto) 0.7 /100WBC Neutrophils # (Auto) 2.8 K/uL (2.0-7.4) Lymphocytes # (Auto) 0.6 K/uL (1.3-3.6) Monocytes # (Auto) 0.5 K/uL (0.3-1.0) Eosinophils # (Auto) 0.2 K/uL (0.0-0.5) Basophils # (Auto) 0.0 K/uL (0.0-0.1) Nucleated RBC Absolute Count (auto) 0.03 K/uL Sodium Level 140 mmol/L (137-145) Potassium Level 4.6 mmol/L (3.5-5.0) Chloride Level 106 mmol/L (98-107) Carbon Dioxide Level 30 mmol/L (22-31) Blood Urea Nitrogen 55 mg/dl (7-18) Creatinine 1.70 mg/dl (0.52-1.04) Glomerular Filtration Rate Calc 29.3 Random Glucose 192 mg/dl (75-110) Calcium Level 8.6 mg/dl (8.4-10.2) Total Bilirubin 0.6 mg/dl (0.2-1.3) Aspartate Amino Transf (AST/SGOT) 24 U/L (0-35) Alanine Aminotransferase (ALT/SGPT) 29 U/L (0-56) Alkaline Phosphatase 65 U/L (0-126) Troponin I < 0.012 ng/ml B-Type Natriuretic Peptide 276 pg/ml (0-100) Total Protein 6.1 g/dl (6.3-8.2) Albumin 3.7 g/dl (3.5-5.0) Urine Color Yellow Urine Clarity Turbid Urine pH 5.0 pH (4.8-9.5) Urine Specific [place] 1.011 Urine Protein 30 mg/dL (NEGATIVE) Urine Glucose (UA) Negative mg/dL (NEGATIVE) Urine Ketones Negative mg/dL (NEGATIVE) Urine Blood Small (NEGATIVE) Urine Nitrite Negative (NEGATIVE) Urine Bilirubin Negative (NEGATIVE) Urine Urobilinogen Negative mg/dL (0.2-1.9) Urine Leukocyte Esterase Large (NEGATIVE) Urine RBC 23 /HPF (0-2/HPF) Urine WBC 830 /HPF (0-5/HPF) Urine WBC Clumps Many /HPF Urine Squamous Epithelial Cells Many /LPF (</=FEW) Urine Transitional Epithelial Cells Many /LPF (NONE-FEW) Urine Bacteria Many /HPF (NONE-FEW) Urine Mucus None /HPF (NONE-FEW) Chemistry Test 11/24/18 00:00 11/24/18 11:14 11/24/18 12:16 Magnesium Level 2.3 mg/dl (1.7-2.2) White Blood Count 4.1 k/uL (4.5-11.0) Red Blood Count 2.86 M/uL (4.17-5.56) Hemoglobin 9.2 g/dL (12.0-16.0) Hematocrit 29.7 % (34.0-47.0) Mean Corpuscular Volume 103.8 fL (80.0-96.0) Mean Corpuscular Hemoglobin 32.1 pg (26.0-33.0) Mean Corpuscular Hemoglobin Concent 30.9 g/dL (32.0-36.0) Red Cell Distribution Width 19.8 % (11.5-14.5) Platelet Count 79 K/uL (150-450) Mean Platelet Volume 9.3 fL (7.2-11.1) Neutrophils (%) (Auto) 69.1 % (39.4-72.5) Lymphocytes (%) (Auto) 14.6 % (17.6-49.6) Monocytes (%) (Auto) 11.1 % (4.1-12.4) Eosinophils (%) (Auto) 4.7 % (0.4-6.7) Basophils (%) (Auto) 0.5 % (0.3-1.4) Nucleated RBC Relative Count (auto) 0.7 /100WBC Neutrophils # (Auto) 2.8 K/uL (2.0-7.4) Lymphocytes # (Auto) 0.6 K/uL (1.3-3.6) Monocytes # (Auto) 0.5 K/uL (0.3-1.0) Eosinophils # (Auto) 0.2 K/uL (0.0-0.5) Basophils # (Auto) 0.0 K/uL (0.0-0.1) Nucleated RBC Absolute Count (auto) 0.03 K/uL Glomerular Filtration Rate Calc 29.3 Calcium Level 8.6 mg/dl (8.4-10.2) Total Bilirubin 0.6 mg/dl (0.2-1.3) Aspartate Amino Transf (AST/SGOT) 24 U/L (0-35) Alanine Aminotransferase (ALT/SGPT) 29 U/L (0-56) Alkaline Phosphatase 65 U/L (0-126) Troponin I < 0.012 ng/ml B-Type Natriuretic Peptide 276 pg/ml (0-100) Total Protein 6.1 g/dl (6.3-8.2) Albumin 3.7 g/dl (3.5-5.0) Urine Color Yellow Urine Clarity Turbid Urine pH 5.0 pH (4.8-9.5) Urine Specific [place] 1.011 Urine Protein 30 mg/dL (NEGATIVE) Urine Glucose (UA) Negative mg/dL (NEGATIVE) Urine Ketones Negative mg/dL (NEGATIVE) Urine Blood Small (NEGATIVE) Urine Nitrite Negative (NEGATIVE) Urine Bilirubin Negative (NEGATIVE) Urine Urobilinogen Negative mg/dL (0.2-1.9) Urine Leukocyte Esterase Large (NEGATIVE) Urine RBC 23 /HPF (0-2/HPF) Urine WBC 830 /HPF (0-5/HPF) Urine WBC Clumps Many /HPF Urine Squamous Epithelial Cells Many /LPF (</=FEW) Urine Transitional Epithelial Cells Many /LPF (NONE-FEW) Urine Bacteria Many /HPF (NONE-FEW) Urine Mucus None /HPF (NONE-FEW) Urinalysis Test 11/24/18 12:16 Urine Color Yellow Urine Clarity Turbid Urine pH 5.0 pH (4.8-9.5) Urine Specific [place] 1.011 Urine Protein 30 mg/dL (NEGATIVE) Urine Glucose (UA) Negative mg/dL (NEGATIVE) Urine Ketones Negative mg/dL (NEGATIVE) Urine Blood Small (NEGATIVE) Urine Nitrite Negative (NEGATIVE) Urine Bilirubin Negative (NEGATIVE) Urine Urobilinogen Negative mg/dL (0.2-1.9) Urine Leukocyte Esterase Large (NEGATIVE) Urine RBC 23 /HPF (0-2/HPF) Urine WBC 830 /HPF (0-5/HPF) Urine WBC Clumps Many /HPF Urine Squamous Epithelial Cells Many /LPF (</=FEW) Urine Transitional Epithelial Cells Many /LPF (NONE-FEW) Urine Bacteria Many /HPF (NONE-FEW) Urine Mucus None /HPF (NONE-FEW) EKG/Imaging EKG Interpretation 12 lead EKG: Time of EKG 1133. Rhythm: Demand pacemaker, ventricular rate 73 bpm. Underlying intrafibrillation. [place]: Left axis deviation. QRS: normal ST segments: No ST depression or elevation identified. No significant changes from the 10/19/2018 EKG. Imaging Location: [facility] Patient: Eugenia Rushing : 1945 Visit/Account:[id number] Date of Sevice: 11/24/2018 2 VIEWS CHEST INDICATION: Lightheadedness. Recent pneumonia. COMPARISON: 11/09/2018 FINDINGS: The lungs are clear. No effusion or pneumothorax is seen. Heart size is mildly enlarged. There has been prior transcatheter aortic valve replacement procedure performed. A dual-lead left subclavian pacemaker defibrillator is also in place. Atherosclerosis noted within the aortic arch. Mild degenerative changes involve the thoracic spine. IMPRESSION: 1. No radiographic evidence of active disease. 2. Mild cardiac enlargement without change. Additional findings as above. Report Dictated By: Benja Phillips at 11/24/2018 12:55 PM Report E-Signed By: Benja Phillips at 11/24/2018 12:57 PM WSN:[id number] ED Course/Re-evaluation Clinical Indication for ER IV: IV Access ED Course The patient was admitted to room. A history and physical were obtained. Differential diagnoses were considered. An IV was started. A CBC, CMP and UA were collected. CBC showing white blood cell count of 4.1, this is consistent with the previous studies, RBCs 2.86, H&H 9.2 and 29.7 which are improved from the November 22 lab studies. No significant changes from the chemistry other than glucose of 192. BNP 276 which is down from 327. UA showing a large leukocyte esterase, with urine white blood cells of 8:30, this is increased from previous studies. I reviewed the laboratory studies with the patient, I did tell her that her lab studies have improved. [place] two-view chest x-ray. I did tell the patient that she does have a urinary tract infection, I also spoke with the patient's primary care provider, discussed her case, the patient will follow-up with Roland Andrade next week for reevaluation. Patient was started on Bactrim for her urinary tract infection. Patient will continue home care as scheduled, she has no other concerns at this time. Patient is agreeable with this plan of care and discharged home. Decision to Disposition Date: Nov 24, 2018 Decision to Disposition Time: 13:10 Depart Departure Latest Vital Signs Vital Signs Date Time Temp Pulse Resp B/P (MAP) Pulse Ox O2 Delivery O2 Flow Rate FiO2 11/24/18 13:06 72 9 98 11/24/18 13:00 108/59 (75) 11/24/18 11:38 2.0 11/24/18 11:18 97.5 Nasal Cannula Impression: Primary Impression: Fatigue associated with anemia Additional Impression: UTI (urinary tract infection) Condition: Improved Disposition: HOME OR SELF-CARE Referrals: SANTOS HAMLIN APRNP-C (PCP) 1 Week New Scripts Sulfamethoxazole/Trimet 800-160 Mg Tab (BACTRIM DS TABLET) 1 Each Tablet 1 TAB PO Q12H for 7 Days, #14 TAB 0 Refills Prov: ARTEM MUNOZ Deepak [employer]-BC 11/24/18 Patient Instructions: Urinary Tract Infection in Women (ED) Additional Instructions: The blood work that was drawn today is showing improvement from the previous blood work. There were no concerning findings on the chest x-ray today. The urine is showing what appears to be a urinary tract infection, I will start chew on Bactrim, he will take this for 7 days. Please follow-up with Roland Andrade within 1 week for reevaluation. Continue taking your current medications. Drink the allotted amount of water. Get plenty of rest. Return to the emergency department for any other concerns or worsening symptoms. Problem Qualifiers Additional Impression: UTI (urinary tract infection) Urinary tract infection type: site unspecified Hematuria presence: with hematuria Qualified Codes: N39.0 - Urinary tract infection, site not specified; R31.9 - Hematuria, unspecified ARTEM MUNOZ [employer]- Nov 24, 2018 11:15
[2018-11-24 11:42] LABS: PLATELET COUNT, AUTOMATED 79 K/uL (150-450)
--- NOTE | 2018-11-24 11:56 | EKG ---
FACILITY: [facility] PATIENT NAME: SHANTE ROME : [id number] MR: [id number] V: [id number] EXAM DATE: ORDERING PHYSICIAN: ARTEM MUNOZ TECHNOLOGIST: TOYA Test Reason : BP Blood Pressure : / mmHG Vent. Rate : 073 BPM Atrial Rate : 214 BPM P-R Int : 000 ms QRS Dur : 110 ms QT Int : 418 ms P-R-T Axes : 000 -64 088 degrees QTc Int : 460 ms Demand pacemaker, interpretation is based on intrinsic rhythm Atrial fibrillation Left axis deviation Inferior infarct (cited on or before 24-NOV-2018) Anterolateral infarct (cited on or before 24-NOV-2018) Abnormal ECG When compared with ECG of 19-OCT-2018 12:36, Electronic demand pacing is now present Confirmed by JENNY ALFONSO ([id number]) on 11/24/2018 10:54:57 PM Referred By: MINNA Confirmed By:JENNY ALFONSO
[2018-11-24 13:00] VITALS: BP 108/59
--- NOTE | 2018-11-24 13:01 | RADIOLOGY IMAGING REPORT ---
FACILITY: [facility] PATIENT NAME: Eugenia Rushing : 1945 MR: [id number] V: [id number] EXAM DATE: ORDERING PHYSICIAN: ARTEM MUNOZ TECHNOLOGIST: Location: [facility] Patient: Eugenia Rushing : 1945 Visit/Account:[id number] Date of Sevice: 11/24/2018 2 VIEWS CHEST INDICATION: Lightheadedness. Recent pneumonia. COMPARISON: 11/09/2018 FINDINGS: The lungs are clear. No effusion or pneumothorax is seen. Heart size is mildly enlarged. There has be en prior transcatheter aortic valve replacement procedure performed. A dual-lead left subclavian pace maker defibrillator is also in place. Atherosclerosis noted within the aortic arch. Mild degenerative changes involve the thoracic spine. IMPRESSION: 1. No radiographic evidence of active disease. 2. Mild cardiac enlargement without change. Additional findings as above. Report Dictated By: Benja Phillips at 11/24/2018 12:55 PM Report E-Signed By: Benja Phillips at 11/24/2018 12:57 PM WSN:[id number]
[2018-11-24] MEDS ORDERED: SULF-198 PO (13:02)
== END 2018-11-24 13:29 | disposition home or self-care (01) ==
LOC: ER 11:10
DX: D64.9 Anemia, unspecified (principal); N39.0 Urinary tract infection, site not specified; R31.9 Hematuria, unspecified
CPT/HCPCS: 71046; 81001; 82040; 82247; 82310; 82374; 82435; 82565; 82947; 83735; 83880; 84075; 84132; 84155; 84295; 84450; 84460; 84484; 84520; 85025; 93005; 99283; 99284

== ENCOUNTER → 2018-12-04 | Outpatient (CLI) | payer MEDICARE, MEDICAID ==
[2018-04-29 10:58] VITALS: BMI 37.5
[2018-12-04 15:00] LABS: PLATELET COUNT, AUTOMATED 103 K/uL (150-450)
== END ==
LOC: LAB 14:03
PROVIDERS: ATTEND Nurse Practitioner Family
DX: D64.9 Anemia, unspecified (principal); I50.9 Heart failure, unspecified; K92.2 Gastrointestinal hemorrhage, unspecified; R53.83 Other fatigue; B96.89 Other specified bacterial agents as the cause of diseases classified elsewhere
CPT/HCPCS: 36415; 81001; 82040; 82247; 82310; 82374; 82435; 82565; 82728; 82947; 83540; 83550; 84075; 84132; 84155; 84295; 84443; 84450; 84460; 84520; 85025; 85045; 87088

== ENCOUNTER → 2018-12-14 | Outpatient (CLI) | payer MEDICARE, MEDICAID ==
[2018-04-29 10:58] VITALS: BMI 37.5
[~2018-12-14] MED LIST changes: +LEVO250T41 PO
[2018-12-14 14:07] LABS: PLATELET COUNT, AUTOMATED 74 K/uL (150-450)
== END ==
LOC: LAB 13:29
PROVIDERS: ATTEND Nurse Practitioner Family
DX: D64.9 Anemia, unspecified (principal); K92.2 Gastrointestinal hemorrhage, unspecified; N18.3 Chronic kidney disease, stage 3 (moderate)
CPT/HCPCS: 81001; 82040; 82247; 82310; 82374; 82435; 82565; 82728; 82947; 83540; 83550; 84075; 84132; 84155; 84295; 84450; 84460; 84520; 85025; 87088

== ENCOUNTER → 2018-12-19 | Outpatient (CLI) | payer MEDICARE, MEDICAID ==
[2018-04-29 10:58] VITALS: BMI 37.5
[~2018-12-19] MED LIST changes: +FLUC50TA PO
== END ==
LOC: LAB 13:50
PROVIDERS: ATTEND Urology
DX: R82.998 Other abnormal findings in urine (principal)
CPT/HCPCS: 81001; 87088

== ENCOUNTER → 2019-01-01 | Outpatient (CLI) | payer MEDICARE, MEDICAID ==
[2018-04-29 10:58] VITALS: BMI 37.5
--- NOTE | 2019-01-01 10:13 | RADIOLOGY IMAGING REPORT ---
FACILITY: [facility] PATIENT NAME: Eugenia Rushing : 1945 MR: [id number] V: [id number] EXAM DATE: ORDERING PHYSICIAN: SHANNAN MARQUIS TECHNOLOGIST: [facility] Patient: Eugenia Rushing : 1945 Visit/Account:[id number] Date of Sevice: 01/01/2019 CT ABDOMEN PELVIS W/O CON HISTORY: recurrent UTIs - prerenal kidney failure TECHNIQUE: Axial images acquired through the abdomen/pelvis. Coronal and sagittal reformatting also performed. No IV contrast administered.Dose Lowering Technique One of the following dose optimization techniques was utilized in the performance of this exam: Autom ated exposure control; adjustment of the mA and/or kV according to the patient's size; or use of an i terative reconstruction technique. Specific details can be referenced in the facility's radiology C T exam operational policy. COMPARISON: April 28, 2018 FINDINGS: Visualized lung bases: Incompletely imaged is a prosthetic aortic valve and cardiac leads. There is scarring in the lung bases Hepatobiliary: There are postsurgical changes from a prior cholecystectomy that appears stable. Aga in noted is mild prominence of the hepatic portal branches although appears similar to the prior stud y. There is slightly less periportal edema now noted Spleen: Negative. Adrenals: Negative. Pancreas: Negative. Kidneys ureters and bladder: Cortical thinning again noted in both kidneys. Previously noted cortica l hypodensities and hypodensities appear stable when compared to the prior study. Numerous nonobstru cting calculi again identified in the left renal collecting system measuring up to 7 mm. There are s everal punctate nonobstructing calculi also identified in the right renal collecting system. Genitalia: Negative. GI: There is diverticulosis of the sigmoid colon although no CT evidence of acute diverticulitis Vessels/spaces/nodes: There is a trace amount of perihepatic fluid appears partially decreased when compared to the prior study. There are severe vascular calcifications throughout the abdomen and pelvis that appears similar to th e prior study. Prominent retroperitoneal lymph nodes appear stable when compared the prior study Bones/soft tissues: There are postsurgical changes from prior ventral hernia repair along the anteri or right lower abdominal wall. Fluid collection along the intra-abdominal wall appears to be increas ed now measuring approximately 2.5 cm in thickness and 18.4 cm in transverse dimension. (Previously measuring 1.4 x 10 cm edema and skin thickening just superficial to the operative site appears simila r to the prior examination. There is an additional subcutaneous collection along the lower left flank measuring 8.2 x 2.2 cm prev iously measuring 6 x 2.2 cm. This actually appears to connect to the right lower abdominal collectio n through a thin channel. There are extensive spondylotic changes of the visualized thoracolumbar spine. . There are chronic calcifications in the subcutaneous soft tissues along the posterior upper back Additional findings: None pertinent. IMPRESSION: Postsurgical changes from a prior cholecystectomy Prominence of the hepatic portal branches are again seen although appears similar to the prior study. There is slightly less periportal edema now noted Cortical thinning of both kidneys and nonobstructing nephrolithiasis Trace amount of perihepatic fluid is slightly decreased Severe atherosclerotic calcifications Stable prominent retroperitoneal lymph nodes Postsurgical changes from a prior ventral hernia repair along the anterior right lower abdominal wall . The superficial fluid collection along the intra-abdominal wall appears slightly increased. This could represent a seroma. No air bubbles are noted to suggest an abscess although clinical correlati on needed Additional chronic findings as described Report Dictated By: Negra Mike MD at 01/01/2019 9:36 AM Report E-Sign d By: Negra Mike MD at 01/01/2019 10:08 AM WSN:[id number]
== END ==
LOC: CT 02:04
PROVIDERS: ATTEND Urology
DX: N20.0 Calculus of kidney (principal); Z90.49 Acquired absence of other specified parts of digestive tract; I25.10 Atherosclerotic heart disease of native coronary artery without angina pectoris; Z98.890 Other specified postprocedural states
CPT/HCPCS: 74176

== ENCOUNTER → 2019-01-02 | Outpatient (CLI) | payer MEDICARE, MEDICAID ==
[2018-04-29 10:58] VITALS: BMI 37.5
== END ==
LOC: LAB 10:25
PROVIDERS: ATTEND Urology
DX: N39.0 Urinary tract infection, site not specified (principal)
CPT/HCPCS: 81001; 87088

== ENCOUNTER → 2019-01-02 | Outpatient (CLI) | payer MEDICARE, MEDICAID ==
[2018-04-29 10:58] VITALS: BMI 37.5
== END ==
LOC: LAB 13:36
PROVIDERS: ATTEND Nurse Practitioner Family
DX: Z02.9 Encounter for administrative examinations, unspecified (principal)

== ENCOUNTER → 2019-01-03 | Outpatient (CLI) | payer MEDICARE, MEDICAID ==
[2018-04-29 10:58] VITALS: BMI 37.5
[2019-01-02 14:02] LABS: PLATELET COUNT, AUTOMATED 90 K/uL (150-450)
== END ==
LOC: US 12-27 00:27
PROVIDERS: ATTEND Internal Medicine Cardiovascular Disease
DX: D64.9 Anemia, unspecified (principal); N18.3 Chronic kidney disease, stage 3 (moderate); I34.1 Nonrheumatic mitral (valve) prolapse; Z95.4 Presence of other heart-valve replacement
CPT/HCPCS: 36415; 82040; 82247; 82310; 82374; 82435; 82565; 82947; 84075; 84132; 84155; 84295; 84450; 84460; 84520; 85025; 93306

== ENCOUNTER → 2019-01-04 | Outpatient (CLI) | payer MEDICARE, MEDICAID ==
[2018-04-29 10:58] VITALS: BMI 37.5
== END ==
LOC: LAB 09:00
PROVIDERS: ATTEND Nurse Practitioner Family
DX: D64.9 Anemia, unspecified (principal)
CPT/HCPCS: 36415; 82607; 82728; 82746; 83540; 83550

== ENCOUNTER → 2019-02-01 | Outpatient (CLI) | payer MEDICARE, MEDICAID ==
[2018-04-29 10:58] VITALS: BMI 37.5
== END ==
LOC: RAD 14:21
PROVIDERS: ATTEND Internal Medicine Hematology
DX: D64.9 Anemia, unspecified (principal)
CPT/HCPCS: 77075

== ENCOUNTER 2019-04-02 10:04 | Outpatient (RCR) | payer MEDICARE, MEDICAID ==
[2018-04-29 10:58] VITALS: Wt 89.9 kg
[2019-01-19 13:48] VITALS: BP 104/59
[2019-01-19 14:49] LABS: PLATELET COUNT, AUTOMATED 79 K/uL (150-450)
--- NOTE | 2019-01-19 21:07 | EL-TARABILY ONCOLOGY NOTE ---
EVENT DATE: January 19, 2019 REFERRING PHYSICIAN Heather Birmingham, NELIA, OPERATIONAL METEOROLOGIST-C REASON FOR CONSULTATION Evaluation and management of macrocytic anemia. HEMATOLOGY/ONCOLOGY HISTORY Patient is a 74-year-old female with multiple medical problems who is followed by Heather Birmingham, and the patient was found to have macrocytic anemia. Her CBC on the November showed white count at 4.1, hemoglobin 9.5, hematocrit 30.1, and platelets 74,000. MCV was high at 106.1. Repeat CBC on the December showed white count 4.2, hemoglobin 8.9, hematocrit 17.8, platelets 90,000, MCV 106.1. Her differential count was nearly normal. Patient denies any constitutional symptoms. PAST MEDICAL HISTORY 1. Coronary artery disease. 2. Congestive heart failure. 3. COPD. 4. GERD. 5. Chronic kidney disease. 6. History of renal stones. 7. Atrial fibrillation. 8. Type 2 diabetes. 9. Hypertension. 10. Hypercholesterolemia. 11. Psoriasis. PAST SURGICAL HISTORY 1. Aortic valve replacement. 2. Pacemaker placement. 3. Defibrillator placement. 4. Surgery for renal stones. 5. Appendectomy. 6. Cholecystectomy. 7. Back surgery. 8. Tonsillectomy as a child. 9. Angioplasty. 10. Stent placement for the coronaries. 11. Removal of skin cancer. FAMILY HISTORY Brother with cancer, probably lung cancer with brain metastasis. Maternal grandmother with stomach cancer. Maternal cousin with pancreatic cancer. Another maternal cousin with ovarian cancer. Sister with anemia. SOCIAL HISTORY Patient is a with three children. One is surviving. She is a homemaker. She quit smoking 2004 after one pack a day for over 40 years. Denies any abuse of alcohol or illicit drugs. CURRENT MEDICATIONS 1. Ferrous sulfate 325 mg tablet twice daily. 2. Amlodipine 5 mg once daily. 3. Fluconazole 50 mg daily for five days. 4. Lasix 40 mg one to two tablets twice a day. 5. Allopurinol 300 mg daily. 6. Clonidine 0.1 mg twice daily. 7. Protonix 40 mg twice daily. 8. Eliquis 5 mg twice daily. 9. Lyrica 50 mg three times daily. 10. Carvedilol 12.5 mg twice daily. 11. Atorvastatin 40 mg daily. 12. Potassium chloride 20 mEq daily. 13. Insulin NPH/regular insulin 50 units subcutaneously twice daily. 14. Calcium 625 mg daily. 15. Plavix 75 mg daily. 16. Nitroglycerin 0.4 mg sublingual every five minutes times three as needed for chest pain. 17. Vitamins C, E, zinc, copper, lutein, Zeaxan one capsule twice daily. 18. Calcium carbonate and citrate plus vitamin D3 one tablet daily. 19. Oxygen 2L per minute. 20. Docusate sodium 100 mg twice daily. ALLERGIES IODINATED DYES which caused hives, CODEINE which caused itching, DILAUDID caused dizziness, LISINOPRIL caused itching, PENICILLIN caused itching, FLUCONAZOLE caused diarrhea. REVIEW OF SYSTEMS CONSTITUTIONAL: No appetite or weight change. No fever, chills, or sweating. No recent infection. HEENT: Ears: No tinnitus or hearing problem. Nose: No nasal discharge or epistaxis. Throat: No sore throat or mouth ulcers. Eyes: No diplopia or visual changes. RESPIRATORY: She has cough with expectoration and exertional shortness of breath. No hemoptysis. CARDIOVASCULAR: No chest pain, orthopnea, or paroxysmal nocturnal dyspnea (PND). No edema. No palpitations. GASTROINTESTINAL: No nausea or vomiting. She has alternating diarrhea and constipation. No change in bowel movements. No heartburn or swallowing difficulties. No abdominal pain. No jaundice. No hematemesis, melena, or rectal bleeding. GENITOURINARY: No hematuria or dysuria. MUSCULOSKELETAL: She has generalized joint pain, especially in the fingers, hips, knees, ankles, back. NEUROLOGIC: She has tingling and numbness in the hands and the feet. She has also headache. No convulsions. HEMATOLOGIC/LYMPHATIC: No bleeding. She bruises easily. She is weak, tired, and fatigued. No enlarged lymph nodes. SKIN: No lumps. She has skin rash from her psoriasis. PSYCHIATRIC: No anxiety or depression. PHYSICAL EXAMINATION GENERAL: Looks stable. Well developed, well nourished, and in no acute distress. VITAL SIGNS: Blood pressure 104/59, pulse 77 per minute, respirations 16 per minute, temperature 98.5, pulse ox 90% on 2L oxygen. HEENT: Head: Atraumatic. No sinus tenderness to palpation. Eyes: No icterus or conjunctivitis. Mouth and throat: No oral thrush or mucositis. NECK: Supple. No cervical or supraclavicular lymphadenopathy. LUNGS: Clear to auscultation and percussion bilaterally. HEART: Regular rate and rhythm. No gallops, murmurs, clicks, or rubs. ABDOMEN: Soft and lax. No tenderness. No hepatosplenomegaly. No masses. EXTREMITIES: No cyanosis or clubbing. There is bilateral edema. LYMPHATICS: No peripheral lymphadenopathy. NEUROLOGICAL: Conscious, alert, and oriented times three. No focal motor or sensory deficits. PSYCHIATRIC: Mood and affect appear normal. SKIN: No skin rash, bruise, or purpuric eruption. ASSESSMENT Macrocytic anemia with hemoglobin 8.9, hematocrit 27.8, and MCV 106.1, associated with low white count of 4.2 and low platelets at 90,000, so the patient has pancytopenia. With her age and macrocytosis, vitamin B12 and folic acid deficiencies could be the reason for her anemia, but myelodysplastic syndrome could also be the reason for her macrocytic anemia. Bone marrow disease like myelodysplastic syndrome is common in her age group. I am planning to run a basic workup for the anemia including CBC, reticulocyte count, haptoglobin, iron studies with ferritin, soluble transferrin receptor assay, B12/folate level, red cell folate, and methylmalonic acid assay. I am planning to also check serum protein immunoelectrophoresis and erythropoietin level. I will consider bone marrow aspiration biopsy if those tests would come back negative or do not explain her anemia. PLAN 1. CBC. 2. Retic count. 3. Haptoglobin. 4. B12/folate level. 5. Methylmalonic acid assay. 6. Red cell folate. 7. Iron studies with ferritin. 8. Soluble transferrin receptor assay. 9. Serum protein immunoelectrophoresis. 10. Erythropoietin level. 11. Consider bone marrow aspiration biopsy. 12. Patient to return after the above for further evaluation and management. 13. Patient to contact us for any new concerns or complaints. [employer]
[2019-01-26 11:21] VITALS: BP 106/62
--- NOTE | 2019-01-26 23:48 | EL-TARABILY ONCOLOGY NOTE ---
EVENT DATE: January 26, 2019 DIAGNOSIS Macrocytic anemia with pancytopenia. CHIEF COMPLAINT Patient is here today for followup of her anemia and pancytopenia. HEMATOLOGY/ONCOLOGY HISTORY Patient is a 74-year-old female with multiple medical problems who is followed by Heather Birmingham, and the patient was found to have macrocytic anemia. Her CBC on the November showed white count at 4.1, hemoglobin 9.5, hematocrit 30.1, and platelets 74,000. MCV was high at 106.1. Repeat CBC on the December showed white count 4.2, hemoglobin 8.9, hematocrit 17.8, platelets 90,000, MCV 106.1. Her differential count was nearly normal. Patient denies any constitutional symptoms. Repeat CBC showed white count 3.8, hemoglobin 9.4, hematocrit 30, MCV 107.1, platelet count 79,000. Absolute lymphocytic count was low at 0.8. Haptoglobin level was normal at 33. Absolute retic count was 0.1624. Erythropoietin level was 49. Serum iron was 77, TIBC 330, iron saturation 23.3, ferritin 49, and soluble transferrin receptor assay was high at 6. Vitamin B12 was 363, methylmalonic acid was high at 0.59. Serum folate was 11.2, but red cell folate was normal at 937. Serum protein immunoelectrophoresis showed a faint band in the IgG lambda, associated with specific immune response or an early monoclonal protein. PAST MEDICAL HISTORY 1. Coronary artery disease. 2. Congestive heart failure. 3. COPD. 4. GERD. 5. Chronic kidney disease. 6. History of renal stones. 7. Atrial fibrillation. 8. Type 2 diabetes. 9. Hypertension. 10. Hypercholesterolemia. 11. Psoriasis. PAST SURGICAL HISTORY 1. Aortic valve replacement. 2. Pacemaker placement. 3. Defibrillator placement. 4. Surgery for renal stones. 5. Appendectomy. 6. Cholecystectomy. 7. Back surgery. 8. Tonsillectomy as a child. 9. Angioplasty. 10. Stent placement for the coronaries. 11. Removal of skin cancer. FAMILY HISTORY Brother with cancer, probably lung cancer with brain metastasis. Maternal grandmother with stomach cancer. Maternal cousin with pancreatic cancer. Another maternal cousin with ovarian cancer. Sister with anemia. SOCIAL HISTORY Patient is a with three children. One is surviving. She is a homemaker. She quit smoking 2004 after one pack a day for over 40 years. Denies any abuse of alcohol or illicit drugs. CURRENT MEDICATIONS 1. Ferrous sulfate 325 mg tablet twice daily. 2. Amlodipine 5 mg once daily. 3. Fluconazole 50 mg daily for five days. 4. Lasix 40 mg one to two tablets twice a day. 5. Allopurinol 300 mg daily. 6. Clonidine 0.1 mg twice daily. 7. Protonix 40 mg twice daily. 8. Eliquis 5 mg twice daily. 9. Lyrica 50 mg three times daily. 10. Carvedilol 12.5 mg twice daily. 11. Atorvastatin 40 mg daily. 12. Potassium chloride 20 mEq daily. 13. Insulin NPH/regular insulin 50 units subcutaneously twice daily. 14. Calcium 625 mg daily. 15. Plavix 75 mg daily. 16. Nitroglycerin 0.4 mg sublingual every five minutes times three as needed for chest pain. 17. Vitamins C, E, zinc, copper, lutein, Zeaxan one capsule twice daily. 18. Calcium carbonate and citrate plus vitamin D3 one tablet daily. 19. Oxygen 2L per minute. 20. Docusate sodium 100 mg twice daily. ALLERGIES IODINATED DYES which caused hives, CODEINE which caused itching, DILAUDID caused dizziness, LISINOPRIL caused itching, PENICILLIN caused itching, FLUCONAZOLE caused diarrhea. REVIEW OF SYSTEMS CONSTITUTIONAL: No appetite or weight change. No fever, chills, or sweating. No recent infection. HEENT: Ears: No tinnitus or hearing problem. Nose: No nasal discharge or epistaxis. Throat: No sore throat or mouth ulcers. Eyes: No diplopia or visual changes. RESPIRATORY: She has cough and shortness of breath. No hemoptysis. CARDIOVASCULAR: No chest pain, orthopnea, or paroxysmal nocturnal dyspnea (PND). No edema. No palpitations. GASTROINTESTINAL: No nausea or vomiting. She has alternating diarrhea and constipation. No change in bowel movements. No heartburn or swallowing difficulties. No abdominal pain. No jaundice. No hematemesis, melena, or rectal bleeding. GENITOURINARY: No hematuria or dysuria. MUSCULOSKELETAL: She has generalized musculoskeletal pain. NEUROLOGIC: She has tingling and numbness in the hands and the feet and legs sometimes. No headaches or convulsions. HEMATOLOGIC/LYMPHATIC: No bleeding or easy bruising. She is weak, tired, and fatigued. No enlarged lymph nodes. SKIN: No skin rash or lumps. PSYCHIATRIC: No anxiety or depression. PHYSICAL EXAMINATION GENERAL: Looks stable. Well developed, well nourished, and in no acute distress. VITAL SIGNS: Blood pressure 106/62, pulse 68 per minute, respirations 16 per minute, temperature 97.1, pulse oximetry 91% on 2L oxygen. HEENT: Head: Atraumatic. No sinus tenderness to palpation. Eyes: No icterus or conjunctivitis. Mouth and Throat: No oral thrush or mucositis. NECK: Supple. No cervical or supraclavicular lymphadenopathy. LUNGS: Clear to auscultation and percussion bilaterally. HEART: Regular rate and rhythm. No gallops, murmurs, clicks, or rubs. ABDOMEN: Soft and lax. No tenderness. No hepatosplenomegaly. No masses. EXTREMITIES: No cyanosis, clubbing, or edema. LYMPHATICS: No peripheral lymphadenopathy. NEUROLOGIC: Conscious, alert, and oriented times three. No focal motor or sensory deficits. PSYCHIATRIC: Mood and affect appear normal. SKIN: No skin rash, bruise, or purpuric eruption. DIAGNOSTIC DATA CBC showed white count 3.8, hemoglobin 9.4, hematocrit 30, platelets 79,000, MCV 107.1. Absolute lymphocytic count was 0.8. Absolute retic count was 0.1624. Haptoglobin was 33. Serum iron 77, TIBC 330, and iron saturation 23.3%. Ferritin was 49. Soluble transferrin receptor assay was high at 6. Ferritin level was 49. B12 was 363. Methylmalonic acid was 0.59, which is high. Serum folate was normal at 11.2, and red cell folate was normal at 937. Serum protein immunoelectrophoresis showed a faint band at IgG lambda, suggestive of a specific immune response or an early monoclonal protein. ASSESSMENT Macrocytic anemia. Could be multifactorial in origin. There may be a biochemical deficiency of vitamin B12 as methylmalonic acid assay was high at 0.59. I am planning to treat her with vitamin B12 shots 1000 mcg daily for one week, then weekly for four weeks, then once monthly after that. She showed also normal iron studies, but soluble transferrin receptor assay was high at 6, confirming the presence of iron deficiency. I am planning to treat her with Injectafer 750 mg intravenous infusion weekly for two weeks. Her serum protein immunoelectrophoresis showed a faint band at IgG lambda, suggestive of early monoclonal protein or immune response. I am planning to get a skeletal bone survey and check the free light chain assay and beta-2 microglobulin. I will see the patient in three months after the supplementation with iron and vitamin B12 and after investigation for a possible plasma cell dyscrasia. If the deficiency is corrected with the supplements, but the CBC did not correct, then I will proceed with bone marrow aspiration biopsy to rule out the possibility of underlying bone marrow disease like myelodysplastic syndrome. I explained that to the patient, and she is agreeable with the plan of management. PLAN 1. Vitamin B12 1000 mcg deep subcutaneously or intramuscularly daily for seven days, then weekly for four weeks, and then once monthly after that. 2. Injectafer 750 mg intravenous infusion weekly for two weeks. 3. Schedule bone survey. 4. Check beta-2 microglobulin and free light chain assay. 5. Patient to return in three months with CBC, soluble transferrin receptor assay, methylmalonic acid assay. 6. Consider bone marrow aspiration biopsy. 7. Patient to contact us for any new concern or complaints. MTDD
[2019-01-30 11:09] VITALS: BP 117/63
[2019-02-01 10:59] VITALS: BP 108/61
[2019-02-01] MEDS: NS(*) 0.9% 100 ML BAG 100 ML IVPB PRN (11:38)
[2019-02-01] MEDS: LIDOCAINE/SOD BICARB 8.4% SYR ID PRN (11:38)
[2019-02-01 12:26] VITALS: BP 118/71
--- NOTE | 2019-02-01 15:28 | RADIOLOGY IMAGING REPORT ---
FACILITY: [facility] PATIENT NAME: Eugenia Rushing : 1945 MR: [id number] V: [id number] EXAM DATE: ORDERING PHYSICIAN: MAYELIN PEARL TECHNOLOGIST: Location: [facility] Patient: Eugenia Rushing : 1945 Visit/Account:[id number] Date of Sevice: 02/01/2019 Exam type: BONE SURVEY COMPLETE History: Anemia, history of skin cancer Comparison: Two view chest November 24, 2018. Findings: Cardiac silhouette is enlarged but unchanged when compared the prior study. There is a dual lead car diac pacemaker/AICD device. There is a prosthetic aortic valve. Small chronic peribronchial thicken ing. There are multilevel spondylotic changes of the cervical spine most prominent from C4 to C7. No lytic or blastic lesions are identified in the skull. There are extensive multilevel spondylotic changes in the thoracic spine. No lytic or blastic bone lesions identified in either humerus There are severe multilevel spondylotic changes of the lumbar spine severe disc space narrowing and s clerotic endplate changes. There has also been fusion of L2-3 vertebral bodies. Extensive vascular calcifications are noted in the abdomen and pelvis. Soft tissue calcination occasions are noted post erior to the upper lumbar spine There are sclerotic changes of the SI joints bilaterally along the inferior third No lytic or blastic bone lesions are identified in the femurs. There are extensive calcifications in the thighs bilaterally and popliteal fossa cyst. There are moderate degenerative changes at the med ial aspect of both kidneys IMPRESSION: 1. No lytic or blastic bone lesions are identified. There are multilevel degenerative changes as de scribed above Report Dictated By: Negra Mike MD at 02/01/2019 3:19 PM Report E-Signed By: Negra Mike MD at 02/01/2019 3:24 PM WSN:[email or web address]
[2019-02-02 10:59] VITALS: BP 105/56
[2019-02-03] MEDS: CYANOCOBALAMIN 1000MCG/ML VIAL IM ONLY PRN (11:43)
[2019-02-03 12:04] VITALS: BP 144/77
[2019-02-04] MEDS: CYANOCOBALAMIN 1000MCG/ML VIAL IM ONLY PRN (11:36)
[2019-02-05] MEDS: CYANOCOBALAMIN 1000MCG/ML VIAL IM ONLY PRN (11:01)
[2019-02-05 11:05] VITALS: BP 118/66
[2019-02-08 11:13] VITALS: BP 113/63
[2019-02-08] MEDS: LIDOCAINE/SOD BICARB 8.4% SYR ID PRN (11:39)
[2019-02-08] MEDS: NS(*) 0.9% 100 ML BAG 100 ML IVPB PRN (11:40)
[2019-02-08 12:10] VITALS: BP 102/61
[2019-02-12 10:55] VITALS: BP 112/51
[2019-02-19 11:00] VITALS: BP 100/57
[2019-02-19] MEDS: CYANOCOBALAMIN 1000MCG/ML VIAL IM ONLY PRN (11:05)
[2019-02-26] MEDS: CYANOCOBALAMIN 1000MCG/ML VIAL IM ONLY PRN (11:19)
[2019-03-05 11:02] VITALS: BP 116/63
[2019-03-05] MEDS: CYANOCOBALAMIN 1000MCG/ML VIAL IM ONLY PRN (11:02)
[~2019-04-02 10:04] MED LIST changes: +CYANOCOBALAMIN 1000MCG/ML VIAL IM ONLY ONE; +DEXTROSE 5%(*) 100 ML BAG 100 ML IVPB PRN; +FERRIC CARBOXY 750 MG SDV 750 MG in NS(*) 0.9% 250 ML BAG 250 ML IVP ONE; +HYDROCORTISONE 100 MG/2 ML IVP ONE; +PREG100C44 PO; -RANI-366 PO; +RANI-54 PO; +diphenhydrAMINE 50 MG/ML VIAL IVP ONE
[2019-04-02] MEDS: CYANOCOBALAMIN 1000MCG/ML VIAL IM ONLY PRN (10:18)
[2019-04-02 10:22] VITALS: BP 105/53
[2019-04-04] MEDS ORDERED: CARV12.578 PO (09:04)
[2019-04-12] MEDS ORDERED: NEED-601 MC (16:18)
[2019-04-12] MEDS ORDERED: HUM100VI15 SQ (16:33)
[2019-04-13] MEDS ORDERED: PANT40TA65 PO (17:02)
[2019-04-13] MEDS ORDERED: ATOR40TA69 PO (17:02)
[2019-04-13] MEDS ORDERED: FURO-47 PO (17:02)
[2019-04-13] MEDS ORDERED: NEED-601 MC (17:02)
[2019-04-17] MEDS ORDERED: DOCU-416 PO (09:37)
--- NOTE | 2019-04-17 12:05 | NUR ---
Joyce from [facility] called our office on behalf of the patient. She states that the patient is having "severe itching". She states that she has been having he itching ever since starting the B12 injections. She states that the patient was advised by this office to take benadryl and "another anti-histamine" that she cannot recall the name of. She states that she doesn't like taking them because they make her very sleepy. According to the records the patient started the B12 injections in January and is currently on monthly injections. She denies any new medications, denies rash, fever, sweats or any other symptoms. Nurse reviewed this information with the Nurse Practitioner. After review the patient was advised to take benadryl 25 mg PO QHS and to take generic zyrtec 10 mg QAM. She was also advised to use any OTC moisturizer. She has a follow up appointment with Dr. Harding on 04/27 and at this point is not scheduled to receive any further B12 injections. Home Health Nurse verbalized understanding and agrees with the plan of care.
== END 2019-04-18 ==
LOC: SPU 10:04
PROVIDERS: ATTEND Internal Medicine Hematology
DX: D53.9 Nutritional anemia, unspecified (principal); D61.818 Other pancytopenia; R53.1 Weakness; R53.83 Other fatigue; R05 Cough; R06.02 Shortness of breath; Z79.899 Other long term (current) drug therapy; Z87.891 Personal history of nicotine dependence; E11.9 Type 2 diabetes mellitus without complications; N18.9 Chronic kidney disease, unspecified; J44.9 Chronic obstructive pulmonary disease, unspecified; I50.9 Heart failure, unspecified; I25.10 Atherosclerotic heart disease of native coronary artery without angina pectoris; I12.9 Hypertensive chronic kidney disease with stage 1 through stage 4 chronic kidney disease, or unspecified chronic kidney disease
CPT/HCPCS: 77075; 82232; 82607; 82668; 82728; 82746; 82747; 82784; 83010; 83540; 83550; 83883; 83921; 84160; 84165; 84238; 85025; 86334; 96365; 96372; G0463; J1200; J1439; J1720; J3420; J7050; 99202; 99212

== ENCOUNTER → 2019-05-07 | Outpatient (CLI) | payer MEDICARE, MEDICAID ==
[2018-04-29 10:58] VITALS: BMI 37.5
[~2019-05-07] MED LIST changes: -CYANOCOBALAMIN 1000MCG/ML VIAL IM ONLY ONE; -DEXTROSE 5%(*) 100 ML BAG 100 ML IVPB PRN; +DOCU-416 PO; -FERRIC CARBOXY 750 MG SDV 750 MG in NS(*) 0.9% 250 ML BAG 250 ML IVP ONE; -HYDROCORTISONE 100 MG/2 ML IVP ONE; -diphenhydrAMINE 50 MG/ML VIAL IVP ONE
== END ==
LOC: LAB 16:09
PROVIDERS: ATTEND Nurse Practitioner Family
DX: E11.9 Type 2 diabetes mellitus without complications (principal)
CPT/HCPCS: 36415; 82040; 82247; 82310; 82374; 82435; 82565; 82947; 83036; 84075; 84132; 84155; 84295; 84450; 84460; 84520

== ENCOUNTER → 2019-05-31 | Outpatient (CLI) | payer MEDICARE, MEDICAID ==
[2018-04-29 10:58] VITALS: BMI 37.5
[2019-05-31 13:20] LABS: PLATELET COUNT, AUTOMATED 78 K/uL (150-450)
--- NOTE | 2019-05-31 16:24 | RADIOLOGY IMAGING REPORT ---
FACILITY: [facility] PATIENT NAME: Eugenia Rushing : 1945 MR: [id number] V: [id number] EXAM DATE: ORDERING PHYSICIAN: SANTOS HAMLIN TECHNOLOGIST: [place] [facility] [place] Patient: Eugenia Rushing : 1945 Visit/Account:[id number] Date of Sevice: 05/31/2019 Abdominal series with single view of the chest: 05/31/2019 3:16 PM HISTORY: abd pain - anemia COMPARISON: 05/16/2018 . Chest x-ray today 2019 FINDINGS: Mild amount of fecal material in the colon. No bowel distention or air-fluid levels. Rig ht upper quadrant cholecystectomy clips. No obvious organomegaly. No visible calculus. Degenerativ e changes in the spine. Heart size is unchanged. Aorta is atherosclerotic. Pacemaker lead tips project over the right atri um and right ventricle. Pulmonary vasculature may be mildly congested but without overt parenchymal edema. No focal consolidation.. Both costophrenic angles are blunted but with a similar appearance to previous. Bony thorax is intact. IMPRESSION: 1. Nonspecific bowel gas pattern. 2. Cardiac megaly with some vascular congestion and small effusions or some chronic scarring blunting the costophrenic angles. Borderline CHF may be present. Report Dictated By: Austin Ott MD at 05/31/2019 4:10 PM Report E-Signed By: Austin Ott MD at 05/31/2019 4:15 PM WSN:[email or web address]
== END ==
LOC: LAB 12:58
PROVIDERS: ATTEND Nurse Practitioner Family
DX: D64.9 Anemia, unspecified (principal); D10.9 Benign neoplasm of pharynx, unspecified; I95.9 Hypotension, unspecified; I50.9 Heart failure, unspecified; I51.7 Cardiomegaly
CPT/HCPCS: 36415; 74022; 82040; 82247; 82310; 82374; 82435; 82565; 82947; 83880; 84075; 84132; 84155; 84295; 84443; 84450; 84460; 84520; 85025

== ENCOUNTER → 2019-06-05 | Outpatient (CLI) | payer MEDICARE, MEDICAID ==
[2018-04-29 10:58] VITALS: BMI 37.5
[2019-06-05 14:18] LABS: PLATELET COUNT, AUTOMATED 65 K/uL (150-450)
== END ==
LOC: LAB 13:41
PROVIDERS: ATTEND Nurse Practitioner Family
DX: D64.9 Anemia, unspecified (principal); R10.9 Unspecified abdominal pain
CPT/HCPCS: 36415; 82274; 85025